=== PATIENT | female | born 1945 | race Caucasian/White ===

== ENCOUNTER 2016-07-17 04:43 | Inpatient (IN) | payer OTHER ==
[~2016-07-17] VITALS: Ht 152.4 cm; Wt 56.2 kg
[~2016-07-17 04:43] MED LIST: ALBU0.5N2 NEB; ALBUAER2 INH; ASPI1TAB83 PO; ATRINS NEB; CRFL PO; CYAN10005 PO; DILT240C57 PO; FLUO20CA35 PO; FLUT0.15 NAE; FLUT1INH INH; FURO-85 PO; HYDR5SYP11 PO; IBUP-103 PO; LORA-741 PO; OXGN; PANT40TA PO; SALI0.6517 NAE; SIMV-150 PO; TIOT1SPR INH
[2016-07-17] MEDS ORDERED: SODIUM CHLORIDE 0.9% 1000ML 250 ML IV STA (04:54)
[2016-07-17] MEDS ORDERED: ALBUT/IPRATROP 3MG/0.5MG NEB 3 ML VIAL INH STA (04:54)
[2016-07-17] MEDS ORDERED: METHYLPREDNISOLONE 125 MG VIAL IV STA (04:54)
--- NOTE | 2016-07-17 05:00 | EMERGENCY ROOM VISIT NOTE ---
History Report prepared by Julianne: Sarah Poe Under the Supervision of: Dr. Gil Gonzales M.D. First contact with patient: 04:47 Chief Complaint: RESPIRATORY PROBLEMS Stated Complaint: BREATHING DIFFICULTY History of Present Illness The patient is a 71 year old female who presents to the Emergency Room with complaints of worsening breathing problems for the past few days. She reports she was hospitalized at [facility] recently after running out of Ativan and going through withdrawal. She was treated in their psychiatric chu and was sent home approximately 4 days ago. In the past few days, her breathing has become more labored and she has become more short of breath. She admits to a history of COPD and has also been experiencing an occasionally productive cough and intermittent fever. EMS gave her a breathing treatment in the field which provided some relief. The patient notes she had left over antibiotics at home and started taking them recently when she started coughing more frequently. Source of History: patient, EMS Onset: past few days Position: chest Timing: worsening Modifying Factors (Relieving): other (breathing treatment) Associated Symptoms: + cough, + fevers Review of Systems See HPI for pertinent positives & negatives. A total of 10 systems reviewed and were otherwise negative. Past Medical & Surgical Medical Problems: (1) Benign hypertension (2) CLL (chronic lymphocytic leukemia) (3) COPD (chronic obstructive pulmonary disease) (4) COPD exacerbation (5) Dizzy spells (6) Elevated troponin (7) Non-small cell lung cancer (8) Pneumonia Surgical Problems: (1) S/P aortic valve replacement (2) S/P carpal tunnel release Family History Patient reports no known family medical history. Social History Smoking Status: Former Smoker Alcohol Use: none Drug Use: none Marital Status: Housing Status: lives with significant other Occupation Status: retired Current/Historical Medications Scheduled Cyanocobalamin (Vitamin B-12), 1,000 MCG PO DAILY Diltiazem Hcl Extended Release (Tiazac 300 Mg), 300 MG PO DAILY Donepezil HCl (Donepezil HCl), 5 MG PO DAILY Fluoxetine HCl (Fluoxetine HCl), 10 MG PO QAM Fluoxetine Hcl (Prozac), 40 MG PO QAM Fluticasone Furoate-Vilanterol (Breo Ellipta), 1 PUFF INH DAILY Fluticasone Propionate (Nasal) (Flonase Allergy Relief), 1 SPRAY PAULETTE BID Furosemide (Lasix), 1 TAB PO Q2D Gabapentin (Gabapentin), 100 MG PO TID Ipratropium [place] (Ipratropium [place]), 1 VIAL NEB QID Lactobacillus Acidophilus (Lactinex), 1 TAB PO DAILY Memantine HCl (Memantine HCl), 5 MG PO DAILY Oxygen (Oxygen), 2 LITERS NA CONTINOUS Pantoprazole (Protonix), 40 MG PO HS Saline ([place] Nasal [place]), 2 SPRAYS PAULETTE BID Simvastatin (Simvastatin), 10 MG PO HS Tiotropium [place] Monohydrate (Spiriva Respimat), 2 PUFFS INH DAILY Trazodone Hcl (Trazodone), 50 MG PO HS Scheduled PRN Albuterol Hfa (Ventolin Hfa), 2-4 PUFFS INH Q6H PRN for SOB/Wheezing Albuterol Sulf (Proventil 0.083% 2.5MG/3ML), 2.5 MG INH QID PRN for SOB/Wheezing Hydrocodone W/ Homatropine (Hycodan 5/1.5MG 5 Ml), 5 ML PO Q4H PRN for Cough Ipratropium [place] (Ipratropium [place]), 1 VIAL NEB QID PRN for SOB/Wheezing Levalbuterol Hcl (Levalbuterol Hcl), 1 VIAL NEB QID PRN for SOB/Wheezing Nystatin (Nystatin Suspension), 5 ML PO QID PRN for NEEDED Sucralfate (Carafate), 10 ML PO TID PRN for STOMACHE IRRITATION Allergies Coded Allergies: Sulfa Antibiotics (Verified Allergy, Intermediate, HIVES, 07/17/16) Physical Exam Vital Signs Date Time Temp Pulse Resp B/P Pulse Ox O2 Delivery O2 Flow Rate FiO2 07/17/16 07:00 64 22 144/65 96 Nasal Cannula 3.5 07/17/16 06:15 71 16 140/67 96 Nasal Cannula 3.5 07/17/16 05:49 63 24 138/65 97 Nasal Cannula 3.5 07/17/16 05:02 65 07/17/16 04:48 99 Nasal Cannula 3.5 07/17/16 04:48 36.8 66 17 148/69 99 Nasal Cannula 2.5 07/17/16 04:48 98 Nasal Cannula 3.5 07/17/16 04:47 98 Nasal Cannula 3.5 Physical Exam GENERAL: Patient is in no acute distress. HEENT: No acute trauma, normocephalic atraumatic, mucous membranes moist, no nasal congestion, no scleral icterus. NECK: No stridor, no adenopathy, no meningismus, trachea is midline. LUNGS: Decreased breath sounds with bilateral wheezes, breath sounds are equal, mild respiratory distress. HEART: 2/6 systolic murmur, no gallops or rubs, regular rate and rhythm. ABDOMEN: Soft, nontender, bowel sounds positive, no hernias, no peritonitis. EXTREMITIES: No cyanosis or edema, full range of motion of all the joints without pain or difficulty, no signs for acute trauma. NEUROLOGIC: Oriented x 3, no acute motor or sensory deficits, no focal weakness. SKIN: No rash, no jaundice, no diaphoresis. Medical Decision & Procedures ER Provider Diagnostic Interpretation: This X-Ray was reviewed and interpreted by myself as we do not have a radiologist on staff overnight. CHEST X-RAY Chronic hilar changes seen. There is a possible infiltrate at the left base. Laboratory Results 07/17/16 04:15 Red Blood Count 3.88, Mean Corpuscular Volume 91.2, Mean Corpuscular Hemoglobin 30.7, Mean Corpuscular Hemoglobin Concent 33.6, Mean Platelet Volume 9.5 07/17/16 04:15 Test 07/17/16 04:15 07/17/16 05:19 White Blood Count 10.35 K/uL (4.8-10.8) Red Blood Count 3.88 M/uL (4.2-5.4) Hemoglobin 11.9 g/dL (12.0-16.0) Hematocrit 35.4 % (37-47) Mean Corpuscular Volume 91.2 fL (80-100) Mean Corpuscular Hemoglobin 30.7 pg (25-34) Mean Corpuscular Hemoglobin Concent 33.6 g/dl (32-36) Platelet Count 234 K/uL (130-400) Mean Platelet Volume 9.5 fL (7.4-10.4) RDW Standard Deviation 44.0 fL (36.4-46.3) RDW Coefficient of Variation 13.2 % (11.5-14.5) Neutrophils % (Manual) 46.1 % Lymphocytes % (Manual) 29.6 % Variant Lymphocytes % (manual) 20.9 % Monocytes % (Manual) 1.7 % Eosinophils % (Manual) 1.7 % Neutrophils # (Manual) 4.77 K/uL (1.4-6.5) Total Absolute Neutrophils 4.77 K/uL (1.4-6.5) Lymphocytes # (Manual) 3.06 K/uL (1.2-3.4) Absolute Variant Lymphocytes 2.16 K/uL Total Absolute Lymphocytes 5.23 K/uL (1.2-3.4) Monocytes # (Manual) 0.18 K/uL (0.11-0.59) Eosinophils # (Manual) 0.18 K/uL (0-0.5) Smudge Cells PRESENT Prothrombin Time 10.7 SECONDS (9.0-12.0) Prothromb Time International Ratio 1.0 (0.9-1.1) Activated Partial Thromboplast Time 28.7 SECONDS (21.0-31.0) Partial Thromboplastin Ratio 1.1 Anion Gap 5.0 mmol/L (3-11) Est Creatinine Clear Calc Drug Dose 59.7 ml/min Estimated GFR () 92.3 Estimated GFR (Non- 79.6 BUN/Creatinine Ratio 13.5 (10-20) Calcium Level 9.7 mg/dl (8.5-10.1) Magnesium Level 1.9 mg/dl (1.8-2.4) Total Bilirubin 0.3 mg/dl (0.2-1) Aspartate Amino Transf (AST/SGOT) 28 U/L (15-37) Alanine Aminotransferase (ALT/SGPT) 27 U/L (12-78) Alkaline Phosphatase 87 U/L (45-117) Troponin I < 0.015 ng/ml (0-0.045) Total Protein 7.4 gm/dl (6.4-8.2) Albumin 3.1 gm/dl (3.4-5.0) Globulin 4.3 gm/dl (2.5-4.0) Albumin/Globulin Ratio 0.7 (0.9-2) Influenza Type A Antigen Neg for Influ A (NEG) Influenza Type B Antigen Neg for Influ B (NEG) Laboratory results reviewed by me. Medications Administered Medications (Trade) Dose Ordered Sig/Mee Route Start Time Stop Time Status Last Admin Dose Admin Sodium Chloride (Nss 1000ml) 250 ml @ 999 mls/hr Q16M STAT IV 07/17/16 04:54 07/17/16 05:09 DC 07/17/16 05:16 999 MLS/HR Methylprednisolone Sodium Succinate (Solu-Medrol IV) 125 mg NOW STAT IV 07/17/16 04:54 07/17/16 04:56 DC 07/17/16 05:15 125 MG Albuterol/ Ipratropium (Duoneb) 3 ml NOW STAT INH 07/17/16 04:54 07/17/16 04:56 DC 07/17/16 05:15 3 ML Piperacillin Sod/ Tazobactam Sod (Zosyn Iv) 4.5 gm NOW STAT IV 07/17/16 05:27 07/17/16 05:28 DC 07/17/16 05:47 4.5 GM ECG Indication: SOB/dyspnea Rate (beats per minute): 65 Rhythm: normal sinus (normal sinus rhythm) Findings: LBBB, no acute ischemic change, no ectopy ED Course 0448: The patient was evaluated in room A10. A complete history and physical exam was performed. 0454: Duoneb 3 ml INH, Solu-Medrol 125 mg IV, NSS 250 ml @ 999 mls/hr IV. 0527: Zosyn 4.5 gm IV. 0552: I reevaluated the patient. She is looking more comfortable. I discussed my recommendation that she remain in the hospital for further evaluation and management and she verbalized complete understanding and agreement. 0615: I discussed the patients case with Dr. Mckeon, [facility] Hospitalist. The patient will be further evaluated. Medical Decision The differential diagnoses considered include pneumonia, bronchitis, exacerbation of COPD, pneumothorax, CHF, cardiac ischemia, anemia, electrolyte imbalance and influenza. There is no leukocytosis or concerning anemia. No significant electrolyte abnormality, kidney failure or hepatitis. There is no coagulopathy. EKG shows a normal sinus rhythm with a left bundle branch block. No acute ischemia. Cardiac enzyme testing times one is not consistent with acute cardiac injury. Chest x-ray shows a hazy left lower lung consistent with a possible pneumonia. Influenza testing is negative. Blood cultures are pending. The patient received a small amount of IV saline, she was given IV Solu-Medrol and a DuoNeb. She received IV Zosyn. The patient presents with some respiratory difficulty. She appears to have an early pneumonia on x-ray. I do think the pneumonia has caused a COPD exacerbation as well. Admission/observation is warranted. I did speak to case management, the on-call hospitalist was consulted. Consults Time Called: 0555 Consulting Physician: Dr. Mckeon, [facility] Hospitalist Returned Call: 0615 I discussed the patients case with Dr. Mckeon [facility] Hospitalist. The patient will be further evaluated. Impression Primary Impression: Pneumonia Additional Impressions: SOB (shortness of breath) COPD exacerbation Scribe Attestation The scribe's documentation has been prepared under my direction and personally reviewed by me in its entirety. I confirm that the note above accurately reflects all work, treatment, procedures, and medical decision making performed by me. Departure Information Dispostion Being Evaluated By Hospitalist Referrals Kathy Ventura M.D. (PCP) Patient Instructions My [facility] Problem Qualifiers
[2016-07-17 05:08] LABS: HEMATOCRIT 35.4 % (37-47); MEAN CELL VOLUME 91.2 fL (80-100); MEAN CORPUSCULAR HEMOGLOBIN 30.7 pg (25-34); MEAN CORPUSCULAR HGB CONC 33.6 g/dl (32-36); MEAN PLATELET VOLUME 9.5 fL (7.4-10.4); PLATELET COUNT 234 K/uL (130-400); RED BLOOD COUNT 3.88 M/uL (4.2-5.4); WHITE BLOOD COUNT 10.35 K/uL (4.8-10.8)
[2016-07-17 05:22] LABS: PARTIAL THROMBOPLASTIN RATIO 1.1; PROTHROMBIN TIME (PATIENT) 10.7 SECONDS (9.0-12.0)
[2016-07-17] MEDS ORDERED: PIPERACILLIN/TAZOBACTAM 4.5 GM/100ML D5W IV STA (05:27)
[2016-07-17 05:37] LABS: ALT/SGPT 27 U/L (12-78); AST/SGOT 28 U/L (15-37); BLOOD UREA NITROGEN 10 mg/dl (7-18); BUN/CREATININE RATIO 13.5 (10-20); CALCIUM 9.7 mg/dl (8.5-10.1); CARBON DIOXIDE 34 mmol/L (21-32); CHLORIDE 100 mmol/L (98-107); CREATININE 0.75 mg/dl (0.60-1.20); GLUCOSE 121 mg/dl (70-99); MAGNESIUM 1.9 mg/dl (1.8-2.4); POTASSIUM 3.8 mmol/L (3.5-5.1); SODIUM 139 mmol/L (136-145)
[2016-07-17 05:42] LABS: ALB/GLOB RATIO 0.7 (0.9-2); ALKALINE PHOSPHATASE 87 U/L (45-117)
[2016-07-17 06:08] LABS: EOSINOPHIL % 1.7 %; LYMPH ABS # 3.06 K/uL (1.2-3.4); LYMPHOCYTE % 29.6 %; NEUTROPHILS % 46.1 %; VARIANT LYM ABS # 2.16 K/uL; VARIANT LYMPHOCYTE % 20.9 %
[2016-07-17] MEDS ORDERED: OPTIRAY 320 IV PRN (06:15)
[2016-07-17 06:19] LABS: SMUDGE CELLS PRESENT
[2016-07-17] MEDS ORDERED: MEMA1TAB3 PO (06:19)
[2016-07-17] MEDS ORDERED: ARC5 PO (06:19)
[2016-07-17] MEDS ORDERED: TRAZ50TA35 PO (06:20)
--- NOTE | 2016-07-17 06:22 | History and Physical ---
History & Physical Date & Time of Service: Jul 17, 2016 at 06:22 Chief Complaint: Breathing Difficulty Primary Care Physician: Kathy Ventura M.D. History of Present Illness Source: patient, family This is a 71 y/o F with a h/o of severe COPD (last FEV1 of 47%) O2 dependant at home, Pulm HTN, NSCLC treated with chemoradiation in 2010, radiation bronchiectasis, HTN, Aortic Stenosis s/p Aortic Valve replacement s/p dual chamber pacemaker, who presents with Dyspnea since last night. She reports trying to go to sleep for an hour but woke up with shortness of breath. She also complains of left side of throat swelling and that her legs were achy. She has had a productive cough since last week but thought it was a regular cold. She has been using her regular inhalers but has not needed any rescue. She reports being at admitted to [facility] from July 08 - July 14 for withdrawal from Ativan after having run out of her usual prescription. She reports having taken 0.5 mg daily for the last 5 years. At the time she did not have any respiratory symptoms. She uses 3.5 L at home 24 hours/day and more recently has had to use 4 L at night. Denies chest pain, fevers, chills, nausea, vomiting, diarrhea, numbness/tingling , weakness of lower extremities. Had the flu and pneumonia vaccines. Denies recent travel Denies calf tenderness In the ED, she received Solu-Medrol, Zosyn and Duonebs; after which her respiratory symptoms improved. Past Medical/Surgical History Medical Problems: (1) Benign hypertension Status: Chronic (2) CLL (chronic lymphocytic leukemia) Status: Chronic (3) COPD (chronic obstructive pulmonary disease) Status: Chronic (4) Non-small cell lung cancer Permanent Comment: Upper respiratory infection symptoms Abnormal chest CT Status post bronchoscopy and biopsy revealing adenocarcinoma Clinical stage T1a N2 M0 Status post combined radiation and chemotherapy Treatment held due to paracardial effusion status post pericardiocentesis Reinitiation and completion of treatment. Radiation was completed 03/22/2011 received 6840 cGy Status: Chronic Surgical Problems: (1) S/P aortic valve replacement Status: Chronic (2) S/P carpal tunnel release Status: Chronic Family History Patient reports no known family medical history. Social History Smoking Status: Former Smoker Drug Use: none Marital Status: Housing status: lives with family Occupational Status: retired Immunizations History of Influenza Vaccine: Yes Influenza Vaccine Date: Jan 20, 2013 History of Tetanus Vaccine?: utd History of Pneumococcal: Yes Pneumococcal Date: Apr 22, 2010 History of Hepatitis B Vaccine: No Multi-Drug Resistant Organisms History of MDRO: No Allergies Coded Allergies: Sulfa Antibiotics (Verified Allergy, Intermediate, HIVES, 07/17/16) Home Medications Scheduled Cyanocobalamin (Vitamin B-12), 1,000 MCG PO DAILY Diltiazem Hcl Extended Release (Tiazac 300 Mg), 300 MG PO DAILY Donepezil HCl (Donepezil HCl), 5 MG PO DAILY Fluoxetine HCl (Fluoxetine HCl), 10 MG PO QAM Fluoxetine Hcl (Prozac), 40 MG PO QAM Fluticasone Furoate-Vilanterol (Breo Ellipta), 1 PUFF INH DAILY Fluticasone Propionate (Nasal) (Flonase Allergy Relief), 1 SPRAY PAULETTE BID Furosemide (Lasix), 1 TAB PO Q2D Gabapentin (Gabapentin), 100 MG PO TID Ipratropium [place] (Ipratropium [place]), 1 VIAL NEB QID Lactobacillus Acidophilus (Lactinex), 1 TAB PO DAILY Memantine HCl (Memantine HCl), 5 MG PO DAILY Oxygen (Oxygen), 2 LITERS NA CONTINOUS Pantoprazole (Protonix), 40 MG PO HS Saline ([place] Nasal [place]), 2 SPRAYS PAULETTE BID Simvastatin (Simvastatin), 10 MG PO HS Tiotropium [place] Monohydrate (Spiriva Respimat), 2 PUFFS INH DAILY Trazodone Hcl (Trazodone), 50 MG PO HS Scheduled PRN Albuterol Hfa (Ventolin Hfa), 2-4 PUFFS INH Q6H PRN for SOB/Wheezing Albuterol Sulf (Proventil 0.083% 2.5MG/3ML), 2.5 MG INH QID PRN for SOB/Wheezing Hydrocodone W/ Homatropine (Hycodan 5/1.5MG 5 Ml), 5 ML PO Q4H PRN for Cough Ipratropium [place] (Ipratropium [place]), 1 VIAL NEB QID PRN for SOB/Wheezing Levalbuterol Hcl (Levalbuterol Hcl), 1 VIAL NEB QID PRN for SOB/Wheezing Nystatin (Nystatin Suspension), 5 ML PO QID PRN for NEEDED Sucralfate (Carafate), 10 ML PO TID PRN for STOMACHE IRRITATION Review of Systems Constitutional: No chills, No fever Eyes: No worsening of vision ENT: No hearing loss Respiratory: + cough, + dyspnea at rest, + dyspnea on exertion, + shortness of breath, + sputum, + wheezing Cardiovascular: No chest pain, No edema, No orthopnea Abdomen: + constipation, No diarrhea, No nausea, No pain, No vomiting Genitourinary - Female: No dysuria, No urinary frequency, No urinary urgency Neurologic: No memory loss, No numbness/tingling, No paralysis, No weakness Psychiatric: + anxiety, + depression symptoms Physical Exam Vital Signs Date Time Temp Pulse Resp B/P Pulse Ox O2 Delivery O2 Flow Rate FiO2 07/17/16 05:49 63 24 138/65 97 Nasal Cannula 3.5 07/17/16 05:02 65 07/17/16 04:48 99 Nasal Cannula 3.5 07/17/16 04:48 36.8 66 17 148/69 99 Nasal Cannula 2.5 07/17/16 04:48 98 Nasal Cannula 3.5 07/17/16 04:47 98 Nasal Cannula 3.5 General Appearance: no apparent distress Head: normocephalic, atraumatic Eyes: normal inspection, PERRL, EOMI ENT: hearing grossly normal Neck: supple, no adenopathy, no JVD, trachea midline Respiratory/Chest: + respiratory distress, + decreased breath sounds, + rhonchi , + wheezing Cardiovascular: regular rate, rhythm, no edema, + systolic murmur Abdomen/GI: normal bowel sounds, non tender, soft Back: no CVA tenderness Extremities/Musculoskelatal: no calf tenderness, no pedal edema, normal range of motion Neurologic/Psych: sausage stuffer II-XII nml as tested, no motor/sensory deficits, alert, normal mood/affect, oriented x 3 Diagnostics Laboratory Results Results Past 24 Hours Test 07/17/16 04:15 07/17/16 05:19 Range/Units White Blood Count 10.35 4.8-10.8 K/uL Red Blood Count 3.88 4.2-5.4 M/uL Hemoglobin 11.9 12.0-16.0 g/dL Hematocrit 35.4 37-47 % Mean Corpuscular Volume 91.2 80-100 fL Mean Corpuscular Hemoglobin 30.7 25-34 pg Mean Corpuscular Hemoglobin Concent 33.6 32-36 g/dl Platelet Count 234 130-400 K/uL Mean Platelet Volume 9.5 7.4-10.4 fL RDW Standard Deviation 44.0 36.4-46.3 fL RDW Coefficient of Variation 13.2 11.5-14.5 % Neutrophils % (Manual) 46.1 % Lymphocytes % (Manual) 29.6 % Variant Lymphocytes % (manual) 20.9 % Monocytes % (Manual) 1.7 % Eosinophils % (Manual) 1.7 % Neutrophils # (Manual) 4.77 1.4-6.5 K/uL Total Absolute Neutrophils 4.77 1.4-6.5 K/uL Lymphocytes # (Manual) 3.06 1.2-3.4 K/uL Absolute Variant Lymphocytes 2.16 K/uL Total Absolute Lymphocytes 5.23 1.2-3.4 K/uL Monocytes # (Manual) 0.18 0.11-0.59 K/uL Eosinophils # (Manual) 0.18 0-0.5 K/uL Smudge Cells PRESENT Prothrombin Time 10.7 9.0-12.0 SECONDS Prothromb Time International Ratio 1.0 0.9-1.1 Activated Partial Thromboplast Time 28.7 21.0-31.0 SECONDS Partial Thromboplastin Ratio 1.1 Sodium Level 139 136-145 mmol/L Potassium Level 3.8 3.5-5.1 mmol/L Chloride Level 100 98-107 mmol/L Carbon Dioxide Level 34 21-32 mmol/L Anion Gap 5.0 3-11 mmol/L Blood Urea Nitrogen 10 7-18 mg/dl Creatinine 0.75 0.60-1.20 mg/dl Est Creatinine Clear Calc Drug Dose 59.7 ml/min Estimated GFR () 92.3 Estimated GFR (Non- 79.6 BUN/Creatinine Ratio 13.5 10-20 Random Glucose 121 70-99 mg/dl Calcium Level 9.7 8.5-10.1 mg/dl Magnesium Level 1.9 1.8-2.4 mg/dl Total Bilirubin 0.3 0.2-1 mg/dl Aspartate Amino Transf (AST/SGOT) 28 15-37 U/L Alanine Aminotransferase (ALT/SGPT) 27 12-78 U/L Alkaline Phosphatase 87 45-117 U/L Troponin I < 0.015 0-0.045 ng/ml Total Protein 7.4 6.4-8.2 gm/dl Albumin 3.1 3.4-5.0 gm/dl Globulin 4.3 2.5-4.0 gm/dl Albumin/Globulin Ratio 0.7 0.9-2 Influenza Type A Antigen Neg for Influ A NEG Influenza Type B Antigen Neg for Influ B NEG Microbiology Results 07/17/16 Blood Culture, Received Pending 07/17/16 Blood Culture, Received Pending Impression Assessment and Plan This is a 71 y/o F with multiple comorbidities who presents with dyspnea Dyspnea 2/2 COPD exacerbation and probable HAP Solu-medrol 60 q8 Duonebs + Spiriva + Atrovent Cefepime + Vanc + Levaquin Sputum cultures pending Blood cultures pending Influenza negative Chest Xray with LLL infiltrate Suspicious haziness near right hilar region, new malignancy?? or mets?- will do a CT chest given history of lung cancer Supplemental O2 as needed Consider Pulm Consult given history Dysphagia NPO Dysphagia screen Speech consult Alzheimer/dementia? Continue Donepazil/memantine Anemia Not noted on previous labs Iron studies + b12/folate Gerd Protonix Anxiety: Reports taking Gabapentin now Avoid all Benzos- recent behavioral health admission CAD, CHF AVR s/p pacemaker Continue Diltiazem, Simvastatin, Lasix DVT: Lovenox Assessment and Plan Attending Addendum: I have physically seen and examined this patient, have directed their medical care, have supervised the medical residents activities, and agree with the H&P as noted above, with the following changes: The patient is awake, alert and oriented 3, normocephalic and atraumatic, appears frail, lying in bed and in no acute distress. HEENT--PERRL, EOMI, mucous membranes and oropharynx dry. Neck--supple, no JVD or bruits, thyroid normal, trachea midline, no adenopathy. Heart--normal S1 and S2, 2/6 systolic murmur, no rubs or gallops. Lungs--coarse breath sounds bilaterally, with rhonchi and wheezing bilaterally, mild respiratory distress, no accessory muscle use. Abdomen--normal bowel sounds and soft, nontender and nondistended, no hernias or masses, no organomegaly. Extremities--no cyanosis, clubbing or edema. There are good distal pulses b/l. Dermatologic--normal skin turgor, normal color, warm and dry, no abnormal lymph nodes, no rash. Neurologic--cranial nerves II through XII grossly intact, motor and sensory examination normal. Rheumatologic--normal range of motion, nontender, muscles and joints. Psychiatric--normal affect. Assessment and Plan: Non-small cell lung cancer/new right hilar mass with multiple lung metastases/ pneumonia--the patient will be admitted on cefepime IV, vancomycin IV, Levaquin IV, Solu-Medrol 60 mg IV every 8 hours, and DuoNeb's every 4 hours while awake every 2 hours when necessary. We'll consult pulmonology and oncology. Hold Breo ellipta, , Spiriva and ipratropium bromide. Hypertension--continue diltiazem extended release 3 mg by mouth daily with hold parameters, and hold furosemide. Depression/dementia--continue fluoxetine 50 mg by mouth every morning, donepezil 5 mg by mouth daily, memantine 5 mg by mouth daily and trazodone 50 mg by mouth at bedtime. GERD--continue pantoprazole 40 mg by mouth at bedtime. Hypercholesterolemia--continue simvastatin 10 mg by mouth at bedtime. Peripheral neuropathy--continue gabapentin 100 mg by mouth 3 times a day. Vitamin B12 deficiency--continue supplement 1000 g by mouth daily
[2016-07-17] MEDS ORDERED: PRZ/40 PO (06:23)
[2016-07-17] MEDS ORDERED: FLUO10CA24 PO (06:23)
[2016-07-17] MEDS ORDERED: NRN100 PO (06:23)
[2016-07-17] MEDS ORDERED: DILT300C34 PO (06:25)
[2016-07-17] MEDS ORDERED: SALI0.6510 NAE (06:27)
[2016-07-17] MEDS ORDERED: HYDR5SYP11 PO (06:29)
[2016-07-17] MEDS ORDERED: MAGNESIUM HYDROXIDE SUSP 30 ML UDC PO PRN (06:30)
[2016-07-17] MEDS ORDERED: NITROGLYCERIN 0.4 MG SL PER TAB CHARGE SL PRN (06:30)
[2016-07-17] MEDS ORDERED: FLUTICASONE PROPIONATE NA SPR 16 GM BTL NAE PRN (06:30)
[2016-07-17] MEDS ORDERED: HYDROCODONE/HOMATROPINE SYRUP 5MG/1.5MG 5ML UDP PO PRN (06:30)
[2016-07-17] MEDS ORDERED: POLYETHYLENE (MIRALAX) 17 GM PACK PO PRN (06:30)
[2016-07-17] MEDS ORDERED: LCTX PO (06:30)
[2016-07-17] MEDS ORDERED: ONDANSETRON INJ 2 MG/ML 2 ML VIAL IV PRN (06:30)
[2016-07-17] MEDS ORDERED: ALUMINUM/MAGNESIUM/SIMETH (MAALOX MAX) 30 ML UDC PO PRN (06:30)
[2016-07-17] MEDS ORDERED: SUCRALFATE 1 GM/10 ML UDC PO PRN (06:30)
[2016-07-17] MEDS ORDERED: ATRINS NEB (06:33)
[2016-07-17] MEDS ORDERED: LEVA1.258 NEB (06:33)
[2016-07-17] MEDS ORDERED: ALBINS/ INH (06:34)
[2016-07-17] MEDS ORDERED: VNTHFA/IN INH (06:34)
[2016-07-17 06:35] LABS: COMPLETE YES
[2016-07-17] MEDS ORDERED: NYSS/ PO (06:35)
--- NOTE | 2016-07-17 07:22 | DIAGNOSTIC IMAGING REPORT ---
CHEST CT WITH CONTRAST CT DOSE: 206.50 mGy.cm HISTORY: abnormal chest x-ray, hypoxia TECHNIQUE: Multiaxial CT images of the chest were performed following the intravenous administration of contrast. COMPARISON: Chest CT 08/23/2015. FINDINGS: No pneumothorax. Moderate emphysema. Small right pleural effusion. This has increased in size. Slightly hyperdense linear opacity within the lingula may be due to scarring or atelectasis. There are few small peripheral airspace opacity within the base of the left lower lobe. Patchy densities of the base of the right lower lobe with a few scattered nodular densities. Dominant nodule within the base of the right lower lobe has increased in size and currently measures 13 mm. This is best seen on image 200. Slightly progressive right perihilar opacity. There is a new 3.6 x 2.5 cm right suprahilar lobular soft tissue mass/lymphadenopathy. This abuts the mediastinal surface. There is also a new 2.8 x 2.2 cm soft tissue nodule abutting the right heart border. Soft tissue surrounding the bronchus intermedius is not significantly changed. AP window lymph nodes have also slightly increased in size. Dominant lymph node measures 9 mm, previously measuring 7 mm. The central pulmonary arteries are patent. Right-sided pacemaker and a left sided Port-A-Cath. Normal caliber thoracic aorta. Trace pericardial effusion. The spleen, liver, and adrenal glands are unremarkable. Slight increase in size of bilateral neck base/supraclavicular lymph nodes. Dominant right supraclavicular lymph node measures 14 x 9 mm, previously measuring 9 x 5 mm. Left supraclavicular lymph nodes have also increased in size. Dominant left supraclavicular lymph node measures 11 mm. Old, healed right-sided rib fractures. IMPRESSION: 1. Interval development of a 3.6 x 2.5 cm right suprahilar mass/lymph node and a 2.8 x 2.2 cm nodule abutting the right heart border. This is consistent with recurrent or metastatic disease. 2. Multiple new small nodules seen within the base the right lower lobe with the dominant nodule measuring 13 mm. This is also consistent with metastatic disease. 3. Progressive mediastinal, left hilar, and supraclavicular lymphadenopathy consistent with metastatic disease. 4. Patchy groundglass airspace opacity within the left upper lobe which may represent post radiation change or infectious pneumonitis. 5. Slight progression of the right perihilar opacification which could also be due to post radiation change or a component of underlying metastatic disease. 6. Small patchy peripheral airspace opacity within the base of the left lower lobe which may be due to an infectious process. 7. Linear slightly hyperdense consolidation within the lingula which favor scarring or atelectasis. 8. Small right pleural effusion which is increased in size. Electronically signed by: Lazaro Hernández M.D. 07/17/2016 7:21 AM Dictated Date/Time: 07/17/2016 7:05 AM
[2016-07-17] MEDS: ALBUT/IPRATROP 3MG/0.5MG NEB 3 ML VIAL INH SCH ×4 (08:00→20:03)
--- NOTE | 2016-07-17 08:29 | DIAGNOSTIC IMAGING REPORT ---
CHEST ONE VIEW PORTABLE HISTORY: EVALUATE RESPIRATORY DISTRESS.DYSPNEA COMPARISON: Chest 09/02/2015. FINDINGS: The heart is stable in size. Left subclavian Port-A-Cath terminates in the distal SVC right sided dual-chamber pacemaker. No pneumothorax. Emphysema. Right perihilar lobular density has progressed. Patchy left basilar densities have increased. Trace bilateral pleural effusions, unchanged. IMPRESSION: Progressive right perihilar lobular density which could represent developing lymphadenopathy or recurrent mass. Chest CT is recommended. Electronically signed by: Lazaro Hernández M.D. 07/17/2016 8:27 AM Dictated Date/Time: 07/17/2016 8:26 AM
[2016-07-17] MEDS: SODIUM CHLORIDE 0.65% NA SOLN 45 ML (OCEAN) NAE SCH ×2 (09:00→20:38)
[2016-07-17] MEDS ORDERED: VANCOMYCIN CONSULT ACTIVE PRN (10:00)
[2016-07-17] MEDS: LEVOFLOXACIN / D5W 750 MG in PREMIXED IN D5W 150 ML IV SCH (10:07)
[2016-07-17] MEDS: SODIUM CHLORIDE 0.9% 1000ML 1,000 ML IV SCH ×2 (10:07→20:48)
[2016-07-17] MEDS: FLUOXETINE HCL 20 MG CAP PO SCH (10:08)
[2016-07-17] MEDS: FLUOXETINE HCL 10 MG CAP PO SCH (10:08)
[2016-07-17] MEDS: TIOTROPIUM BROMIDE 5 PUFF/90 MCG INH INH SCH (10:08)
[2016-07-17] MEDS: GABAPENTIN 100 MG CAP PO SCH ×3 (10:09→20:39)
[2016-07-17] MEDS: DONEPEZIL HCL 5 MG TAB PO SCH (10:09)
[2016-07-17] MEDS: GUAIFENESIN 200 MG TAB PO SCH ×4 (10:09→20:39)
[2016-07-17] MEDS: MEMANTINE 5 MG TAB PO SCH (10:09)
[2016-07-17] MEDS: ENOXAPARIN 40 MG/0.4 ML SYR SC SCH (10:27)
[2016-07-17] MEDS: DILTIAZEM HCL 300 MG CAPCR PO SCH (10:27)
[2016-07-17] MEDS ORDERED: VANCOMYCIN INJ 1,750 MG in SODIUM CHLORIDE 0.9% 500ML 500 ML IV SCH (11:00)
[2016-07-17] MEDS: CEFEPIME IV 2,000 MG in DEXTROSE 5% 100ML 100 ML IV SCH ×2 (11:10→18:06)
[2016-07-17] MEDS: ACETAMINOPHEN 325 MG TAB PO PRN (11:11)
[2016-07-17 12:42] VITALS: BP 148/75; PULSE 68; TEMP 37; Ht 152.4 cm; Wt 56.2 kg
--- NOTE | 2016-07-17 13:16 | Pharmacy Progress Note ---
Pharmacy Antibiotic Consult Date of Service: Jul 17, 2016. Pharmacy Dosing Scope Pharmacy is consulted to initiate vancomycin IV dosing therapy, order appropriate labs and adjust drug dose/frequency. Subjective The patient is a 71 year old female admitted on Jul 17, 2016 at 06:37. Objective Height (Feet): 5 Height (Inches): 0.00 Weight (Kilograms): 71.200 Lab Results (24hrs): Laboratory Tests Test 07/17/16 04:15 BUN/Creatinine Ratio 13.5 Blood Urea Nitrogen 10 mg/dl Creatinine 0.75 mg/dl White Blood Count 10.35 K/uL Red Blood Count 3.88 M/uL Hemoglobin 11.9 g/dL Hematocrit 35.4 % Mean Corpuscular Volume 91.2 fL Mean Corpuscular Hemoglobin 30.7 pg Mean Corpuscular Hemoglobin Concent 33.6 g/dl Platelet Count 234 K/uL Mean Platelet Volume 9.5 fL Micro Results: 07/17 blood x2 pending 07/17 nasal swab pending Recent Pertinent Medications Item Value Date Time Vancomycin HCl 270 ml @ 125 mls/hr 07/18/16 0200 1000 mg/Sodium Q14H/IV Chloride Vancomycin HCl 535 ml @ 200 mls/hr 07/17/16 1100 1750 mg/Sodium TODAY@1100/IV 07/17/16 1240 Chloride Cefepime HCl 2000 112.5 ml @ 200 mls/hr 07/17/16 1000 mg/Dextrose Q8H/IV 07/17/16 1110 Levofloxacin 750 150 ml @ 100 mls/hr 07/17/16 0900 mg/Prmx Q24H/IV 07/17/16 1007 Piperacillin Sod/ 4.5 gm 07/17/16 0527 Tazobactam Sod NOW STAT/IV 07/17/16 0547 (Zosyn Iv) Assessment & Plan Loading dose: vancomycin 1750 mg IV X 1 dose (~25 mg/kg) then: vancomycin 1000 mg IV every 14 hours. Goal peak level estimate: between 25-40 mcg/mL. Goal trough level estimate: between 15-20 mcg/mL. Trough has been ordered for: 07/19/16 before 0600 dose. Pharmacy will continue to follow and will adjust dose/frequency as necessary. Thank you
[2016-07-17] MEDS: METHYLPREDNISOLONE IV 60 MG in SYRINGE 0 ML IV SCH ×2 (14:03→20:39)
[2016-07-17] MEDS: OXYCODONE/ACETAMINOPHEN 5-325 TAB PO PRN ×3 (14:03→22:07)
--- NOTE | 2016-07-17 15:07 | Oncology Consultation ---
Oncology/Heme Consultation Date of Consultation: Jul 17, 2016. Attending Physician: Lanre Mckeon M.D. Reason for Consultation: New lung masses History of Present Illness Ms. Austin is a 71 year old woman who was treated in 2010 for a stage IIIA (pT1 pN2 cM0) non-small cell lung cancer. She underwent definitive concurrent chemoradiation, which she describes tolerating poorly. She has been under surveillance since then. She has had multiple biopsies in the past for changes in her scans, but all of them have been benign. In the meantime, she's had progressively worsening lung function, due to COPD and recurrent pneumonias. She follows with Dr. Morales for her COPD, who recently increased her nasal cannula oxygen at night. That being said, she has not had a COPD-related hospitalization in a year. She is admitted now with dyspnea, fatigue, and shortness of breath. Imaging in the ER reveals multiple lung masses that were not present on her previous scan in Aug, 2015. She denies any hemoptysis, headaches, vision changes, or nausea. She has noticed some decrease in her memory recently and was started on memantine for this. She denies any focal weakness, numbness, or gait disturbance. Past Medical/Surgical History Medical Problems: (1) Cough with hemoptysis Status: Acute (2) New left bundle branch block (LBBB) Status: Acute (3) Pneumonia Status: Acute (4) Pre-syncope Status: Acute (5) SOB (shortness of breath) Status: Acute Family History Patient reports no known family medical history. Social History Smoking Status: Former Smoker Drug Use: none Marital Status: Housing Status: lives with significant other Occupation Status: retired Allergies Coded Allergies: Sulfa Antibiotics (Verified Allergy, Intermediate, HIVES, 07/17/16) Home Medications Scheduled Cyanocobalamin (Vitamin B-12), 1,000 MCG PO DAILY Diltiazem Hcl Extended Release (Tiazac 300 Mg), 300 MG PO DAILY Donepezil HCl (Donepezil HCl), 5 MG PO DAILY Fluoxetine HCl (Fluoxetine HCl), 10 MG PO QAM Fluoxetine Hcl (Prozac), 40 MG PO QAM Fluticasone Furoate-Vilanterol (Breo Ellipta), 1 PUFF INH DAILY Fluticasone Propionate (Nasal) (Flonase Allergy Relief), 1 SPRAY PAULETTE BID Furosemide (Lasix), 1 TAB PO Q2D Gabapentin (Gabapentin), 100 MG PO TID Ipratropium [place] (Ipratropium [place]), 1 VIAL NEB QID Lactobacillus Acidophilus (Lactinex), 1 TAB PO DAILY Memantine HCl (Memantine HCl), 5 MG PO DAILY Oxygen (Oxygen), 2 LITERS NA CONTINOUS Pantoprazole (Protonix), 40 MG PO HS Saline ([place] Nasal Allen), 2 SPRAYS PAULETTE BID Simvastatin (Simvastatin), 10 MG PO HS Tiotropium [place] Monohydrate (Spiriva Respimat), 2 PUFFS INH DAILY Trazodone Hcl (Trazodone), 50 MG PO HS Scheduled PRN Albuterol Hfa (Ventolin Hfa), 2-4 PUFFS INH Q6H PRN for SOB/Wheezing Albuterol Sulf (Proventil 0.083% 2.5MG/3ML), 2.5 MG INH QID PRN for SOB/Wheezing Hydrocodone W/ Homatropine (Hycodan 5/1.5MG 5 Ml), 5 ML PO Q4H PRN for Cough Ipratropium [place] (Ipratropium [place]), 1 VIAL NEB QID PRN for SOB/Wheezing Levalbuterol Hcl (Levalbuterol Hcl), 1 VIAL NEB QID PRN for SOB/Wheezing Nystatin (Nystatin Suspension), 5 ML PO QID PRN for NEEDED Sucralfate (Carafate), 10 ML PO TID PRN for STOMACHE IRRITATION Current Inpatient Medications Current Inpatient Medications Medications (Trade) Dose Ordered Sig/Mee Route Start Time Stop Time Status Last Admin Dose Admin Ioversol (Optiray 320) 100 ml UD PRN IV 07/17/16 06:15 07/21/16 06:14 Enoxaparin Sodium 40 mg 40 mg Q24H SC 07/17/16 10:00 08/16/16 09:59 07/17/16 10:27 40 MG Sodium Chloride (Nss 1000ml) 1,000 ml @ 75 mls/hr [id number] IV 07/17/16 09:00 08/16/16 08:59 07/17/16 10:07 75 MLS/HR Acetaminophen (Tylenol Tab) 650 mg Q4H PRN PO 07/17/16 06:30 08/16/16 06:29 07/17/16 11:11 650 MG Al Hydrox/Mg Hydrox/Simethicone (Maalox Max Susp) 15 ml Q4H PRN PO 07/17/16 06:30 08/16/16 06:29 Magnesium Hydroxide (Milk Of Magnesia Susp) 30 ml Q12H PRN PO 07/17/16 06:30 08/16/16 06:29 Ondansetron HCl (Zofran Inj) 4 mg Q6H PRN IV 07/17/16 06:30 08/16/16 06:29 Nitroglycerin (Nitrostat Tab) 0.4 mg UD PRN SL 07/17/16 06:30 08/16/16 06:29 Polyethylene (Miralax Powder Packet) 17 gm DAILY PRN PO 07/17/16 06:30 08/16/16 06:29 Donepezil HCl (Aricept Tab) 5 mg DAILY PO 07/17/16 09:00 08/16/16 08:59 07/17/16 10:09 5 MG Fluoxetine HCl (Prozac Cap) 10 mg QAM PO 07/17/16 09:00 08/16/16 08:59 07/17/16 10:08 10 MG Fluoxetine HCl (Prozac Cap) 40 mg QAM PO 07/17/16 09:00 08/16/16 08:59 07/17/16 10:08 40 MG Fluticasone Propionate (Flonase Nasal Allen) 2 sprays BID PRN PAULETTE 07/17/16 06:30 08/16/16 06:29 Furosemide (Lasix Tab) 20 mg Q2D PO 07/18/16 08:00 08/17/16 07:59 Gabapentin (Neurontin Cap) 100 mg TID PO 07/17/16 09:00 08/16/16 08:59 07/17/16 14:04 100 MG Hydrocodone Bit/ Homatropine Methylb (Hycodan Syrup) 5 ml Q4H PRN PO 07/17/16 06:30 07/31/16 06:29 Memantine (Namenda Tab) 5 mg DAILY PO 07/17/16 09:00 08/16/16 08:59 07/17/16 10:09 5 MG Pantoprazole Sodium (Protonix Tab) 40 mg HS PO 07/17/16 21:00 08/16/16 20:59 Simvastatin (Zocor Tab) 10 mg HS PO 07/17/16 21:00 08/16/16 20:59 Sodium Chloride (Dyer Nasal Allen) 2 sprays BID PAULETTE 07/17/16 09:00 08/16/16 08:59 07/17/16 09:00 2 SPRAYS Sucralfate (Carafate Susp) 1 gm TID PRN PO 07/17/16 06:30 08/16/16 06:29 Trazodone HCl (Desyrel Tab) 50 mg HS PO 07/17/16 21:00 08/16/16 20:59 Diltiazem HCl (Cardizem Cd Cap) 300 mg DAILY PO 07/17/16 10:00 08/16/16 09:59 07/17/16 10:27 300 MG Albuterol/ Ipratropium 3 ml 3 ml QIDR INH 07/17/16 08:00 08/16/16 07:59 Methylprednisolone Sodium Succinate 60 mg/Syringe 0.96 ml @ 1.5 mls/min Q8H IV 07/17/16 14:00 08/16/16 13:59 07/17/16 14:03 1.5 MLS/MIN Cefepime HCl 2000 mg/Dextrose 112.5 ml @ 200 mls/hr Q8H IV 07/17/16 10:00 07/24/16 09:59 07/17/16 11:10 200 MLS/HR Vancomycin HCl 1000 mg/Sodium Chloride 270 ml @ 125 mls/hr Q14H IV 07/18/16 02:00 07/24/16 11:59 Levofloxacin/Prmx (Levaquin / D5W/ Premixed D5W) 150 ml @ 100 mls/hr Q24H IV 07/17/16 09:00 07/24/16 08:59 07/17/16 10:07 100 MLS/HR Guaifenesin (Organidin Nr Tab) 200 mg Q4H PO 07/17/16 10:00 08/16/16 09:59 07/17/16 14:04 200 MG Tiotropium [place] (Spiriva Handihaler Inhaler) 1 puff QAM INH 07/17/16 09:00 08/16/16 08:59 07/17/16 10:08 1 PUFF Vancomycin HCl (Consult) 1 ea UD PRN N/A 07/17/16 10:00 08/16/16 09:59 Oxycodone/ Acetaminophen (Percocet 5-325mg Tab) 1 tab Q4H PRN PO 07/17/16 13:15 07/31/16 13:14 07/17/16 14:03 1 TAB Review of Systems Constitutional: + fatigue, + weight loss (about 10 lb), No chills, No fever Eyes: No worsening of vision ENT: No trouble swallowing, No unusual epistaxis Respiratory: + dyspnea on exertion, + shortness of breath, No hemoptysis Cardiovascular: No chest pain, No edema Abdomen: No diarrhea, No nausea, No pain, No vomiting Musculoskeletal: No joint pain, No muscle pain Genitourinary - Female: No dysuria Neurologic: + memory loss, No numbness/tingling, No weakness Hematologic / Lymphatic: No abnormal bleeding/bruising, No swollen lymph nodes Integumentary: No rash Physical Exam Date Time Temp Pulse Resp B/P Pulse Ox O2 Delivery O2 Flow Rate FiO2 07/17/16 12:42 37.0 68 18 148/75 Nasal Cannula 3.5 07/17/16 07:14 68 21 147/55 99 07/17/16 07:00 64 22 144/65 96 Nasal Cannula 3.5 07/17/16 06:15 71 16 140/67 96 Nasal Cannula 3.5 07/17/16 05:49 63 24 138/65 97 Nasal Cannula 3.5 07/17/16 05:02 65 07/17/16 04:48 99 Nasal Cannula 3.5 07/17/16 04:48 36.8 66 17 148/69 99 Nasal Cannula 2.5 07/17/16 04:48 98 Nasal Cannula 3.5 07/17/16 04:47 98 Nasal Cannula 3.5 General Appearance: no apparent distress, + thin, + pertinent finding ( chronically ill-appearing) Eyes: EOMI ENT: pharynx normal Neck: supple Respiratory/Chest: no accessory muscle use, + wheezing (scattered in all koo ), + pertinent finding Cardiovascular: regular rate, rhythm, no murmur Abdomen/GI: normal bowel sounds, non tender, soft Extremities/Musculoskelatal: no pedal edema, normal range of motion Neurologic/Psych: cocoa roaster II-XII nml as tested, alert, oriented x 3 Skin: warm/dry, no rash Laboratory Results Last 24 Hours Test 07/17/16 04:15 07/17/16 05:19 White Blood Count 10.35 K/uL Red Blood Count 3.88 M/uL Hemoglobin 11.9 g/dL Hematocrit 35.4 % Mean Corpuscular Volume 91.2 fL Mean Corpuscular Hemoglobin 30.7 pg Mean Corpuscular Hemoglobin Concent 33.6 g/dl Platelet Count 234 K/uL Mean Platelet Volume 9.5 fL RDW Standard Deviation 44.0 fL RDW Coefficient of Variation 13.2 % Neutrophils % (Manual) 46.1 % Lymphocytes % (Manual) 29.6 % Variant Lymphocytes % (manual) 20.9 % Monocytes % (Manual) 1.7 % Eosinophils % (Manual) 1.7 % Neutrophils # (Manual) 4.77 K/uL Total Absolute Neutrophils 4.77 K/uL Lymphocytes # (Manual) 3.06 K/uL Absolute Variant Lymphocytes 2.16 K/uL Total Absolute Lymphocytes 5.23 K/uL Monocytes # (Manual) 0.18 K/uL Eosinophils # (Manual) 0.18 K/uL Smudge Cells PRESENT Prothrombin Time 10.7 SECONDS Prothromb Time International Ratio 1.0 Activated Partial Thromboplast Time 28.7 SECONDS Partial Thromboplastin Ratio 1.1 Sodium Level 139 mmol/L Potassium Level 3.8 mmol/L Chloride Level 100 mmol/L Carbon Dioxide Level 34 mmol/L Anion Gap 5.0 mmol/L Blood Urea Nitrogen 10 mg/dl Creatinine 0.75 mg/dl Est Creatinine Clear Calc Drug Dose 59.7 ml/min Estimated GFR () 92.3 Estimated GFR (Non- 79.6 BUN/Creatinine Ratio 13.5 Random Glucose 121 mg/dl Calcium Level 9.7 mg/dl Magnesium Level 1.9 mg/dl Total Bilirubin 0.3 mg/dl Aspartate Amino Transf (AST/SGOT) 28 U/L Alanine Aminotransferase (ALT/SGPT) 27 U/L Alkaline Phosphatase 87 U/L Troponin I < 0.015 ng/ml Total Protein 7.4 gm/dl Albumin 3.1 gm/dl Globulin 4.3 gm/dl Albumin/Globulin Ratio 0.7 Procalcitonin < 0.05 ng/mL Influenza Type A Antigen Neg for Influ A Influenza Type B Antigen Neg for Influ B Assessment & Plan Ms. Austin's CT clearly shows multiple large lung masses that were either not present on her previous scan or are markedly progressed. This is highly suspicious for recurrence of her lung cancer. I spoke with her talent development consultant, Dr. Morales, who will evaluate her scans for the best approach to obtain a tissue diagnosis. Ms. Austin was clear she isn't interested in going through what she did last time to treat her cancer. I told her our recommendations would depend upon what we find at biopsy and her final staging. Please obtain an MRI of her brain, given her memory changes and concern for recurrent NSCLC. I will continue to follow while we establish a diagnosis.
--- NOTE | 2016-07-17 15:30 | DIAGNOSTIC IMAGING REPORT ---
Venous Doppler left leg LEFT VENOUS DOPP LOWER EXT UNILAT CLINICAL HISTORY: pain, swelling pain. Edema. TECHNIQUE: Venous Doppler COMPARISON STUDY: None FINDINGS: Normal study IMPRESSION: Normal study Electronically signed by: Sadiq Kaplan M.D. 07/17/2016 3:28 PM Dictated Date/Time: 07/17/2016 3:28 PM
[2016-07-17 15:46] VITALS: PULSE 70; O2SAT 97
[2016-07-17 16:51] VITALS: BP 162/77; PULSE 80; TEMP 36.7; O2SAT 94
--- NOTE | 2016-07-17 18:07 | Pulmonary Consultation ---
History General Date of Service: Jul 17, 2016. Stated Complaint: Copd, Pneumonia HPI The patient is a 71 year old female who presents to [facility] with complaints of Copd, Pneumonia. The patient's primary care provider is Kathy Ventura M.D.. Complicated 71y/o female admitted for COPD/PNA with PmHx: severe COPD (FEV1 47%) , mild pulmonary hypertension (RVSP 40-50mmHg, combined group 2 and group 3), RUL Stage 3A NSCLC treated successfully with chemo-radiation in 2010, s/p radiation bronchiectasis, chronic fibrotic right hilum with radiation induced scar/mass. Bronchoscopy on 08/20/2015 that showed bronchostenosis of RUL, RLL and RML, friable airway mucosa and erythematous mucosa thought secondary to radiation changes. BAL stains were negative for AFB, fungal cultures grew Ira[place] and bacterial culture grew normal pepper. Repeat CT scan of the throax shows increased right maryanne-tracheal infiltrate vs. mass. Patient notes a recent admission for SI and benzodiazepine abuse. Historian: patient, family, EMS Review of Systems Constitutional: reports: malaise, weakness ENT: reports: sore throat, throat swelling Cardiovascular: reports: no symptoms Respiratory: reports: BARRERA, cough Gastrointestinal: reports: no symptoms Genitourinary - Female: reports: no symptoms Musculoskeletal: reports: arthralgias, myalgias Integumentary: reports: no symptoms Neurologic: reports: no symptoms Psychiatric: reports: no symptoms Endocrine: no symptoms Hematologic / Lymphatic: no symptoms Allergic / Immunologic: no symptoms Past Medical History Past Medical History: ActiveProblems_10_twCiteListControlStart 1. Abdominal pain (R10.9) 2. Acute bronchitis (J20.9) 3. Acute respiratory failure (J96.00) 4. Adenocarcinoma of lung (C34.90) 5. Aortic stenosis (I35.0) 6. Aortic Valve Replacement 7. Candidiasis (B37.9) 8. Chest pain (R07.9) 9. 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 Chronic lymphocytic leukemia (C91.10) 11. Chronic obstructive pulmonary disease (J44.9) 12. Clostridium difficile colitis (A04.7) 13. Compression fracture of thoracic vertebra (S22.000A) 14. Costochondritis (M94.0) 15. Depression (F32.9) 16. Edema (R60.9) 17. Esophageal reflux (K21.9) 18. Hemoptysis (R04.2) 19. Hyperlipidemia (E78.5) 20. Hypertension (I10) 21. Lymphocytosis (D72.820) 22. Oral thrush (B37.0) 23. Phonation disorder (R49.0) 24. Pleural effusion (J90) 25. Pneumonia (J18.9) 26. Shortness of breath (R06.02) 27. Sinusitis (J32.9) 28. Solitary pulmonary nodule (R91.1) 29. Sore throat (J02.9) 30. Streptococcal sore throat (J02.0) ActiveProblems_10_twCiteListControlEnd Past Surgical History: 1. Aortic Valve Replacement 2. History of Appendectomy 3. History of Neuroplasty Decompression Median Nerve At Carpal Tunnel 4. History of Neuroplasty Decompression Median Nerve At Carpal Tunnel 5. History of Sinus Surgery Family History Patient reports no known family medical history. Social History Hx Tobacco Use In Past Year?: No Smoking Status: Former Smoker Alcohol: daily Marital status: Housing status: lives with family Occupational Status: retired Immunizations History of Influenza Vaccine: Yes Influenza Vaccine Date: Jan 20, 2013 History of Tetanus Vaccine?: utd History of Pneumococcal: Yes Pneumococcal Date: Apr 22, 2010 History of Hepatitis B Vaccine: No History of MDRO History of MDRO: No Allergies Coded Allergies: Sulfa Antibiotics (Verified Allergy, Intermediate, HIVES, 07/17/16) Current Medications Reported Home Medications Medications Dose Route/Sig Max Daily Dose Days Date Category Dose Instructions Nystatin Suspension (Nystatin) 1 Ml Susp 5 Ml PO QID PRN 07/17/16 Reported SWISH AND SWALLOW Proventil 0.083% 2.5MG/3ML (Albuterol Sulf) 2.5 Mg/3 Ml Nebu 2.5 Mg INH QID PRN 07/17/16 Reported Ventolin Hfa (Albuterol) 200 Puffs/44495 Mcg Aers 2-4 Puffs INH Q6H PRN 07/17/16 Reported Levalbuterol Hcl 1.25 Mg/3 Ml Neb 1 Vial NEB QID PRN 07/17/16 Reported TAKE WITH IPRATROPIUM Ipratropium Tyler 0.5 Mg/2.5 Ml Nebu 1 Vial NEB QID PRN 07/17/16 Reported TAKE WITH LEVALBUTEROL Lactinex (Lactobacillus Acidophilus) Tab 1 Tab PO DAILY 07/17/16 Reported Hycodan 5/1.5MG 5 Ml (Hydrocodone W/ Homatropine) 1 Syp Syp 5 Ml PO Q4H PRN 07/17/16 Reported [place] Nasal [place] (Saline) 0.65 % Spr 2 Sprays PAULETTE BID 07/17/16 Reported Tiazac 300 Mg (Diltiazem Hcl Extended Release) 300 Mg Cap 300 Mg PO DAILY 07/17/16 Reported Gabapentin 100 Mg Cap 100 Mg PO TID 07/17/16 Reported Fluoxetine HCl 10 Mg Cap 10 Mg PO QAM 07/17/16 Reported TAKE WITH 40MG Prozac (Fluoxetine Hcl) 40 Mg Cap 40 Mg PO QAM 07/17/16 Reported TAKE WITH 10MG Trazodone (Trazodone HCl) 50 Mg Tab 50 Mg PO HS 07/17/16 Reported Memantine HCl 5 Mg Tab 5 Mg PO DAILY 07/17/16 Reported Donepezil HCl 5 Mg Tab 5 Mg PO DAILY 07/17/16 Reported Simvastatin 10 Mg Tab 10 Mg PO HS 08/03/15 Reported Lasix (Furosemide) 20 Mg Tab 1 Tab PO Q2D 90 06/22/15 Reported Ipratropium [place] 0.5 Mg/2.5 Ml Nebu 1 Vial NEB QID 06/22/15 Reported Flonase Allergy Relief (Fluticasone Propionate (Nasal)) 50 Mcg/Act Spr 1 [place] PAULETTE BID 06/22/15 Reported Spiriva Respimat (Tiotropium [place] Monohydrate) 2.5 Mcg/Act Spr 2 Puffs INH DAILY 06/18/14 Reported Breo Ellipta (Fluticasone Furoate-Vilanterol) 1 Inh Inh 1 Puff INH DAILY 06/18/14 Reported 100-25 MCG/INH Carafate (Sucralfate) 1 Gm/10 Ml Jeane 10 Ml PO TID PRN 08/15/13 Reported Oxygen Gas 2 Liters NA CONTINOUS 05/13/13 Reported Vitamin B-12 (Cyanocobalamin) 1,000 Mcg Tab 1,000 Mcg PO DAILY 11/01/11 Reported Protonix (Pantoprazole Sodium) 40 Mg Tab 40 Mg PO HS 11/23/10 Reported Physical Physical Exam Vital Signs: Date Time Temp Pulse Resp B/P Pulse Ox O2 Delivery O2 Flow Rate FiO2 07/17/16 16:51 36.7 80 18 162/77 94 Nasal Cannula 3.5 07/17/16 16:00 Nasal Cannula 3.5 07/17/16 15:46 70 20 97 Nasal Cannula 3.5 07/17/16 12:42 37.0 68 18 148/75 Nasal Cannula 3.5 07/17/16 07:14 68 21 147/55 99 07/17/16 07:00 64 22 144/65 96 Nasal Cannula 3.5 07/17/16 06:15 71 16 140/67 96 Nasal Cannula 3.5 07/17/16 05:49 63 24 138/65 97 Nasal Cannula 3.5 07/17/16 05:02 65 07/17/16 04:48 99 Nasal Cannula 3.5 07/17/16 04:48 36.8 66 17 148/69 99 Nasal Cannula 2.5 07/17/16 04:48 98 Nasal Cannula 3.5 07/17/16 04:47 98 Nasal Cannula 3.5 General Appearance: mild distress (anxious) Head: NORMOCEPHALIC, ATRAUMATIC Eyes: PERRLA, NO DISCHARGE, EOMI, SCLERAE NORMAL ENT: NORMAL EAR EXAM, NORMAL NASAL EXAM, NORMAL MOUTH EXAM Neck: NORMAL RANGE OF MOTION, NO TENDERNESS, TRACHEA MIDLINE, NO STRIDOR, SUPPLE Respiratory: rhonchi, wheezing Cardiovasular: REGULAR RATE/RHYTHM, NORMAL S1S2, NO M/G/R, NO MURMUR Abdomen: NON TENDER, NORMAL BOWEL SOUNDS, NO REBOUND, NO MASSES, NO GUARDING, NO ORGANOMEGALY Genitourinary - Female: EXTERNAL GENITALIA NORMAL Back: NO MIDLINE TENDERNESS, other (left posterior mid calcivaular fracture no acute changes) Upper Extremities: NO EDEMA, NO DEFORMITY, NORMAL ROM Lower Extremities: NO EDEMA, NO DEFORMITY, NORMAL ROM Pulses: carotid (R) (1+), carotid (L) (1+), posterior tibial (R), posterior tibial (L) (2+) Neuro: ALERT, ORIENTED x 3, NORMAL MOTOR EXAM, NORMAL SENSATION Reflexes: biceps (R) (2+), bicpes (L) (2+) Babinski Testing: right (downgoing), left (downgoing) Psychiatric: NORMAL AFFECT, NO SUICIDAL IDEATION, CONTRACTS FOR SAFETY Diagnostics Labs Results Past 24 Hours Test 07/17/16 04:15 07/17/16 05:19 Range/Units White Blood Count 10.35 4.8-10.8 K/uL Red Blood Count 3.88 4.2-5.4 M/uL Hemoglobin 11.9 12.0-16.0 g/dL Hematocrit 35.4 37-47 % Mean Corpuscular Volume 91.2 80-100 fL Mean Corpuscular Hemoglobin 30.7 25-34 pg Mean Corpuscular Hemoglobin Concent 33.6 32-36 g/dl Platelet Count 234 130-400 K/uL Mean Platelet Volume 9.5 7.4-10.4 fL RDW Standard Deviation 44.0 36.4-46.3 fL RDW Coefficient of Variation 13.2 11.5-14.5 % Neutrophils % (Manual) 46.1 % Lymphocytes % (Manual) 29.6 % Variant Lymphocytes % (manual) 20.9 % Monocytes % (Manual) 1.7 % Eosinophils % (Manual) 1.7 % Neutrophils # (Manual) 4.77 1.4-6.5 K/uL Total Absolute Neutrophils 4.77 1.4-6.5 K/uL Lymphocytes # (Manual) 3.06 1.2-3.4 K/uL Absolute Variant Lymphocytes 2.16 K/uL Total Absolute Lymphocytes 5.23 1.2-3.4 K/uL Monocytes # (Manual) 0.18 0.11-0.59 K/uL Eosinophils # (Manual) 0.18 0-0.5 K/uL Smudge Cells PRESENT Prothrombin Time 10.7 9.0-12.0 SECONDS Prothromb Time International Ratio 1.0 0.9-1.1 Activated Partial Thromboplast Time 28.7 21.0-31.0 SECONDS Partial Thromboplastin Ratio 1.1 Sodium Level 139 136-145 mmol/L Potassium Level 3.8 3.5-5.1 mmol/L Chloride Level 100 98-107 mmol/L Carbon Dioxide Level 34 21-32 mmol/L Anion Gap 5.0 3-11 mmol/L Blood Urea Nitrogen 10 7-18 mg/dl Creatinine 0.75 0.60-1.20 mg/dl Est Creatinine Clear Calc Drug Dose 59.7 ml/min Estimated GFR () 92.3 Estimated GFR (Non- 79.6 BUN/Creatinine Ratio 13.5 10-20 Random Glucose 121 70-99 mg/dl Calcium Level 9.7 8.5-10.1 mg/dl Magnesium Level 1.9 1.8-2.4 mg/dl Total Bilirubin 0.3 0.2-1 mg/dl Aspartate Amino Transf (AST/SGOT) 28 15-37 U/L Alanine Aminotransferase (ALT/SGPT) 27 12-78 U/L Alkaline Phosphatase 87 45-117 U/L Troponin I < 0.015 0-0.045 ng/ml Total Protein 7.4 6.4-8.2 gm/dl Albumin 3.1 3.4-5.0 gm/dl Globulin 4.3 2.5-4.0 gm/dl Albumin/Globulin Ratio 0.7 0.9-2 Procalcitonin < 0.05 0-0.5 ng/mL Influenza Type A Antigen Neg for Influ A NEG Influenza Type B Antigen Neg for Influ B NEG Microbiology Results 07/17/16 Blood Culture, Received Pending 07/17/16 Blood Culture, Received Pending 07/17/16 MRSA DNA Surveillance Screen - Final, Complete Specimen Negative for MRSA by DNA Probe Diagnostic Radiology CT new RUL maryanne-tracheal mass vs. infiltrate EKG NSR, left axis, with LBBB Impression Assessment and Plan 71y/o female with hx of NSCLCa, COPD and new RUL nodule: 1) RUL Nodule: This is a highly suspicious nodule in a high risk patient and requires further investigation. It is possible this is only progression of our patient's previous RUL fibrosis now with complete obstruction of the RUL apical/ lateral subsegment as well. At this time the patient and her are considering repeat bronchoscopy. 2) Benzo Withdrawal: The patient notes recent admission for benzo abuse. Would continue to monitor and will have to work with primary team as patient is now facing a new RUL nodule work-up. 3) COPD: Agree with current medication regimen.
[2016-07-17 20:00] VITALS: BP 151/73; TEMP 36.4; O2SAT 97
[2016-07-17 20:03] VITALS: PULSE 89; O2SAT 98
[2016-07-17] MEDS: SIMVASTATIN 10 MG TAB PO SCH (20:38)
[2016-07-17] MEDS: TRAZODONE HCL 50 MG TAB PO SCH (20:38)
[2016-07-17] MEDS: PANTOprazole SOD 40 MG TAB PO SCH (20:39)
[2016-07-18] VITALS (12 sets, daily range): BP systolic 119–153; BP diastolic 64–78; PULSE 77–93; TEMP 36.5–36.9; O2SAT 93–98
[2016-07-18] MEDS: CEFEPIME IV 2,000 MG in DEXTROSE 5% 100ML 100 ML IV SCH (01:33)
[2016-07-18] MEDS: GUAIFENESIN 200 MG TAB PO SCH ×6 (01:34→20:53)
[2016-07-18] MEDS ORDERED: VANCOMYCIN INJ 1,000 MG in SODIUM CHLORIDE 0.9% 250ML 250 ML IV SCH (02:00)
[2016-07-18] MEDS: OXYCODONE/ACETAMINOPHEN 5-325 TAB PO PRN (02:28)
[2016-07-18] MEDS: METHYLPREDNISOLONE IV 60 MG in SYRINGE 0 ML IV SCH ×3 (05:24→20:52)
[2016-07-18 06:23] LABS: COMPLETE YES; HEMATOCRIT 32.3 % (37-47); IG% 0.3 %; LYMPH ABS # 3.73 K/uL (1.2-3.4); MEAN CORPUSCULAR HEMOGLOBIN 30.7 pg (25-34); MEAN CORPUSCULAR HGB CONC 33.7 g/dl (32-36); MEAN PLATELET VOLUME 9.3 fL (7.4-10.4); MONO % 2.9 %; NEUT % 58.8 %; PLATELET COUNT 241 K/uL (130-400); RED BLOOD COUNT 3.55 M/uL (4.2-5.4); WHITE BLOOD COUNT 9.81 K/uL (4.8-10.8)
[2016-07-18 06:50] LABS: BUN/CREATININE RATIO 9.9 (10-20); CALCIUM 8.9 mg/dl (8.5-10.1); CREATININE 0.8 mg/dl (0.60-1.20); POTASSIUM 2.9 mmol/L (3.5-5.1)
[2016-07-18] MEDS: ALBUT/IPRATROP 3MG/0.5MG NEB 3 ML VIAL INH SCH ×4 (07:43→19:58)
[2016-07-18] MEDS: FUROSEMIDE 20 MG TAB PO SCH (08:21)
[2016-07-18] MEDS: DONEPEZIL HCL 5 MG TAB PO SCH (08:22)
[2016-07-18] MEDS: TIOTROPIUM BROMIDE 5 PUFF/90 MCG INH INH SCH (08:22)
[2016-07-18] MEDS: LEVOFLOXACIN / D5W 750 MG in PREMIXED IN D5W 150 ML IV SCH (08:22)
[2016-07-18] MEDS: SODIUM CHLORIDE 0.65% NA SOLN 45 ML (OCEAN) NAE SCH ×2 (08:22→20:52)
[2016-07-18] MEDS: FLUOXETINE HCL 20 MG CAP PO SCH (08:23)
[2016-07-18] MEDS: MEMANTINE 5 MG TAB PO SCH (08:23)
[2016-07-18] MEDS: GABAPENTIN 100 MG CAP PO SCH ×3 (08:23→20:52)
[2016-07-18] MEDS: DILTIAZEM HCL 300 MG CAPCR PO SCH (08:23)
[2016-07-18] MEDS: FLUOXETINE HCL 10 MG CAP PO SCH (08:23)
[2016-07-18] MEDS: ACETAMINOPHEN 325 MG TAB PO PRN (08:27)
[2016-07-18] MEDS: POTASSIUM CHLR 10 MEQ / WTR 10 MEQ in PREMIXED WATER 100 ML IV SCH ×4 (10:12→13:32)
[2016-07-18] MEDS: ENOXAPARIN 40 MG/0.4 ML SYR SC SCH (10:12)
--- NOTE | 2016-07-18 12:46 | Pulmonology Progress Note ---
Pulmonary Progress Note Date of Service Jul 18, 2016. Attending Dr. Morales Subjective Patient "felling and breathing better." Objective Patient is able to complete full sentences without accessory muscle use. VS: Reviewed and stable RESP: rhonchi with minimal exp wheezing (b) CARD: S1S2 but distant HS unable to auscultate Assessment & Plan 71y/o female admitted with PNA, COPD exacerbation and new right maryanne-tracheal mass: 1) PNA/COPD: Patient is responding well to treatment. Suggest we monitor over the next 24hrs and if doing well switch her steroid s to PO. Continue the rest of her current regimen. 2) Lung Mass: The patient and her are not interested at this time to move forward with a bronchoscopy for evaluation. Data Medications: Current Inpatient Medications Medications (Trade) Dose Ordered Sig/Mee Route Start Time Stop Time Status Last Admin Dose Admin Ioversol (Optiray 320) 100 ml UD PRN IV 07/17/16 06:15 07/21/16 06:14 Enoxaparin Sodium (Lovenox Inj) 40 mg Q24H SC 07/17/16 10:00 08/16/16 09:59 07/18/16 10:12 40 MG Acetaminophen (Tylenol Tab) 650 mg Q4H PRN PO 07/17/16 06:30 08/16/16 06:29 07/18/16 08:27 650 MG Al Hydrox/Mg Hydrox/Simethicone (Maalox Max Susp) 15 ml Q4H PRN PO 07/17/16 06:30 08/16/16 06:29 Magnesium Hydroxide (Milk Of Magnesia Susp) 30 ml Q12H PRN PO 07/17/16 06:30 08/16/16 06:29 Ondansetron HCl (Zofran Inj) 4 mg Q6H PRN IV 07/17/16 06:30 08/16/16 06:29 Nitroglycerin (Nitrostat Tab) 0.4 mg UD PRN SL 07/17/16 06:30 08/16/16 06:29 Polyethylene (Miralax Powder Packet) 17 gm DAILY PRN PO 07/17/16 06:30 08/16/16 06:29 Donepezil HCl (Aricept Tab) 5 mg DAILY PO 07/17/16 09:00 08/16/16 08:59 07/18/16 08:22 5 MG Fluoxetine HCl (Prozac Cap) 10 mg QAM PO 07/17/16 09:00 08/16/16 08:59 07/18/16 08:23 10 MG Fluoxetine HCl (Prozac Cap) 40 mg QAM PO 07/17/16 09:00 08/16/16 08:59 07/18/16 08:23 40 MG Fluticasone Propionate (Flonase Nasal [place]) 2 sprays BID PRN PAULETTE 07/17/16 06:30 08/16/16 06:29 Furosemide (Lasix Tab) 20 mg Q2D PO 07/18/16 08:00 08/17/16 07:59 07/18/16 08:21 20 MG Gabapentin (Neurontin Cap) 100 mg TID PO 07/17/16 09:00 08/16/16 08:59 07/18/16 08:23 100 MG Hydrocodone Bit/ Homatropine Methylb (Hycodan Syrup) 5 ml Q4H PRN PO 07/17/16 06:30 07/31/16 06:29 Memantine (Namenda Tab) 5 mg DAILY PO 07/17/16 09:00 08/16/16 08:59 07/18/16 08:23 5 MG Pantoprazole Sodium (Protonix Tab) 40 mg HS PO 07/17/16 21:00 08/16/16 20:59 07/17/16 20:39 40 MG Simvastatin (Zocor Tab) 10 mg HS PO 07/17/16 21:00 08/16/16 20:59 07/17/16 20:38 10 MG Sodium Chloride (Louisa Nasal [place]) 2 sprays BID PAULETTE 07/17/16 09:00 08/16/16 08:59 07/17/16 20:38 2 SPRAYS Sucralfate (Carafate Susp) 1 gm TID PRN PO 07/17/16 06:30 08/16/16 06:29 Trazodone HCl (Desyrel Tab) 50 mg HS PO 07/17/16 21:00 08/16/16 20:59 07/17/16 20:38 50 MG Diltiazem HCl (Cardizem Cd Cap) 300 mg DAILY PO 07/17/16 10:00 08/16/16 09:59 07/18/16 08:23 300 MG Albuterol/ Ipratropium 3 ml 3 ml QIDR INH 07/17/16 08:00 08/16/16 07:59 07/18/16 11:35 3 ML Methylprednisolone Sodium Succinate 60 mg/Syringe 0.96 ml @ 1.5 mls/min Q8H IV 07/17/16 14:00 08/16/16 13:59 07/18/16 05:24 1.5 MLS/MIN Levofloxacin/Prmx (Levaquin / D5W/ Premixed D5W) 150 ml @ 100 mls/hr Q24H IV 07/17/16 09:00 07/24/16 08:59 07/18/16 08:22 100 MLS/HR Guaifenesin (Organidin Nr Tab) 200 mg Q4H PO 07/17/16 10:00 08/16/16 09:59 07/18/16 10:12 200 MG Tiotropium [place] (Spiriva Handihaler Inhaler) 1 puff QAM INH 07/17/16 09:00 08/16/16 08:59 07/18/16 08:22 1 PUFF Oxycodone/ Acetaminophen (Percocet 5-325mg Tab) 1 tab Q4H PRN PO 07/17/16 13:15 07/31/16 13:14 07/18/16 02:28 1 TAB Heparin Sodium (Porcine) 5 ml 5 ml PRN PRN IV 07/18/16 00:30 08/17/16 00:29 Potassium Chloride/Prmx (Kcl 10 Meq / Wtr/Premixed Water) 100 ml @ 100 mls/hr Q1H IV 07/18/16 09:00 07/18/16 12:59 07/18/16 12:11 100 MLS/HR I & O: 24-Hour Column 07/18/16 08:00 Intake Total 600 ml Output Total 1250 ml Balance -650 ml Vital Signs: Date Time Temp Pulse Resp B/P Pulse Ox O2 Delivery O2 Flow Rate FiO2 07/18/16 11:45 Nasal Cannula 3.5 07/18/16 11:35 89 16 98 Nasal Cannula 3.5 07/18/16 11:23 36.6 86 18 119/68 07/18/16 07:45 Nasal Cannula 3.5 07/18/16 07:43 87 16 98 Nasal Cannula 3.5 07/18/16 07:29 36.5 87 16 139/64 97 3.0 07/18/16 04:05 36.9 77 18 140/76 95 07/18/16 04:00 Nasal Cannula 3.5 07/18/16 00:00 36.6 93 16 144/72 97 Nasal Cannula 3.5 07/18/16 00:00 Nasal Cannula 3.5 07/17/16 20:03 89 16 98 Nasal Cannula 3.5 07/17/16 20:00 Nasal Cannula 3.5 07/17/16 20:00 36.4 20 151/73 97 Nasal Cannula 3.5 07/17/16 16:51 36.7 80 18 162/77 94 Nasal Cannula 3.5 07/17/16 16:00 Nasal Cannula 3.5 07/17/16 15:46 70 20 97 Nasal Cannula 3.5 07/17/16 12:42 37.0 68 18 148/75 Nasal Cannula 3.5 Laboratory Results: Last 24 Hours Test 07/17/16 20:36 07/18/16 05:50 Bedside Glucose 146 mg/dl White Blood Count 9.81 K/uL Red Blood Count 3.55 M/uL Hemoglobin 10.9 g/dL Hematocrit 32.3 % Mean Corpuscular Volume 91.0 fL Mean Corpuscular Hemoglobin 30.7 pg Mean Corpuscular Hemoglobin Concent 33.7 g/dl Platelet Count 241 K/uL Mean Platelet Volume 9.3 fL Neutrophils (%) (Auto) 58.8 % Lymphocytes (%) (Auto) 38.0 % Monocytes (%) (Auto) 2.9 % Eosinophils (%) (Auto) 0.0 % Basophils (%) (Auto) 0.0 % Neutrophils # (Auto) 5.77 K/uL Lymphocytes # (Auto) 3.73 K/uL Monocytes # (Auto) 0.28 K/uL Eosinophils # (Auto) 0.00 K/uL Basophils # (Auto) 0.00 K/uL RDW Standard Deviation 44.1 fL RDW Coefficient of Variation 13.2 % Immature Granulocyte % (Auto) 0.3 % Immature Granulocyte # (Auto) 0.03 K/uL Sodium Level 139 mmol/L Potassium Level 2.9 mmol/L Chloride Level 98 mmol/L Carbon Dioxide Level 32 mmol/L Anion Gap 9.0 mmol/L Blood Urea Nitrogen 8 mg/dl Creatinine 0.80 mg/dl Est Creatinine Clear Calc Drug Dose 51.4 ml/min Estimated GFR () 85.4 Estimated GFR (Non- 73.7 BUN/Creatinine Ratio 9.9 Random Glucose 153 mg/dl Calcium Level 8.9 mg/dl Iron Level 75 mcg/dl Total Iron Binding Capacity 240 mcg/dl Transferrin 194 mg/dl Transferrin % Saturation 28 % Ferritin 189.0 ng/ml Vitamin B12 Level 1195 pg/mL Folate 23.09 ng/mL
--- NOTE | 2016-07-18 15:13 | Hospitalist Progress Note ---
Hospitalist Progress Note Date of Service Jul 18, 2016. (Azul De Leon ., PA-C) Subjective Pt evaluation today including: conversation w/ patient, physical exam, chart review, lab review, review of studies, review of inpatient medication list Pain: none PO Intake: Tolerating PO slippery diet Voiding: no voiding problems Patient reports feeling anxious. She states that she will occasionally feel short of breath when her anxiety becomes worse, but if she "breathes through it ", the SOB feeling will pass. She also complains of wheezing and a nonproductive cough, as well as sweats. Today the patient denies any pain in her left leg; however, she states that she has numbness and tingling throughout the leg. She complains of weakness and fatigue. The patient is tolerating a slippery diet well without dysphagia. The patient denies fevers, chills, chest pain, palpitations, claudication, nausea, vomiting, abdominal pain, dysuria, hematuria, urinary retention, paralysis. Additional Comments: See HPI for pertinent positives and negatives. All other systems reviewed and negative. (Azul De Leon ., PA-C) Objective Vital Signs Date Time Temp Pulse Resp B/P Pulse Ox O2 Delivery O2 Flow Rate FiO2 07/18/16 11:45 Nasal Cannula 3.5 07/18/16 11:35 89 16 98 Nasal Cannula 3.5 07/18/16 11:23 36.6 86 18 119/68 07/18/16 07:45 Nasal Cannula 3.5 07/18/16 07:43 87 16 98 Nasal Cannula 3.5 07/18/16 07:29 36.5 87 16 139/64 97 3.0 07/18/16 04:05 36.9 77 18 140/76 95 07/18/16 04:00 Nasal Cannula 3.5 07/18/16 00:00 36.6 93 16 144/72 97 Nasal Cannula 3.5 07/18/16 00:00 Nasal Cannula 3.5 07/17/16 20:03 89 16 98 Nasal Cannula 3.5 07/17/16 20:00 Nasal Cannula 3.5 07/17/16 20:00 36.4 20 151/73 97 Nasal Cannula 3.5 07/17/16 16:51 36.7 80 18 162/77 94 Nasal Cannula 3.5 07/17/16 16:00 Nasal Cannula 3.5 07/17/16 15:46 70 20 97 Nasal Cannula 3.5 (Azul De Leon ., PUMA-C) Physical Exam General Appearance: WD/WN, no apparent distress Eyes: normal inspection, PERRL, EOMI ENT: normal ENT inspection, hearing grossly normal, pharynx normal Neck: supple, no JVD, trachea midline Respiratory/Chest: normal breath sounds, no respiratory distress, + wheezing ( scattered) Cardiovascular: regular rate, rhythm, no gallop, no murmur Abdomen: normal bowel sounds, non tender, soft Extremities: normal inspection, no pedal edema, + pertinent finding (lateral aspect of left leg tender to palpation) Neurologic/Psychiatric: alert, normal mood/affect (somewhat anxious), oriented x 3 Skin: normal color, warm/dry, no rash (Azul De Leon ., PA-C) Laboratory Results Last 24 Hours Test 07/17/16 20:36 07/18/16 05:50 Bedside Glucose 146 mg/dl White Blood Count 9.81 K/uL Red Blood Count 3.55 M/uL Hemoglobin 10.9 g/dL Hematocrit 32.3 % Mean Corpuscular Volume 91.0 fL Mean Corpuscular Hemoglobin 30.7 pg Mean Corpuscular Hemoglobin Concent 33.7 g/dl Platelet Count 241 K/uL Mean Platelet Volume 9.3 fL Neutrophils (%) (Auto) 58.8 % Lymphocytes (%) (Auto) 38.0 % Monocytes (%) (Auto) 2.9 % Eosinophils (%) (Auto) 0.0 % Basophils (%) (Auto) 0.0 % Neutrophils # (Auto) 5.77 K/uL Lymphocytes # (Auto) 3.73 K/uL Monocytes # (Auto) 0.28 K/uL Eosinophils # (Auto) 0.00 K/uL Basophils # (Auto) 0.00 K/uL RDW Standard Deviation 44.1 fL RDW Coefficient of Variation 13.2 % Immature Granulocyte % (Auto) 0.3 % Immature Granulocyte # (Auto) 0.03 K/uL Sodium Level 139 mmol/L Potassium Level 2.9 mmol/L Chloride Level 98 mmol/L Carbon Dioxide Level 32 mmol/L Anion Gap 9.0 mmol/L Blood Urea Nitrogen 8 mg/dl Creatinine 0.80 mg/dl Est Creatinine Clear Calc Drug Dose 51.4 ml/min Estimated GFR () 85.4 Estimated GFR (Non- 73.7 BUN/Creatinine Ratio 9.9 Random Glucose 153 mg/dl Calcium Level 8.9 mg/dl Iron Level 75 mcg/dl Total Iron Binding Capacity 240 mcg/dl Transferrin 194 mg/dl Transferrin % Saturation 28 % Ferritin 189.0 ng/ml Vitamin B12 Level 1195 pg/mL Folate 23.09 ng/mL (Azul De Leon PA-C) Diagnostic Results Reviewed the following studies and agree with interpretation as follows: Patient Name: RYDER CORTES Unit Number: [id number] Dictated: 07/17/161527 Transcribed: 07/17/16 152 MS Printed Date/Time: [~ rep prt dt]/[~ rep prt tm] [~ rep ct labl] - [~ rep ct ivnm] [facility] Radiology Department [place], [place] [id number] Dictated: 07/17/16 152 Transcribed: 07/17/16 1528 MS Printed Date/Time: [~ rep prt dt]/[~ rep prt tm] [~ rep ct labl] - [~ rep ct ivnm] Patient: RYDER CORTES Address1: [address] Rec: [id number] Address2: Acct ID: [id number] [facility] Zip: [place] [address] Date: 1945 Sex: F Room/Bed: [facility] Ref Phy: Kathy Ventura M.D. SC: C.MED Att Phy: Lanre Mckeon M.D. Report #: [id number] Evelyn Phy: Kathy Ventura M.D. Test: VDLEU Admit Phy: Manuela Castillo MD Box Toe Cementer: CALLIE Interpreting Phy: Sadiq Kaplan M.D. Diagnosis: COPD, PNEUMONIA Ordering Phy: Azul De Leon PA-C Service Date: 07/17/16 Admit Date: 07/18/1703/03/17 MNE: [id number] CONF: DICTATED BY: Sadiq Kaplan M.D.]] CC: De Leon, Azul ., PAKathy Bond M.D., Rick D M.D. Endcc: [~ rep ct add3]] Venous Doppler left leg LEFT VENOUS DOPP LOWER EXT UNILAT CLINICAL HISTORY: pain, swelling pain. Edema. TECHNIQUE: Venous Doppler COMPARISON STUDY: None FINDINGS: Normal study IMPRESSION: Normal study Electronically signed by: Sadiq Kaplan M.D. 07/17/2016 3:28 PM Dictated Date/Time: 07/17/2016 3:28 PM The status of this report is Signed. Draft = Not yet reviewed or approved by Radiologist. Signed = Reviewed and approved by Radiologist. <AttendingPhy>Lanre Mckeon M.D.</AttendingPhy> <FamilyPhy>Kathy Ventura M.D.</FamilyPhy> <PrimaryPhy>Kathy Ventura M.D.</PrimaryPhy> <UnitNumber> [id number]</UnitNumber> <VisitNumber>[id number]</VisitNumber> <PatientName> RYDER CORTES</PatientName> <DateOfBirth>1945</DateOfBirth> <Location>C[facility] </Location> <ServiceDate>07/17/16</ServiceDate> <MNE>ESINDI</MNE> <OrderingPhy> Azul De Leon PA-C</OrderingPhy> <OrderingPhyMNE>f rep ord dr werner</ OrderingPhyMNE> <DictatingPhyMNE>f rep dict dr werner</DictatingPhyMNE> <CCListMNE> f rep ct mne</CCListMNE> <AdmittingPhyMNE>f pt admit dr werner</AdmittingPhyMNE> < AttendingPhyMNE>f pt attend dr werner</AttendingPhyMNE> <ConsultingPhyMNE>f pt consult dr werner</ConsultingPhyMNE> <FamilyPhyMNE>f pt fam dr werner</FamilyPhyMNE> <OtherPhyMNE>f pt other dr werner</OtherPhyMNE> < PrimaryPhyMNE>f pt prim care dr werner</PrimaryPhyMNE> <ReferringPhyMNE>f pt referring dr werner</ReferringPhyMNE> (Azul De Leon ., PANancy) Assessment and Plan 71-year-old female with a history of COPD with continuous supplemental O2 use at home, anxiety, dementia, pulmonary hypertension, non-small cell lung cancer s /p chemoradiation (2010), radiation bronchiectasis, hypertension, aortic stenosis s/p aortic valve replacement, and dual chamber pacemaker who presents to the ED on 07/17 with shortness of breath. CXR shows progressive right perihilar lobular density, possible lymphadenopathy versus recurrent mass. Chest CT shows development of new lymph nodes and nodules as well as progressive lymphadenopathy consistent with metastatic disease. Also shows patchy groundglass airspace opacity left upper lobe, post radiation change versus infectious pneumonitis. Small patchy air space opacities in left lower lobe may represent infectious process. Small right pleural effusion, which is increased in size compared to 08/23/15 study. Patient was recently admitted to [facility] in the end of June due to suicidal ideation and benzodiazepine abuse. COPD exacerbation, possible HAP, new pulmonary nodules and lymphadenopathy -Admit to tele for cardiac monitoring. Patient fluctuating between A. fib and sinus rhythm on telemetry overnight -Solu-Medrol 60 mg IV q8h -DuoNebs QIDR and q2h prn SOB/wheezing -Continue Spiriva 2 puffs inh qd -O2 by protocol -Pt. follows with Dr. Morales. Pulmonology consulted, appreciate recs: Discussed with patient and , they do not wish to pursue bronchoscopy at this point. Recommend monitoring for next 24 hours and if continuing to improve , can switch to oral steroids. Continue other current treatment. -Oncology consulted, appreciate recs: Obtain MRI of brain to check for metastasis -MRI brain combo pending. Pacemaker needs to be turned to "MRI safe mode" -MRSA negative in nares, D/C vancomycin. -Patient afebrile without leukocytosis. Symptoms more likely related to progression of lung cancer. D/C cefepime -Continue Levaquin 750 mg IV qd -Sputum cultures if obtainable -Blood cultures pending -Influenza negative Hypokalemia -Potassium 2.9 on 07/18, was 3.8 on arrival -KCl 10 mEq IV x 4 given, then 20 mEq PO -Continue to monitor Dysphagia -Speech therapy consulted. Patient cleared for slippery regular diet. Tolerating well Dementia/memory loss -Continue donepezil 5 mg PO qd and Namenda 5 mg PO qd Anemia--stable -Vitamin B12 elevated, folate within normal limits -Iron, ferritin and transferrin saturation% all WNL -TIBC slightly low at 240, transferrin slightly low at 194 -Hgb stable at 10.9 on 07/18 GERD -Continue Protonix 40 mg PO qd Anxiety--recently admitted to the BHU at [facility] with benzodiazepine abuse/ withdrawal and suicidal ideation. Per [facility] records, patient has been feeling worsening anxiety and depression due to fights with her and increasing difficulty taking care of herself -Continue gabapentin 100 mg PO TID -Avoid benzos and other addictive agents HTN--stable -Continue diltiazem 300 mg PO qd HLD--stable -Continue simvastatin 10 mg PO qd DVT prophylaxis -Enoxaparin 40 mg SC q24h -SCDs Code Status -Level V, DO NOT RESUSCITATE This chart was completed in part utilizing [employer] Speech Voice Recognition software. Attempts were made to minimize the grammatical errors, random word insertions, pronoun errors and incomplete sentences. Any formal questions or concerns about the content, text or information contained within the body of this dictation should be directly addressed to the provider for clarification. (Azul De Leon ., PA-C) I agree with PA assessment and plan and have seen and examined pt myself Resting comfortably in bed States pain in left leg improved No fevers chills or worsening sob Spoke with pulm No bronch at this time Can likely transition to PO steroids soon (Sharath Logan, D.O.)
--- NOTE | 2016-07-18 15:59 | Hematology/Oncology Prog Note ---
Hematology/Onc Progress Note Date of Service Jul 18, 2016. Diagnoses History of lung cancer COPD New lung nodule Medications Medications Administered Medications (Trade) Dose Ordered Sig/Mee Route Start Time Stop Time Status Last Admin Dose Admin Sodium Chloride (Nss 1000ml) 250 ml @ 999 mls/hr Q16M STAT IV 07/17/16 04:54 07/17/16 05:09 DC 07/17/16 05:16 999 MLS/HR Methylprednisolone Sodium Succinate (Solu-Medrol IV) 125 mg NOW STAT IV 07/17/16 04:54 07/17/16 04:56 DC 07/17/16 05:15 125 MG Albuterol/ Ipratropium (Duoneb) 3 ml NOW STAT INH 07/17/16 04:54 07/17/16 04:56 DC 07/17/16 05:15 3 ML Piperacillin Sod/ Tazobactam Sod (Zosyn Iv) 4.5 gm NOW STAT IV 07/17/16 05:27 07/17/16 05:28 DC 07/17/16 05:47 4.5 GM Enoxaparin Sodium 40 mg 40 mg Q24H SC 07/17/16 10:00 08/16/16 09:59 07/18/16 10:12 40 MG Sodium Chloride (Nss 1000ml) 1,000 ml @ 75 mls/hr [id number] IV 07/17/16 09:00 07/18/16 08:38 DC 07/17/16 20:48 75 MLS/HR Acetaminophen (Tylenol Tab) 650 mg Q4H PRN PO 07/17/16 06:30 08/16/16 06:29 07/18/16 08:27 650 MG Donepezil HCl (Aricept Tab) 5 mg DAILY PO 07/17/16 09:00 08/16/16 08:59 07/18/16 08:22 5 MG Fluoxetine HCl (Prozac Cap) 10 mg QAM PO 07/17/16 09:00 08/16/16 08:59 07/18/16 08:23 10 MG Fluoxetine HCl (Prozac Cap) 40 mg QAM PO 07/17/16 09:00 08/16/16 08:59 07/18/16 08:23 40 MG Furosemide (Lasix Tab) 20 mg Q2D PO 07/18/16 08:00 08/17/16 07:59 07/18/16 08:21 20 MG Gabapentin (Neurontin Cap) 100 mg TID PO 07/17/16 09:00 08/16/16 08:59 07/18/16 13:33 100 MG Memantine (Namenda Tab) 5 mg DAILY PO 07/17/16 09:00 08/16/16 08:59 07/18/16 08:23 5 MG Pantoprazole Sodium (Protonix Tab) 40 mg HS PO 07/17/16 21:00 08/16/16 20:59 07/17/16 20:39 40 MG Simvastatin (Zocor Tab) 10 mg HS PO 07/17/16 21:00 08/16/16 20:59 07/17/16 20:38 10 MG Sodium Chloride (Hyde Nasal [place]) 2 sprays BID PAULETTE 07/17/16 09:00 08/16/16 08:59 07/17/16 20:38 2 SPRAYS Trazodone HCl (Desyrel Tab) 50 mg HS PO 07/17/16 21:00 08/16/16 20:59 07/17/16 20:38 50 MG Diltiazem HCl (Cardizem Cd Cap) 300 mg DAILY PO 07/17/16 10:00 08/16/16 09:59 07/18/16 08:23 300 MG Albuterol/ Ipratropium 3 ml 3 ml QIDR INH 07/17/16 08:00 08/16/16 07:59 07/18/16 15:36 3 ML Methylprednisolone Sodium Succinate 60 mg/Syringe 0.96 ml @ 1.5 mls/min Q8H IV 07/17/16 14:00 08/16/16 13:59 07/18/16 13:33 1.5 MLS/MIN Cefepime HCl 2000 mg/Dextrose 112.5 ml @ 200 mls/hr Q8H IV 07/17/16 10:00 07/18/16 08:48 DC 07/18/16 01:33 200 MLS/HR Vancomycin HCl 1000 mg/Sodium Chloride 270 ml @ 125 mls/hr Q14H IV 07/18/16 02:00 07/18/16 08:48 DC 07/18/16 02:28 125 MLS/HR Levofloxacin/Prmx (Levaquin / D5W/ Premixed D5W) 150 ml @ 100 mls/hr Q24H IV 07/17/16 09:00 07/24/16 08:59 07/18/16 08:22 100 MLS/HR Guaifenesin (Organidin Nr Tab) 200 mg Q4H PO 07/17/16 10:00 08/16/16 09:59 07/18/16 13:33 200 MG Tiotropium [place] 1 puff 1 puff QAM INH 07/17/16 09:00 08/16/16 08:59 07/18/16 08:22 1 PUFF Vancomycin HCl/ Sodium Chloride (Vancomycin Inj/ Nss 500ml) 535 ml @ 200 mls/hr TODAY@1100 IV 07/17/16 11:00 07/17/16 13:42 DC 07/17/16 12:40 200 MLS/HR Oxycodone/ Acetaminophen 1 tab 1 tab Q4H PRN PO 07/17/16 13:15 07/31/16 13:14 07/18/16 02:28 1 TAB Potassium Chloride/Prmx (Kcl 10 Meq / Wtr/Premixed Water) 100 ml @ 100 mls/hr Q1H IV 07/18/16 09:00 07/18/16 12:59 DC 07/18/16 13:32 100 MLS/HR Subjective Ms. Austin is feeling better today. Her breathing is improved. She still has limitations with ambulation, however, and will be working with PT. She was unable to tolerate the MRI due to claustrophobia. Review of Systems: Constitutional: No fatigue, No fever Eyes: No worsening of vision Respiratory: + shortness of breath (improving), No cough, No hemoptysis Cardiovascular: No chest pain Abdomen: No nausea, No pain, No vomiting Musculoskeletal: No joint pain, No muscle pain Neurologic: No numbness/tingling, No weakness Heme: No abnormal bleeding/bruising Skin: No rash Vital Signs Vital Signs Past 12 Hours Date Time Temp Pulse Resp B/P Pulse Ox O2 Delivery O2 Flow Rate FiO2 07/18/16 15:36 81 16 96 Nasal Cannula 3.5 07/18/16 14:52 36.7 81 18 129/76 95 3.0 07/18/16 11:45 Nasal Cannula 3.5 07/18/16 11:35 89 16 98 Nasal Cannula 3.5 07/18/16 11:23 36.6 86 18 119/68 07/18/16 07:45 Nasal Cannula 3.5 07/18/16 07:43 87 16 98 Nasal Cannula 3.5 07/18/16 07:29 36.5 87 16 139/64 97 3.0 07/18/16 04:05 36.9 77 18 140/76 95 07/18/16 04:00 Nasal Cannula 3.5 Physical Exam Constitutional: General Apperance: heathly-appearing Level of Distress: NAD Psychiatric: Mental Status: active & alert Orientation: oriented except where noted Lungs: Auscuitation: expiratory wheezing (scattered) Cardiovascular: Heart Auscultation: RRR, no murmurs Abdomen: Inspection & Palpation: soft, no tenderness, guarding & rebound Extremities: no edema Laboratory Last 24 Hours Test 07/17/16 20:36 07/18/16 05:50 Bedside Glucose 146 mg/dl White Blood Count 9.81 K/uL Red Blood Count 3.55 M/uL Hemoglobin 10.9 g/dL Hematocrit 32.3 % Mean Corpuscular Volume 91.0 fL Mean Corpuscular Hemoglobin 30.7 pg Mean Corpuscular Hemoglobin Concent 33.7 g/dl Platelet Count 241 K/uL Mean Platelet Volume 9.3 fL Neutrophils (%) (Auto) 58.8 % Lymphocytes (%) (Auto) 38.0 % Monocytes (%) (Auto) 2.9 % Eosinophils (%) (Auto) 0.0 % Basophils (%) (Auto) 0.0 % Neutrophils # (Auto) 5.77 K/uL Lymphocytes # (Auto) 3.73 K/uL Monocytes # (Auto) 0.28 K/uL Eosinophils # (Auto) 0.00 K/uL Basophils # (Auto) 0.00 K/uL RDW Standard Deviation 44.1 fL RDW Coefficient of Variation 13.2 % Immature Granulocyte % (Auto) 0.3 % Immature Granulocyte # (Auto) 0.03 K/uL Sodium Level 139 mmol/L Potassium Level 2.9 mmol/L Chloride Level 98 mmol/L Carbon Dioxide Level 32 mmol/L Anion Gap 9.0 mmol/L Blood Urea Nitrogen 8 mg/dl Creatinine 0.80 mg/dl Est Creatinine Clear Calc Drug Dose 51.4 ml/min Estimated GFR () 85.4 Estimated GFR (Non- 73.7 BUN/Creatinine Ratio 9.9 Random Glucose 153 mg/dl Calcium Level 8.9 mg/dl Iron Level 75 mcg/dl Total Iron Binding Capacity 240 mcg/dl Transferrin 194 mg/dl Transferrin % Saturation 28 % Ferritin 189.0 ng/ml Vitamin B12 Level 1195 pg/mL Folate 23.09 ng/mL Assessment & Plan Ms. Austin is doing better. She refused bronchoscopy at this time, preferring to let her acute issues settle down and to reconsider it as an outpatient. I think that is reasonable and would want to see her in the office in a few weeks after discharge. In the meantime, we could also consider a PET/CT, given the question of whether this finding represents a tumor or atelectasis/post-RT change. With regard to her anemia, her TIBC and transferrin are low, suggestive of anemia of chronic inflammation. She has no signs of bleeding and her acute drop from yesterday may be related to hemodilution.
[2016-07-18] MEDS ORDERED: POTASSIUM CHLORIDE 20 MEQ TABCR PO ONE (18:00)
[2016-07-18] MEDS: TRAZODONE HCL 50 MG TAB PO SCH (20:52)
[2016-07-18] MEDS: SIMVASTATIN 10 MG TAB PO SCH (20:53)
[2016-07-18] MEDS: PANTOprazole SOD 40 MG TAB PO SCH (20:53)
[2016-07-18] MEDS: hydrOXYzine HCL 10 MG TAB PO PRN (22:05)
[2016-07-19] VITALS (12 sets, daily range): BP systolic 133–182; BP diastolic 61–77; PULSE 18–101; TEMP 36.7–36.9; O2SAT 95–98
[2016-07-19] MEDS: GUAIFENESIN 200 MG TAB PO SCH ×7 (02:00→21:31)
[2016-07-19] MEDS ORDERED: VANCOMYCIN TROUGH SCH (05:30)
[2016-07-19] MEDS: METHYLPREDNISOLONE IV 60 MG in SYRINGE 0 ML IV SCH (05:53)
[2016-07-19 06:29] LABS: HEMATOCRIT 35.2 % (37-47); MEAN CELL VOLUME 91.4 fL (80-100); MEAN CORPUSCULAR HEMOGLOBIN 29.9 pg (25-34); MEAN CORPUSCULAR HGB CONC 32.7 g/dl (32-36); MEAN PLATELET VOLUME 9.1 fL (7.4-10.4); PLATELET COUNT 281 K/uL (130-400); RED BLOOD COUNT 3.85 M/uL (4.2-5.4)
[2016-07-19 07:02] LABS: CREATININE 0.85 mg/dl (0.60-1.20)
[2016-07-19 07:03] LABS: BUN/CREATININE RATIO 15.9 (10-20); CALCIUM 9.1 mg/dl (8.5-10.1); MAGNESIUM 1.8 mg/dl (1.8-2.4); POTASSIUM 3.1 mmol/L (3.5-5.1)
[2016-07-19] MEDS: ALBUT/IPRATROP 3MG/0.5MG NEB 3 ML VIAL INH SCH ×4 (07:48→19:54)
[2016-07-19] MEDS: LEVOFLOXACIN / D5W 750 MG in PREMIXED IN D5W 150 ML IV SCH (08:10)
[2016-07-19] MEDS: SODIUM CHLORIDE 0.65% NA SOLN 45 ML (OCEAN) NAE SCH ×2 (08:10→21:28)
[2016-07-19] MEDS: TIOTROPIUM BROMIDE 5 PUFF/90 MCG INH INH SCH (08:10)
[2016-07-19] MEDS: DILTIAZEM HCL 300 MG CAPCR PO SCH (08:11)
[2016-07-19] MEDS: FLUOXETINE HCL 20 MG CAP PO SCH (08:11)
[2016-07-19] MEDS: MEMANTINE 5 MG TAB PO SCH (08:11)
[2016-07-19] MEDS: FLUOXETINE HCL 10 MG CAP PO SCH (08:11)
[2016-07-19] MEDS: GABAPENTIN 100 MG CAP PO SCH ×3 (08:11→21:30)
[2016-07-19] MEDS: POTASSIUM CHLORIDE 20 MEQ TABCR PO SCH ×2 (08:11→21:30)
[2016-07-19] MEDS: ENOXAPARIN 40 MG/0.4 ML SYR SC SCH (09:04)
[2016-07-19] MEDS: DONEPEZIL HCL 5 MG TAB PO SCH (09:04)
--- NOTE | 2016-07-19 12:05 | Hospitalist Progress Note ---
Hospitalist Progress Note Date of Service Jul 19, 2016. (Azul De Leon ., DIONISIOC) Subjective Pt evaluation today including: conversation w/ patient, physical exam, chart review, lab review, review of inpatient medication list Pain: None PO Intake: Tolerating PO diet Voiding: no voiding problems Patient reports feeling very anxious. She states that she was having a lot of trouble last night in particular and had a lot of difficulty sleeping. She did eventually receive Benadryl and Vistaril, which seemed to help and allowed her to get some sleep. She complains of shortness of breath, which she states is due to a globus sensation. She also complains of brief episodes of nausea following the administration of her medications, but states that this quickly passes and resolves on its own. Today, she states that her left leg is still numb and tingly but feels better than yesterday, and she denies any pain. She complains of weakness and fatigue. The patient denies fevers, chills, sweats, chest pain, palpitations, claudication, cough, wheezing, vomiting, abdominal pain, dysuria, hematuria, urinary retention, and paralysis. Additional Comments: See HPI for pertinent positives and negatives. All other systems reviewed and negative. (Azul De Leon ., PUMA-C) Objective Vital Signs Date Time Temp Pulse Resp B/P Pulse Ox O2 Delivery O2 Flow Rate FiO2 07/19/16 11:28 36.7 89 20 145/73 95 Nasal Cannula 4.0 07/19/16 09:50 Nasal Cannula 3.0 07/19/16 07:48 92 16 97 Nasal Cannula 3.5 07/19/16 07:45 Nasal Cannula 3.0 07/19/16 07:13 36.7 18 18 133/61 96 Nasal Cannula 2.0 07/19/16 04:22 36.9 97 20 137/64 97 Nasal Cannula 3.0 07/19/16 04:00 Nasal Cannula 3.0 07/19/16 00:01 Nasal Cannula 3.0 07/18/16 23:10 36.5 80 16 153/74 93 Nasal Cannula 3.5 07/18/16 20:00 Nasal Cannula 3.5 07/18/16 19:58 79 16 97 Nasal Cannula 3.5 07/18/16 19:14 36.7 93 16 153/78 94 Nasal Cannula 3.0 07/18/16 18:16 90 20 127/71 96 Nasal Cannula 3.0 07/18/16 15:36 81 16 96 Nasal Cannula 3.5 07/18/16 15:30 Nasal Cannula 3.5 07/18/16 14:52 36.7 81 18 129/76 95 3.0 (Azul De Leon ., PA-C) Physical Exam General Appearance: WD/WN, + moderate distress (appears very anxious and agitated) Eyes: normal inspection, PERRL, EOMI ENT: normal ENT inspection, hearing grossly normal, TMs normal Neck: supple, no JVD, trachea midline Respiratory/Chest: normal breath sounds, no respiratory distress, + wheezing Cardiovascular: regular rate, rhythm, no gallop, no murmur Abdomen: normal bowel sounds, non tender, soft Extremities: non-tender, normal inspection, no pedal edema Neurologic/Psychiatric: alert, oriented x 3, + pertinent finding (very anxious , agitated. increased shaking/tremors today.) Skin: normal color, warm/dry, no rash (Azul De Leon ., PA-C) Laboratory Results Last 24 Hours Test 07/19/16 05:55 White Blood Count 16.20 K/uL Red Blood Count 3.85 M/uL Hemoglobin 11.5 g/dL Hematocrit 35.2 % Mean Corpuscular Volume 91.4 fL Mean Corpuscular Hemoglobin 29.9 pg Mean Corpuscular Hemoglobin Concent 32.7 g/dl RDW Standard Deviation 45.0 fL RDW Coefficient of Variation 13.5 % Platelet Count 281 K/uL Mean Platelet Volume 9.1 fL Sodium Level 141 mmol/L Potassium Level 3.1 mmol/L Chloride Level 98 mmol/L Carbon Dioxide Level 34 mmol/L Anion Gap 9.0 mmol/L Blood Urea Nitrogen 14 mg/dl Creatinine 0.85 mg/dl Est Creatinine Clear Calc Drug Dose 48.4 ml/min Estimated GFR () 79.3 Estimated GFR (Non- 68.5 BUN/Creatinine Ratio 15.9 Random Glucose 149 mg/dl Calcium Level 9.1 mg/dl Magnesium Level 1.8 mg/dl (Azul De Leon ., PA-C) Assessment and Plan 71-year-old female with a history of COPD with continuous supplemental O2 use at home, anxiety, dementia, pulmonary hypertension, non-small cell lung cancer s /p chemoradiation (2010), radiation bronchiectasis, hypertension, aortic stenosis s/p aortic valve replacement, and dual chamber pacemaker who presents to the ED on 07/17 with shortness of breath. CXR shows progressive right perihilar lobular density, possible lymphadenopathy versus recurrent mass. Chest CT shows development of new lymph nodes and nodules as well as progressive lymphadenopathy consistent with metastatic disease. Also shows patchy groundglass airspace opacity left upper lobe, post radiation change versus infectious pneumonitis. Small patchy air space opacities in left lower lobe may represent infectious process. Small right pleural effusion, which is increased in size compared to 08/23/15 study. Patient was recently admitted to [facility] in the end of June due to suicidal ideation and benzodiazepine abuse. COPD exacerbation, possible HAP, new pulmonary nodules and lymphadenopathy -Admit to tele for cardiac monitoring. Patient remained in sinus rhythm with heart rate in the 80s to 90s overnight, no episodes of A. fib 07/19 -D/C Solu-Medrol. Pt received 1 dose of 60 mg IV this morning. Start Prednisone 40 mg PO qd tomorrow. -DuoNebs QIDR and q2h prn SOB/wheezing -Continue Spiriva 2 puffs inh qd -O2 by protocol -Pt. follows with Dr. Morales. Pulmonology consulted, appreciate recs: D iscussed with patient and , they do not wish to pursue bronchoscopy at this point. Continue current treatment. -Oncology consulted, appreciate recs: Consider PET/CT scan. Iron studies suggest anemia of chronic inflammation. -Pt unable to tolerate MRI -MRSA negative in nares, D/C vancomycin. -Patient afebrile without leukocytosis. Symptoms more likely related to progression of lung cancer. D/C cefepime -D/C IV Levaquin. Pt had already received dose this morning. Switch to PO Levaquin 750 mg tomorrow. -Sputum cultures if obtainable -Blood cultures NGTD x2 -Influenza negative Hypokalemia--improving -Potassium 2.9 on 07/18, was 3.8 on arrival -KCl 10 mEq IV x 4 given, then 20 mEq PO -Potassium 3.1 on 07/19 -KCl 20 mEq PO BID -Continue to monitor Dysphagia -Speech therapy consulted. Patient cleared for slippery regular diet. Tolerating well Dementia/memory loss -Continue donepezil 5 mg PO qd and Namenda 5 mg PO qd Anemia--stable -Vitamin B12 elevated, folate within normal limits -Iron, ferritin and transferrin saturation% all WNL -TIBC slightly low at 240, transferrin slightly low at 194 -Hgb stable at 11.5 on /5 GERD -Continue Protonix 40 mg PO qd Anxiety--worsening. Recently admitted to the BHU at [facility] with benzodiazepine abuse/withdrawal and suicidal ideation. Per [facility] records, patient has been feeling worsening anxiety and depression due to fights with her and increasing difficulty taking care of herself -Continue gabapentin 100 mg PO TID -Avoid benzos and other addictive agents -Patient appears worse today. Required Benadryl and Vistaril to get to sleep last night. More shaky today. No suicidal ideation -Consult psychiatry HTN--stable -Continue diltiazem 300 mg PO qd HLD--stable -Continue simvastatin 10 mg PO qd DVT prophylaxis -Enoxaparin 40 mg SC q24h -SCDs Code Status -Level V, DO NOT RESUSCITATE Dispo -Patient from home. Lives with -States she cannot go home because she cannot take care of herself and her can no longer help her -PT/OT evaluate and treat -Referral placed to Home Nursing Agency This chart was completed in part utilizing [employer] Speech Voice Recognition software. Attempts were made to minimize the grammatical errors, random word insertions, pronoun errors and incomplete sentences. Any formal questions or concerns about the content, text or information contained within the body of this dictation should be directly addressed to the provider for clarification. (zAul De Leon ., PA-C) I agree with PA assessment and plan and have seen and examined pt myself States feeling anxious and needs to go to a nursing facility as will not be able to take care of her Noted worsening anxiety, denies suicidal ideations Psych consulted PT/OT consulted Await likely placement (Sharath Logan, D.O.)
--- NOTE | 2016-07-19 12:49 | Psychiatric Consultation ---
Consultation Date of Consultation Jul 19, 2016. Identifying Data Bridget Austin is a 71-year-old female who currently lives in [place] with her , has a history of depression, anxiety, benzodiazepine overuse and withdrawal, and was admitted to the hospitalist service after she presented with worsening breathing problems. Psychiatry is consulted for anxiety. Chief Complaint "They took me down for that brain scan yesterday, put me in that tube, and I was nervous". History of Present Illness Per review of records, the patient presented to our emergency room 2 days ago with worsening shortness of breath. Pulmonology and hematology/oncology have both been consulted as new left lesions were visualized on her chest x-ray, and is declining bronchoscopy at this time. She states she prefers to let her acute issues resolve, and may reconsider it as an outpatient. Records from [facility] were also reviewed. The patient presented to their hospital 07/06/2016 with benzodiazepine withdrawal, after taking double the dose of her Ativan and running out early. She was admitted to their medical service, and then transferred to the behavioral health unit after she expressed worsening depression and suicidal ideation. While there, she was tapered off of Ativan, and started on trazodone 50 mg at bedtime for sleep. She was continued on her home dose of fluoxetine 50 mg daily. She follows with Dr. Multani at [facility], saw him on Sunday, and was started on gabapentin 100 mg 3 times a day. She is reported anxiety episodically throughout her stay here, and was anxious when discussing discharge, stating she was not sure if her would be able to care for her at home. PT and OT have been consulted and referrals made for home nursing. On my assessment, the patient is seen with her . She states she had a difficult time during her admission at [facility], as she did not particularly like being on the psychiatric unit, and wishes that her Ativan could be added back on, although she understands the reasons why it is not a safe choice. Her mood has improved since discharge from that facility, but anxiety continues, is episodic, and consists of excessive worry, difficulty controlling the worry, and feeling "scared" when around unfamiliar people and not at home. She is comforted by being at home and being around her . She denies acute stressors contributing to her anxiety, other than being in the hospital. She does have panic attacks, which she describes as "legs get crampy and weak," and also endorses shortness of breath and chest tightness. She just started the gabapentin about 5 days ago, and does not think it is helping very much. Mood has improved since she was discharged from [facility] a couple of weeks ago, and she denies suicidality. She states that she had never seriously considered suicide, but when I asked her in the outside hospital emergency room if she had thought of ending her life , she said yes, because she was so distraught and "in a panic." She struggles with chronic insomnia, but denies symptoms of vlad and psychosis. She does not think she has ever been on higher doses of fluoxetine. Past Psychiatric History Current OP Treatment: psychiatrist (Dr. Multani at [facility]) Prior Psych Hospitalizations: [facility] Suicide Attempts: No Past Medical/Surgical History (1) Benign hypertension (2) Hiatal hernia (3) Hypercholesterolemia (4) Non-small cell lung cancer (5) Pneumonia (6) COPD exacerbation Allergies Allergies: Coded Allergies: Sulfa Antibiotics (Verified Allergy, Intermediate, HIVES, 07/17/16) Home Medications Scheduled Cyanocobalamin (Vitamin B-12), 1,000 MCG PO DAILY Diltiazem Hcl Extended Release (Tiazac 300 Mg), 300 MG PO DAILY Donepezil HCl (Donepezil HCl), 5 MG PO DAILY Fluoxetine HCl (Fluoxetine HCl), 10 MG PO QAM Fluoxetine Hcl (Prozac), 40 MG PO QAM Fluticasone Furoate-Vilanterol (Breo Ellipta), 1 PUFF INH DAILY Fluticasone Propionate (Nasal) (Flonase Allergy Relief), 1 SPRAY PAULETTE BID Furosemide (Lasix), 1 TAB PO Q2D Gabapentin (Gabapentin), 100 MG PO TID Ipratropium [place] (Ipratropium [place]), 1 VIAL NEB QID Lactobacillus Acidophilus (Lactinex), 1 TAB PO DAILY Memantine HCl (Memantine HCl), 5 MG PO DAILY Oxygen (Oxygen), 2 LITERS NA CONTINOUS Pantoprazole (Protonix), 40 MG PO HS Saline (Egan Nasal [place]), 2 SPRAYS PAULETTE BID Simvastatin (Simvastatin), 10 MG PO HS Tiotropium [place] Monohydrate (Spiriva Respimat), 2 PUFFS INH DAILY Trazodone Hcl (Trazodone), 50 MG PO HS Scheduled PRN Albuterol Hfa (Ventolin Hfa), 2-4 PUFFS INH Q6H PRN for SOB/Wheezing Albuterol Sulf (Proventil 0.083% 2.5MG/3ML), 2.5 MG INH QID PRN for SOB/Wheezing Hydrocodone W/ Homatropine (Hycodan 5/1.5MG 5 Ml), 5 ML PO Q4H PRN for Cough Ipratropium [place] (Ipratropium [place]), 1 VIAL NEB QID PRN for SOB/Wheezing Levalbuterol Hcl (Levalbuterol Hcl), 1 VIAL NEB QID PRN for SOB/Wheezing Nystatin (Nystatin Suspension), 5 ML PO QID PRN for NEEDED Sucralfate (Carafate), 10 ML PO TID PRN for STOMACHE IRRITATION Family History Patient reports no known family medical history. History of Suicide: No History of Substance Abuse: No Psychiatric History: No Alcohol Use Alcohol Use In Past 12 Months: No Smoking Use Smoking Status: Former Smoker (quit 1 year ago, [id number] history) Substance History Denies any history of abusing illicit substances. Did overuse her Ativan, and then had withdrawal when she ran out early. Personal History Lives in: [place] with her Childhood: Born and raised in [place]. Had 9 siblings. Work History: Retired. Relationship History: Children: her son lives next door and daughter lives 12 miles away Review of Systems 10 systems reviewed; positive for shortness of breath and weakness which is episodic, others negative except as stated above. Examination Vital Signs Vital Signs Past 12 Hours Date Time Temp Pulse Resp B/P Pulse Ox O2 Delivery O2 Flow Rate FiO2 07/19/16 12:00 Nasal Cannula 3.0 07/19/16 11:38 87 95 07/19/16 11:28 36.7 89 20 145/73 95 Nasal Cannula 4.0 07/19/16 09:50 Nasal Cannula 3.0 07/19/16 07:48 92 16 97 Nasal Cannula 3.5 07/19/16 07:45 Nasal Cannula 3.0 07/19/16 07:13 36.7 18 18 133/61 96 Nasal Cannula 2.0 07/19/16 04:22 36.9 97 20 137/64 97 Nasal Cannula 3.0 07/19/16 04:00 Nasal Cannula 3.0 Laboratory Results Last 24 Hours Test 07/19/16 05:55 White Blood Count 16.20 K/uL Red Blood Count 3.85 M/uL Hemoglobin 11.5 g/dL Hematocrit 35.2 % Mean Corpuscular Volume 91.4 fL Mean Corpuscular Hemoglobin 29.9 pg Mean Corpuscular Hemoglobin Concent 32.7 g/dl RDW Standard Deviation 45.0 fL RDW Coefficient of Variation 13.5 % Platelet Count 281 K/uL Mean Platelet Volume 9.1 fL Sodium Level 141 mmol/L Potassium Level 3.1 mmol/L Chloride Level 98 mmol/L Carbon Dioxide Level 34 mmol/L Anion Gap 9.0 mmol/L Blood Urea Nitrogen 14 mg/dl Creatinine 0.85 mg/dl Est Creatinine Clear Calc Drug Dose 48.4 ml/min Estimated GFR () 79.3 Estimated GFR (Non- 68.5 BUN/Creatinine Ratio 15.9 Random Glucose 149 mg/dl Calcium Level 9.1 mg/dl Magnesium Level 1.8 mg/dl Mental Examination During interview pt is: alert and oriented, cooperative Appearance: appropriately dressed (in a hospital gown), appropriately groomed Eye contact is: good Motor behavior is: tremor Speech: normal in rate, rhythm & volume Affect: mood congruent, anxious, other (appropriate, reactive) Mood is: anxious Thought process: goal directed Thought content: reality based without delusions Suicidal thought are: denied Homicidal thoughts are: denied Hallucinations: denies auditory, denies visual Cognition: memory grossly intact, attention grossly intact, language grossly intact Intelligence estimated to be: average, consistent with level of education Insight: fair Judgement: fair Impression / Recommendations Impression 71-year-old white female with multiple medical problems and a history of depression and anxiety who is admitted with shortness of breath and a possible recurrence of lung cancer. We are consulted to address her anxiety. Although mood has improved since her psychiatric hospitalization a couple of weeks ago at [facility], anxiety continues to be an issue, and we will adjust her gabapentin and fluoxetine to target that. She does not meet criteria for inpatient psychiatric treatment at this time, and can follow up with her outpatient psychiatrist, Dr. Multani Recommendations (1) Anxiety -Patient does not think she's ever been on higher doses of fluoxetine, so will start by increasing her dose to 60 mg daily to target anxiety. We will also increase gabapentin to 200 mg 3 times a day. Agree with avoiding benzodiazepines. She does have hydroxyzine when necessary ordered. (2) Depression Increase fluoxetine as above. Reviewed option of outpatient therapy, which she is declining at this time. She is hoping to get home health nursing and reports good support from her family. Will have the liaison nurse return and get a release of information so that we can send this report to Dr. Multani for coordination of care, and ensure timely follow-up with him. Her family assists her with managing her medications by filling a pillbox, and a referral is being made for home health nursing to assist with this as well.
[2016-07-19] MEDS: SIMVASTATIN 10 MG TAB PO SCH (21:28)
[2016-07-19] MEDS: PANTOprazole SOD 40 MG TAB PO SCH (21:29)
[2016-07-19] MEDS: TRAZODONE HCL 50 MG TAB PO SCH (21:30)
[2016-07-20] VITALS (13 sets, daily range): BP systolic 144–164; BP diastolic 70–84; PULSE 74–105; TEMP 36.5–37; O2SAT 94–98
[2016-07-20] MEDS: GUAIFENESIN 200 MG TAB PO SCH ×6 (02:00→21:02)
[2016-07-20 06:50] LABS: BUN/CREATININE RATIO 22.1 (10-20); CALCIUM 9.3 mg/dl (8.5-10.1); CREATININE 0.74 mg/dl (0.60-1.20); POTASSIUM 3.2 mmol/L (3.5-5.1)
[2016-07-20] MEDS: ALBUT/IPRATROP 3MG/0.5MG NEB 3 ML VIAL INH SCH ×4 (07:12→19:37)
[2016-07-20 07:20] LABS: HEMATOCRIT 35.5 % (37-47); MEAN CELL VOLUME 92.7 fL (80-100); MEAN CORPUSCULAR HEMOGLOBIN 30.3 pg (25-34); MEAN CORPUSCULAR HGB CONC 32.7 g/dl (32-36); MEAN PLATELET VOLUME 9.5 fL (7.4-10.4); PLATELET COUNT 288 K/uL (130-400); RED BLOOD COUNT 3.83 M/uL (4.2-5.4); WHITE BLOOD COUNT 14.92 K/uL (4.8-10.8)
[2016-07-20] MEDS: DILTIAZEM HCL 300 MG CAPCR PO SCH (08:33)
[2016-07-20] MEDS: SODIUM CHLORIDE 0.65% NA SOLN 45 ML (OCEAN) NAE SCH ×2 (08:33→20:58)
[2016-07-20] MEDS: TIOTROPIUM BROMIDE 5 PUFF/90 MCG INH INH SCH (08:33)
[2016-07-20] MEDS: FUROSEMIDE 20 MG TAB PO SCH (08:33)
[2016-07-20] MEDS: DONEPEZIL HCL 5 MG TAB PO SCH (08:33)
[2016-07-20] MEDS: POTASSIUM CHLORIDE 20 MEQ TABCR PO SCH ×2 (08:34→20:59)
[2016-07-20] MEDS: GABAPENTIN 100 MG CAP PO SCH ×3 (08:34→21:00)
[2016-07-20] MEDS: MEMANTINE 5 MG TAB PO SCH (08:34)
[2016-07-20] MEDS: FLUOXETINE HCL 20 MG CAP PO SCH ×2 (08:34→08:35)
--- NOTE | 2016-07-20 09:58 | Psychiatric Progress Notes ---
Psychiatric Progress Note Date of Service Jul 20, 2016. Notes Bridget Austin is a 71-year-old female who currently lives in [place] with her , has a history of depression, anxiety, benzodiazepine overuse and withdrawal, and was admitted to the hospitalist service after she presented with worsening breathing problems. Psychiatry is consulted for anxiety, seen initially yesterday and fluoxetine and gabapentin increased, and seen for follow up today. CC: "I'm doing better today." Interval History: Patient was seen yesterday and fluoxetine and gabapentin were increased to target anxiety. Last night, nursing notes indicate that she reported visual hallucinations when she closes her eyes, and was concerned that it was due to medication adjustments. She also reported feeling paranoid the night prior. She was able to sleep last night, and is being referred to a SNF for rehabilitation. Today, she states that she is feeling better, and anxiety is decreased. In discussing her concerns over the past 2 nights, she states that 2 nights ago she felt "paranoid" that nursing staff were being "smart" with her, although after discussing this further, she thinks that she may have misinterpreted them. She thought that they were being sarcastic when they made comments that oxygen was not a medication. She states that last night, she noticed that when she closed her eyes she could see different colors and shapes. She especially noticed it when looking at a light in her room. She denies any other instances of visual or auditory hallucinations. She states that her mood is "okay," and continues to deny thoughts of harming herself or anyone else. She denies panic attacks. She is hopeful that she will be accepted to a local senior care facility, and is planning to follow up with the plumbing drafter and sleeve wheel maker oncologist as an outpatient. Well nourished, well developed WF appearing stated age. Casually dressed and adequately groomed. Pleasant, calm and cooperative. Seated in NAD, with good eye contact and no abnormal movements. Speech is normal rate, volume, and tone. Mood is "better," and affect is stable and congruent. Thoughts are linear, logical and goal directed. The patient denied suicidal and homicidal ideation. No paranoia, delusions, or hallucinations, and did not appear to be responding to internal stimuli. Cognition was grossly intact. Alert and oriented to 10 out of 10. Intelligence is consistent with level of education. Insight and and judgment are fair. Diagnosis: Anxiety disorder not otherwise specified, with symptoms of generalized anxiety and panic disorder. Major depressive disorder, recurrent, moderate. Recommendations: 1. Continue higher dose of fluoxetine 60 mg daily and gabapentin 200 mg 3 times a day to target mood and anxiety. Patient's reports of "visual hallucinations" are physiologic in nature and not psychotic, and her "paranoia" about staff is in line with her anxiety, and again not psychotic in nature. She will follow up with Dr. Multani as an outpatient, and we will coordinate that with him prior to discharge.
[2016-07-20] MEDS: ENOXAPARIN 40 MG/0.4 ML SYR SC SCH (10:13)
[2016-07-20] MEDS: LEVOFLOXACIN 750 MG TAB PO SCH (10:13)
--- NOTE | 2016-07-20 13:29 | Hematology/Oncology Prog Note ---
Hematology/Onc Progress Note Date of Service Jul 20, 2016. Diagnoses History of lung cancer COPD New lung nodule Medications Medications Administered Medications (Trade) Dose Ordered Sig/Mee Route Start Time Stop Time Status Last Admin Dose Admin Sodium Chloride (Nss 1000ml) 250 ml @ 999 mls/hr Q16M STAT IV 07/17/16 04:54 07/17/16 05:09 DC 07/17/16 05:16 999 MLS/HR Methylprednisolone Sodium Succinate (Solu-Medrol IV) 125 mg NOW STAT IV 07/17/16 04:54 07/17/16 04:56 DC 07/17/16 05:15 125 MG Albuterol/ Ipratropium (Duoneb) 3 ml NOW STAT INH 07/17/16 04:54 07/17/16 04:56 DC 07/17/16 05:15 3 ML Piperacillin Sod/ Tazobactam Sod (Zosyn Iv) 4.5 gm NOW STAT IV 07/17/16 05:27 07/17/16 05:28 DC 07/17/16 05:47 4.5 GM Enoxaparin Sodium 40 mg 40 mg Q24H SC 07/17/16 10:00 08/16/16 09:59 07/20/16 10:13 40 MG Sodium Chloride (Nss 1000ml) 1,000 ml @ 75 mls/hr [id number] IV 07/17/16 09:00 07/18/16 08:38 DC 07/17/16 20:48 75 MLS/HR Acetaminophen (Tylenol Tab) 650 mg Q4H PRN PO 07/17/16 06:30 08/16/16 06:29 07/18/16 08:27 650 MG Donepezil HCl (Aricept Tab) 5 mg DAILY PO 07/17/16 09:00 08/16/16 08:59 07/20/16 08:33 5 MG Fluoxetine HCl (Prozac Cap) 10 mg QAM PO 07/17/16 09:00 07/19/16 12:28 DC 07/19/16 08:11 10 MG Fluoxetine HCl (Prozac Cap) 40 mg QAM PO 07/17/16 09:00 08/16/16 08:59 07/20/16 08:34 40 MG Furosemide (Lasix Tab) 20 mg Q2D PO 07/18/16 08:00 08/17/16 07:59 07/20/16 08:33 20 MG Gabapentin (Neurontin Cap) 100 mg TID PO 07/17/16 09:00 07/19/16 12:29 DC 07/19/16 08:11 100 MG Memantine (Namenda Tab) 5 mg DAILY PO 07/17/16 09:00 08/16/16 08:59 07/20/16 08:34 5 MG Pantoprazole Sodium (Protonix Tab) 40 mg HS PO 07/17/16 21:00 08/16/16 20:59 07/19/16 21:29 40 MG Simvastatin (Zocor Tab) 10 mg HS PO 07/17/16 21:00 08/16/16 20:59 07/19/16 21:28 10 MG Sodium Chloride (Nolan Nasal [place]) 2 sprays BID PAULETTE 07/17/16 09:00 08/16/16 08:59 07/20/16 08:33 2 SPRAYS Trazodone HCl (Desyrel Tab) 50 mg HS PO 07/17/16 21:00 08/16/16 20:59 07/19/16 21:30 50 MG Diltiazem HCl (Cardizem Cd Cap) 300 mg DAILY PO 07/17/16 10:00 08/16/16 09:59 07/20/16 08:33 300 MG Albuterol/ Ipratropium 3 ml 3 ml QIDR INH 07/17/16 08:00 08/16/16 07:59 07/20/16 11:35 3 ML Methylprednisolone Sodium Succinate 60 mg/Syringe 0.96 ml @ 1.5 mls/min Q8H IV 07/17/16 14:00 07/19/16 08:09 DC 07/19/16 05:53 1.5 MLS/MIN Cefepime HCl 2000 mg/Dextrose 112.5 ml @ 200 mls/hr Q8H IV 07/17/16 10:00 07/18/16 08:48 DC 07/18/16 01:33 200 MLS/HR Vancomycin HCl 1000 mg/Sodium Chloride 270 ml @ 125 mls/hr Q14H IV 07/18/16 02:00 07/18/16 08:48 DC 07/18/16 02:28 125 MLS/HR Levofloxacin/Prmx (Levaquin / D5W/ Premixed D5W) 150 ml @ 100 mls/hr Q24H IV 07/17/16 09:00 07/19/16 08:41 DC 07/19/16 08:10 100 MLS/HR Guaifenesin (Organidin Nr Tab) 200 mg Q4H PO 07/17/16 10:00 08/16/16 09:59 07/20/16 08:34 200 MG Tiotropium [place] 1 puff 1 puff QAM INH 07/17/16 09:00 08/16/16 08:59 07/20/16 08:33 1 PUFF Vancomycin HCl/ Sodium Chloride (Vancomycin Inj/ Nss 500ml) 535 ml @ 200 mls/hr TODAY@1100 IV 07/17/16 11:00 07/17/16 13:42 DC 07/17/16 12:40 200 MLS/HR Oxycodone/ Acetaminophen (Percocet 5-325mg Tab) 1 tab Q4H PRN PO 07/17/16 13:15 07/31/16 13:14 07/18/16 02:28 1 TAB Heparin Sodium (Porcine) 5 ml 5 ml PRN PRN IV 07/18/16 00:30 08/17/16 00:29 07/20/16 06:07 5 ML Potassium Chloride/Prmx (Kcl 10 Meq / Wtr/Premixed Water) 100 ml @ 100 mls/hr Q1H IV 07/18/16 09:00 07/18/16 12:59 DC 07/18/16 13:32 100 MLS/HR Potassium Chloride (Klor-Con Tab) 20 meq ONE ONCE PO 07/18/16 18:00 07/18/16 18:01 DC 07/18/16 17:37 20 MEQ Diphenhydramine HCl (Benadryl Cap) 25 mg HS PRN PO 07/18/16 22:00 07/18/16 23:15 DC 07/18/16 22:02 25 MG Hydroxyzine HCl (Vistaril Tab) 10 mg HS PRN PO 07/18/16 22:00 08/17/16 21:59 07/18/16 22:05 10 MG Potassium Chloride (Klor-Con Tab) 20 meq BID PO 07/19/16 09:00 08/18/16 08:59 07/20/16 08:34 20 MEQ Levofloxacin (Levaquin Tab) 750 mg DAILY@11 PO 07/20/16 11:00 07/23/16 11:01 07/20/16 10:13 750 MG Prednisone (PredniSONE TAB) 20 mg DAILY PO 07/20/16 09:00 07/21/16 09:01 07/20/16 08:34 20 MG Gabapentin (Neurontin Cap) 200 mg TID PO 07/19/16 14:00 08/18/16 13:59 07/20/16 08:34 200 MG Fluoxetine HCl (Prozac Cap) 20 mg QAM PO 07/20/16 09:00 08/19/16 08:59 07/20/16 08:35 20 MG Subjective Ms. Austin is feeling better today. Her mood is somewhat improved. She is working with PT and will likely go home with home PT, though specific arrangements for this are still ongoing. She denies any other new complaints. Review of Systems: Constitutional: No chills, No fever Eyes: No worsening of vision ENT: No unusual epistaxis Respiratory: + shortness of breath (improving), No hemoptysis Cardiovascular: No chest pain Abdomen: No nausea, No vomiting Musculoskeletal: No joint pain, No muscle pain Female : No dysuria Neurologic: No numbness/tingling, No weakness Psychiatric: + depression symptoms Heme: No abnormal bleeding/bruising, No swollen lymph nodes Skin: No rash Vital Signs Vital Signs Past 12 Hours Date Time Temp Pulse Resp B/P Pulse Ox O2 Delivery O2 Flow Rate FiO2 07/20/16 12:00 Nasal Cannula 3.0 07/20/16 11:35 78 16 98 Nasal Cannula 3.5 07/20/16 11:33 36.8 95 18 152/84 97 07/20/16 11:23 95 97 07/20/16 07:45 Nasal Cannula 3.0 07/20/16 07:22 36.9 91 18 154/79 98 07/20/16 07:21 78 16 98 Nasal Cannula 3.5 07/20/16 04:06 36.5 105 20 145/73 96 Nasal Cannula 2.0 07/20/16 04:00 Nasal Cannula 3.0 Physical Exam Constitutional: General Apperance: heathly-appearing Level of Distress: NAD Psychiatric: Mental Status: active & alert Orientation: oriented except where noted Lungs: Auscuitation: expiratory wheezing (scattered) Cardiovascular: Heart Auscultation: RRR, no murmurs Abdomen: Inspection & Palpation: soft, no tenderness, guarding & rebound Extremities: no edema Laboratory Last 24 Hours Test 07/20/16 05:15 White Blood Count 14.92 K/uL Red Blood Count 3.83 M/uL Hemoglobin 11.6 g/dL Hematocrit 35.5 % Mean Corpuscular Volume 92.7 fL Mean Corpuscular Hemoglobin 30.3 pg Mean Corpuscular Hemoglobin Concent 32.7 g/dl RDW Standard Deviation 47.1 fL RDW Coefficient of Variation 13.9 % Platelet Count 288 K/uL Mean Platelet Volume 9.5 fL Sodium Level 143 mmol/L Potassium Level 3.2 mmol/L Chloride Level 102 mmol/L Carbon Dioxide Level 36 mmol/L Anion Gap 5.0 mmol/L Blood Urea Nitrogen 16 mg/dl Creatinine 0.74 mg/dl Est Creatinine Clear Calc Drug Dose 55.0 ml/min Estimated GFR () 93.8 Estimated GFR (Non- 80.9 BUN/Creatinine Ratio 22.1 Random Glucose 139 mg/dl Calcium Level 9.3 mg/dl Assessment & Plan Ms. Austin is doing better. She refused bronchoscopy at this time, preferring to let her acute issues settle down and to reconsider it as an outpatient. I requested that my staff schedule her for a visit, along with a PET/CT. They will be in touch with her to schedule these appointments. I will sign off for now. If there are any additional questions or concerns, please feel free to contact me at any time.
--- NOTE | 2016-07-20 14:23 | Progress Note ---
Subjective Date of Service: Jul 20, 2016. Subjective Pt evaluation today including: conversation w/ patient, physical exam, chart review, lab review, review of studies, review of inpatient medication list Reports improvement in anxiety No worsening sob Tolerating changes in psych meds No acute events overnight Problem List Medical Problems: (1) Cough with hemoptysis Status: Acute (2) New left bundle branch block (LBBB) Status: Acute (3) Pneumonia Status: Acute (4) Pre-syncope Status: Acute (5) SOB (shortness of breath) Status: Acute Review of Systems Constitutional: No chills, No fever Respiratory: + shortness of breath, No cough, No sputum, No wheezing Cardiac: No chest pain, No orthopnea Abdomen: No diarrhea, No nausea, No pain, No vomiting Musculoskeletal: No joint pain, No muscle pain Female : No dysuria, No urinary frequency Psychiatric: + anxiety, + depression symptoms Objective Vital Signs Date Time Temp Pulse Resp B/P Pulse Ox O2 Delivery O2 Flow Rate FiO2 07/20/16 12:00 Nasal Cannula 3.0 07/20/16 11:35 78 16 98 Nasal Cannula 3.5 07/20/16 11:33 36.8 95 18 152/84 97 07/20/16 11:23 95 97 07/20/16 07:45 Nasal Cannula 3.0 07/20/16 07:22 36.9 91 18 154/79 98 07/20/16 07:21 78 16 98 Nasal Cannula 3.5 07/20/16 04:06 36.5 105 20 145/73 96 Nasal Cannula 2.0 07/20/16 04:00 Nasal Cannula 3.0 07/20/16 00:00 Nasal Cannula 3.0 07/19/16 23:40 36.7 101 20 182/75 96 Nasal Cannula 3.0 07/19/16 20:00 98 Nasal Cannula 3.0 07/19/16 19:55 96 16 98 Nasal Cannula 3.5 07/19/16 16:00 98 Nasal Cannula 3.0 07/19/16 15:30 81 16 98 Nasal Cannula 3.5 07/19/16 15:29 36.7 95 18 149/77 95 Room Air Physical Exam General Appearance: WD/WN, + mild distress Neck: supple, no adenopathy Respiratory/Chest: lungs clear, + decreased breath sounds Cardiovascular: no edema, no gallop Abdomen: non tender, soft Neurologic/Psychiatric: alert, oriented x 3 Laboratory Results Last 24 Hours Test 07/20/16 05:15 White Blood Count 14.92 K/uL Red Blood Count 3.83 M/uL Hemoglobin 11.6 g/dL Hematocrit 35.5 % Mean Corpuscular Volume 92.7 fL Mean Corpuscular Hemoglobin 30.3 pg Mean Corpuscular Hemoglobin Concent 32.7 g/dl RDW Standard Deviation 47.1 fL RDW Coefficient of Variation 13.9 % Platelet Count 288 K/uL Mean Platelet Volume 9.5 fL Sodium Level 143 mmol/L Potassium Level 3.2 mmol/L Chloride Level 102 mmol/L Carbon Dioxide Level 36 mmol/L Anion Gap 5.0 mmol/L Blood Urea Nitrogen 16 mg/dl Creatinine 0.74 mg/dl Est Creatinine Clear Calc Drug Dose 55.0 ml/min Estimated GFR () 93.8 Estimated GFR (Non- 80.9 BUN/Creatinine Ratio 22.1 Random Glucose 139 mg/dl Calcium Level 9.3 mg/dl Assessment and Plan 71-year-old female with a history of COPD with continuous supplemental O2 use at home, anxiety, dementia, pulmonary hypertension, non-small cell lung cancer s /p chemoradiation (2010), radiation bronchiectasis, hypertension, aortic stenosis s/p aortic valve replacement, and dual chamber pacemaker who presents to the ED on 07/17 with shortness of breath. CXR shows progressive right perihilar lobular density, possible lymphadenopathy versus recurrent mass. Chest CT shows development of new lymph nodes and nodules as well as progressive lymphadenopathy consistent with metastatic disease. Also shows patchy groundglass airspace opacity left upper lobe, post radiation change versus infectious pneumonitis. Small patchy air space opacities in left lower lobe may represent infectious process. Small right pleural effusion, which is increased in size compared to 08/23/15 study. Patient was recently admitted to [facility] in the end of June due to suicidal ideation and benzodiazepine abuse. COPD exacerbation, possible HAP, new pulmonary nodules and lymphadenopathy -Admit to [facility] for cardiac monitoring. Patient remained in sinus rhythm with heart rate in the 80s to 90s overnight, no episodes of A. fib 4/5 -D/C Solu-Medrol. Pt received 1 dose of 60 mg IV this morning. Cont prednisone at this time, taper on DC -DuoNebs QIDR and q2h prn SOB/wheezing -Continue Spiriva 2 puffs inh qd -O2 by protocol -Pt. follows with Dr. Morales. Pulmonology consulted, appreciate recs: Discussed with patient and , they do not wish to pursue bronchoscopy at this point. Continue current treatment. -Oncology consulted, appreciate recs: Consider PET/CT scan. Iron studies suggest anemia of chronic inflammation. -Pt unable to tolerate MRI -MRSA negative in nares, D/C vancomycin. -Patient afebrile without leukocytosis. Symptoms more likely related to progression of lung cancer. D/C cefepime -D/C IV Levaquin. Pt had already received dose this morning. Switch to PO Levaquin 750 mg tomorrow. -Sputum cultures if obtainable -Blood cultures NGTD x2 -Influenza negative Hypokalemia--improving -Potassium 2.9 on 07/18, was 3.8 on arrival -KCl 10 mEq IV x 4 given, then 20 mEq PO -Potassium 3.1 on 07/19 -KCl 20 mEq PO BID -Continue to monitor Dysphagia -Speech therapy consulted. Patient cleared for slippery regular diet. Tolerating well Dementia/memory loss -Continue donepezil 5 mg PO qd and Namenda 5 mg PO qd Anemia--stable -Vitamin B12 elevated, folate within normal limits -Iron, ferritin and transferrin saturation% all WNL -TIBC slightly low at 240, transferrin slightly low at 194 -Hgb stable at 11.5 on 07/19 GERD -Continue Protonix 40 mg PO qd Anxiety--worsening. Recently admitted to the BHU at [facility] with benzodiazepine abuse/withdrawal and suicidal ideation. Per [facility] records, patient has been feeling worsening anxiety and depression due to fights with her and increasing difficulty taking care of herself -Continue gabapentin 100 mg PO TID -Avoid benzos and other addictive agents -Patient appears worse today. Required Benadryl and Vistaril to get to sleep last night. More shaky today. No suicidal ideation -Consult psychiatry, increase in paxil and gabapentin, tolerating well HTN--stable -Continue diltiazem 300 mg PO qd HLD--stable -Continue simvastatin 10 mg PO qd DVT prophylaxis -Enoxaparin 40 mg SC q24h -SCDs Code Status -Level V, DO NOT RESUSCITATE Dispo -Patient from home. Lives with -States she cannot go home because she cannot take care of herself and her can no longer help her -PT/OT evaluate and treat -Referral placed to Home Nursing Agency
[2016-07-20] MEDS ORDERED: NURSING VERBAL MED ORDER ONE (18:30)
[2016-07-20] MEDS ORDERED: hydrOXYzine HCL 10 MG TAB PO ONE (18:45)
[2016-07-20] MEDS: TRAZODONE HCL 50 MG TAB PO SCH (20:59)
[2016-07-20] MEDS: PANTOprazole SOD 40 MG TAB PO SCH (21:00)
[2016-07-20] MEDS: SIMVASTATIN 10 MG TAB PO SCH (21:01)
[2016-07-20] MEDS: hydrOXYzine HCL 10 MG TAB PO PRN (23:24)
[2016-07-21] VITALS (11 sets, daily range): BP systolic 129–160; BP diastolic 76–90; PULSE 80–99; TEMP 36.5–37.1; O2SAT 94–98
[2016-07-21] MEDS: GUAIFENESIN 200 MG TAB PO SCH ×7 (01:58→21:09)
[2016-07-21 06:20] LABS: HEMATOCRIT 37.6 % (37-47); MEAN CELL VOLUME 91.5 fL (80-100); MEAN CORPUSCULAR HEMOGLOBIN 29.9 pg (25-34); MEAN CORPUSCULAR HGB CONC 32.7 g/dl (32-36); PLATELET COUNT 255 K/uL (130-400); RED BLOOD COUNT 4.11 M/uL (4.2-5.4); WHITE BLOOD COUNT 14.22 K/uL (4.8-10.8)
[2016-07-21 06:57] LABS: BUN/CREATININE RATIO 18.5 (10-20); CREATININE 0.74 mg/dl (0.60-1.20); POTASSIUM 3.1 mmol/L (3.5-5.1)
[2016-07-21] MEDS: ALBUT/IPRATROP 3MG/0.5MG NEB 3 ML VIAL INH SCH ×4 (07:24→19:30)
[2016-07-21] MEDS: FLUOXETINE HCL 20 MG CAP PO SCH ×2 (08:32→09:00)
[2016-07-21] MEDS: DONEPEZIL HCL 5 MG TAB PO SCH (08:32)
[2016-07-21] MEDS: DILTIAZEM HCL 300 MG CAPCR PO SCH (08:33)
[2016-07-21] MEDS: TIOTROPIUM BROMIDE 5 PUFF/90 MCG INH INH SCH (08:33)
[2016-07-21] MEDS: MEMANTINE 5 MG TAB PO SCH (08:34)
[2016-07-21] MEDS: POTASSIUM CHLORIDE 20 MEQ TABCR PO SCH ×2 (08:34→21:08)
[2016-07-21] MEDS: GABAPENTIN 100 MG CAP PO SCH ×3 (08:35→21:05)
[2016-07-21] MEDS: SODIUM CHLORIDE 0.65% NA SOLN 45 ML (OCEAN) NAE SCH ×2 (08:36→21:05)
--- NOTE | 2016-07-21 09:48 | Hospitalist Progress Note ---
Hospitalist Progress Note Date of Service Jul 21, 2016. (Azul De Leon ., DIONISIOC) Subjective Pt evaluation today including: conversation w/ patient, physical exam, chart review, lab review, review of inpatient medication list Pain: None PO Intake: Tolerating PO diet Voiding: no voiding problems Patient states that she is not feeling well. She think that her anxiety is worse and she can't fall asleep. She had a very brief episode of sharp chest pain yesterday evening that only lasted a few seconds and then resolved on its own. She denies any other symptoms associated with the chest pain. She notes that she had an episode of lightheadedness when she got up to go to the bathroom yesterday but denies any vertigo or falls. The patient also states that she became nauseous yesterday after taking several of her scheduled medications at once. She denies any vomiting. The patient denies any pain in her LLE today and denies any numbness or tingling, but states that her leg feels cold. She still complains of weakness and fatigue. The patient denies fevers, chills, sweats, palpitations, claudication, cough, wheezing, shortness of breath, vomiting, abdominal pain, dysuria, hematuria, urinary retention, paralysis, numbness and tingling. Additional Comments: See HPI for pertinent positives and negatives. All other systems reviewed and negative. (Azul De Leon ., PA-C) Objective Vital Signs Date Time Temp Pulse Resp B/P Pulse Ox O2 Delivery O2 Flow Rate FiO2 07/21/16 07:53 36.7 90 16 158/90 97 Nasal Cannula 3.5 07/21/16 07:45 Nasal Cannula 3.0 Humidified Oxygen 07/21/16 07:24 86 16 96 Nasal Cannula 3.5 07/21/16 04:00 Nasal Cannula 3.0 07/21/16 04:00 37.1 90 20 160/84 98 4.0 07/21/16 00:00 Nasal Cannula 3.0 07/20/16 22:39 36.7 102 18 164/70 94 Nasal Cannula 3.0 07/20/16 20:36 37.0 94 18 152/76 96 Nasal Cannula 3.0 07/20/16 20:00 98 Nasal Cannula 3.0 07/20/16 19:37 86 18 96 Nasal Cannula 3.5 07/20/16 16:00 98 Nasal Cannula 3.0 07/20/16 15:25 74 16 98 Nasal Cannula 3.5 07/20/16 14:54 37.0 86 18 144/79 97 Nasal Cannula 3.0 07/20/16 12:00 Nasal Cannula 3.0 07/20/16 11:35 78 16 98 Nasal Cannula 3.5 07/20/16 11:33 36.8 95 18 152/84 97 07/20/16 11:23 95 97 (Azul De Leon ., PUMA-C) Physical Exam General Appearance: WD/WN, no apparent distress Eyes: normal inspection, PERRL, EOMI ENT: normal ENT inspection, hearing grossly normal, pharynx normal Neck: supple, no JVD, trachea midline Respiratory/Chest: normal breath sounds, no respiratory distress, + wheezing Cardiovascular: regular rate, rhythm, no gallop, no murmur Abdomen: normal bowel sounds, non tender, soft Extremities: non-tender, normal inspection, no pedal edema Neurologic/Psychiatric: alert, oriented x 3, + pertinent finding (anxious, somewhat paranoid, not as shaky) Skin: normal color, warm/dry, no rash (Azul De Leon ., PUMA-C) Laboratory Results Last 24 Hours Test 07/21/16 06:05 White Blood Count 14.22 K/uL Red Blood Count 4.11 M/uL Hemoglobin 12.3 g/dL Hematocrit 37.6 % Mean Corpuscular Volume 91.5 fL Mean Corpuscular Hemoglobin 29.9 pg Mean Corpuscular Hemoglobin Concent 32.7 g/dl RDW Standard Deviation 45.6 fL RDW Coefficient of Variation 13.6 % Platelet Count 255 K/uL Mean Platelet Volume 9.0 fL Sodium Level 141 mmol/L Potassium Level 3.1 mmol/L Chloride Level 99 mmol/L Carbon Dioxide Level 36 mmol/L Anion Gap 6.0 mmol/L Blood Urea Nitrogen 14 mg/dl Creatinine 0.74 mg/dl Est Creatinine Clear Calc Drug Dose 54.4 ml/min Estimated GFR () 93.8 Estimated GFR (Non- 80.9 BUN/Creatinine Ratio 18.5 Random Glucose 100 mg/dl Calcium Level 9.0 mg/dl (Azul De Leon ., PA-C) Assessment and Plan 71-year-old female with a history of COPD with continuous supplemental O2 use at home, anxiety, dementia, pulmonary hypertension, non-small cell lung cancer s /p chemoradiation (2010), radiation bronchiectasis, hypertension, aortic stenosis s/p aortic valve replacement, and dual chamber pacemaker who presents to the ED on 07/17 with shortness of breath. CXR shows progressive right perihilar lobular density, possible lymphadenopathy versus recurrent mass. Chest CT shows development of new lymph nodes and nodules as well as progressive lymphadenopathy consistent with metastatic disease. Also shows patchy groundglass airspace opacity left upper lobe, post radiation change versus infectious pneumonitis. Small patchy air space opacities in left lower lobe may represent infectious process. Small right pleural effusion, which is increased in size compared to 08/23/15 study. Patient was recently admitted to [facility] in the end of June due to suicidal ideation and benzodiazepine abuse. COPD exacerbation, possible HAP, new pulmonary nodules and lymphadenopathy-- improving -Admit to tele for cardiac monitoring. Patient remained in sinus rhythm with heart rate in the 90s-100s overnight, no episodes of A. fib 07/21. Transfer to med/surg on 07/21 -Continue Prednisone taper. Prednisone 20 mg PO today -DuoNebs QIDR and q2h prn SOB/wheezing -Continue Spiriva 2 puffs inh qd -O2 by protocol -Pt. follows with Dr. Morales. Pulmonology consulted, appreciate recs: Discussed with patient and , they do not wish to pursue bronchoscopy at this point. Continue current treatment. -Oncology consulted, appreciate recs: Will schedule pt for outpt visit and PET/ CT scan. Signing off. -Pt unable to tolerate MRI -MRSA negative in nares, D/C vancomycin. -Continue Levaquin 750 mg PO qd. Day #5 -Sputum cultures if obtainable -Blood cultures NGTD x2 -Influenza negative -Leukocytosis improving, likely secondary to steroid use. WBC 14.22 on 07/21 Hypokalemia--stable -Potassium 2.9 on 07/18, was 3.8 on arrival -KCl 10 mEq IV x 4 given, then 20 mEq PO -Potassium 3.1 on 07/21 -Increase KCl to 40 mEq PO BID -Continue to monitor Dysphagia -Speech therapy consulted. Patient cleared for slippery regular diet. Tolerating well Dementia/memory loss -Continue donepezil 5 mg PO qd and Namenda 5 mg PO qd Anemia--stable -Vitamin B12 elevated, folate within normal limits -Iron, ferritin and transferrin saturation% all WNL -TIBC slightly low at 240, transferrin slightly low at 194 -Hgb stable at 12.3 on 07/21 GERD -Continue Protonix 40 mg PO qd Anxiety/depression--worsening. Recently admitted to the BHU at [facility] with benzodiazepine abuse/withdrawal and suicidal ideation. Per [facility] records, patient has been feeling worsening anxiety and depression due to fights with her and increasing difficulty taking care of herself -Continue gabapentin 200 mg PO TID per psych recs -Avoid benzos and other addictive agents -Consult psychiatry, appreciate recs: continue fluoxetine 60 mg PO qd and gabapentin 200 mg PO TID. HTN--stable -Continue diltiazem 300 mg PO qd HLD--stable -Continue simvastatin 10 mg PO qd DVT prophylaxis -Enoxaparin 40 mg SC q24h -SCDs Code Status -Level V, DO NOT RESUSCITATE Dispo -Patient from home. Lives with -States she cannot go home because she cannot take care of herself and her can no longer help her -PT/OT evaluate and treat, recommend acute rehab -Pt requested [facility], however they will require a Level II assessment due to recent psych admission -Referral placed to [facility] as well This chart was completed in part utilizing [employer] Speech Voice Recognition software. Attempts were made to minimize the grammatical errors, random word insertions, pronoun errors and incomplete sentences. Any formal questions or concerns about the content, text or information contained within the body of this dictation should be directly addressed to the provider for clarification. (Azul De Leon ., PA-C) I agree with PA assessment and plan and have seen and examined the pt myself Pt resting comfortably in bed States anxiety uncontrolled at times No suicidal or homicidal ideations Tolerating increase in paxil and neurontin Awaiting discharge to SNF (Sharath Logan D.O.)
[2016-07-21] MEDS: ENOXAPARIN 40 MG/0.4 ML SYR SC SCH (10:29)
[2016-07-21] MEDS: LEVOFLOXACIN 750 MG TAB PO SCH (10:30)
--- NOTE | 2016-07-21 13:53 | PROGRESS NOTE ---
DATE: 07/18/2016 DATE: 07/18/2016. PROBLEM LIST: Includes chronic obstructive pulmonary disease, pneumonia, nonsmall cell lung CA, new right peritracheal mass felt to be most likely metastatic disease. SUBJECTIVE: The patient reports that she is actually feeling well with her breathing today. She states that she is not really having any shortness of breath, no cough, no wheeze. No increased chest heaviness or tightness. She states that she is feeling a little bit anxious but medicines are making her feel better. At times she is feeling a little bit more groggy or tired. She is not having any other difficulties or problems at this time. Apparently, the patient is going to [facility] at the beginning of next week for placement. No other concerns or problems at this time. OBJECTIVE: GENERAL: The patient is a 71-year-old female in no acute distress. She is alert and oriented x3. Mood is good. Affect is good. VITAL SIGNS: Temp 36.7, pulse 90, respirations 16, blood pressure is 158/90, pulse ox 97% on 3.5 liters. HEAD, EYES, EARS, NOSE, AND THROAT: Normocephalic, atraumatic. Pupils equal, round and reactive to light and accommodation. Extraocular movements are intact. Mondamin moist gingival and buccal mucosa. NECK: Supple. No mass, no adenopathy, no bruit. CHEST: She has diminished breath sounds bilaterally, but overall breath sounds pretty clear. I do not appreciate any wheeze, rales or rhonchi at this time. CARDIOVASCULAR: Regular rate and rhythm. No murmurs, gallops or rubs. ABDOMEN: Bowel sounds are present. Abdomen soft, nontender. No guarding, rigidity or organomegaly. EXTREMITIES: No erythema or edema. LABORATORY DATA: White count 14,000, H\T\H 12.3 and 37.6, sputum culture showing light normal pepper. No new imaging data. IMPRESSION: This is a 71-year-old female with known history of nonsmall cell lung cancer who was admitted with pneumonia/chronic obstructive pulmonary disease exacerbation. At this time, patient is doing well, breathing is improved. If it has not already been done she can be transitioned over to prednisone starting at 40 mg daily and then tapering by 5 mg every 2 days. She is to finish a 10-day course of antibiotic as well, otherwise continue current regimen as it is. In regards to the new perihilar mass, the patient does not want any type of imaging or intervention done at this time according to previous notations. The patient reports that she is set for discharge to [facility]. We can follow the patient as an outpatient in the clinic. This appointment can be made at a later date. Would like to see her within about 2 weeks of discharge. Case reviewed and plan agreed with. KALEB
[2016-07-21] MEDS: SIMVASTATIN 10 MG TAB PO SCH (21:06)
[2016-07-21] MEDS: PANTOprazole SOD 40 MG TAB PO SCH (21:06)
[2016-07-21] MEDS: TRAZODONE HCL 50 MG TAB PO SCH (21:07)
[2016-07-22 00:05] VITALS: O2SAT 94
[2016-07-22] MEDS: GUAIFENESIN 200 MG TAB PO SCH ×6 (02:00→21:30)
[2016-07-22 05:53] LABS: HEMATOCRIT 38.6 % (37-47); MEAN CELL VOLUME 93.2 fL (80-100); MEAN CORPUSCULAR HEMOGLOBIN 31.2 pg (25-34); MEAN CORPUSCULAR HGB CONC 33.4 g/dl (32-36); MEAN PLATELET VOLUME 9.1 fL (7.4-10.4); PLATELET COUNT 232 K/uL (130-400); RED BLOOD COUNT 4.14 M/uL (4.2-5.4); WHITE BLOOD COUNT 14.45 K/uL (4.8-10.8)
[2016-07-22 06:46] LABS: BUN/CREATININE RATIO 25.8 (10-20); CALCIUM 9.4 mg/dl (8.5-10.1); CREATININE 0.73 mg/dl (0.60-1.20); POTASSIUM 4.2 mmol/L (3.5-5.1)
[2016-07-22 07:28] VITALS: PULSE 88; O2SAT 97
[2016-07-22] MEDS: ALBUT/IPRATROP 3MG/0.5MG NEB 3 ML VIAL INH SCH (07:28)
[2016-07-22 07:57] VITALS: BP 151/76; PULSE 84; TEMP 36.9; O2SAT 96
[2016-07-22] MEDS: POTASSIUM CHLORIDE 20 MEQ TABCR PO SCH ×2 (08:20→21:31)
[2016-07-22] MEDS: FLUOXETINE HCL 20 MG CAP PO SCH ×2 (08:21→10:38)
[2016-07-22] MEDS: DILTIAZEM HCL 300 MG CAPCR PO SCH (08:21)
[2016-07-22] MEDS: MEMANTINE 5 MG TAB PO SCH (08:21)
[2016-07-22] MEDS: DONEPEZIL HCL 5 MG TAB PO SCH (08:21)
[2016-07-22] MEDS: FUROSEMIDE 20 MG TAB PO SCH (08:22)
[2016-07-22] MEDS: GABAPENTIN 100 MG CAP PO SCH ×3 (08:23→21:31)
[2016-07-22] MEDS: FLUCONAZOLE 100 MG TAB PO SCH (08:27)
[2016-07-22] MEDS: SODIUM CHLORIDE 0.65% NA SOLN 45 ML (OCEAN) NAE SCH ×2 (08:28→21:30)
[2016-07-22] MEDS ORDERED: COUGH DROP (SUGAR FREE) LOZ 24 LOZ/1 BOX PO PRN (09:30)
--- NOTE | 2016-07-22 09:36 | Hospitalist Progress Note ---
Hospitalist Progress Note Date of Service Jul 22, 2016. (Azul De Leon ., DIONISIOC) Subjective Pt evaluation today including: conversation w/ patient, physical exam, chart review, lab review, review of inpatient medication list Pain: None PO Intake: Tolerating PO diet Voiding: no voiding problems Patient reports feeling better. She states that she is able to sleep last night and states that her anxiety has improved. The patient does complain of a sore throat. She denies any pain, numbness or tingling in her left lower extremity. The patient denies fevers, chills, sweats, chest pain, palpitations , claudication, cough, wheezing, shortness of breath, nausea, vomiting, abdominal pain, dysuria, hematuria, urinary retention, paralysis, weakness, numbness and tingling. Additional Comments: See HPI for pertinent positives and negatives. All other systems reviewed and negative. (Azul De Leon ., PUMA-C) Objective Vital Signs Date Time Temp Pulse Resp B/P Pulse Ox O2 Delivery O2 Flow Rate FiO2 07/22/16 07:57 36.9 84 18 151/76 96 Nasal Cannula 3.5 07/22/16 07:28 88 18 97 Nasal Cannula 3.0 07/22/16 00:05 94 Nasal Cannula 3.0 07/21/16 23:20 36.8 99 20 129/77 98 Nasal Cannula 3.0 07/21/16 20:05 94 Nasal Cannula 3.0 07/21/16 19:49 36.8 99 20 152/76 94 Nasal Cannula 3.0 07/21/16 19:30 80 16 97 Nasal Cannula 3.5 07/21/16 16:00 Nasal Cannula 3.0 Humidified Oxygen 07/21/16 15:48 36.8 88 20 149/79 97 07/21/16 15:41 83 16 97 Nasal Cannula 3.5 07/21/16 12:00 36.5 98 22 142/88 97 Nasal Cannula 3.0 Humidified Oxygen 07/21/16 12:00 Nasal Cannula 3.0 Humidified Oxygen 07/21/16 11:25 83 16 97 Nasal Cannula 3.5 (Azul De Leon ., PUMA-C) Physical Exam General Appearance: WD/WN, no apparent distress Eyes: normal inspection, PERRL, EOMI ENT: normal ENT inspection, hearing grossly normal, pharynx normal (no signs of oral candidiasis) Neck: supple, no JVD, trachea midline Respiratory/Chest: normal breath sounds, no respiratory distress, + wheezing Cardiovascular: regular rate, rhythm, no gallop, no murmur Abdomen: normal bowel sounds, non tender, soft Extremities: non-tender, normal inspection, no pedal edema Neurologic/Psychiatric: alert, normal mood/affect (patient appears significantly less anxious today, no tremors or shaking), oriented x 3 Skin: normal color, warm/dry, no rash (Azul De Leon ., PA-C) Laboratory Results Last 24 Hours Test 07/22/16 05:35 White Blood Count 14.45 K/uL Red Blood Count 4.14 M/uL Hemoglobin 12.9 g/dL Hematocrit 38.6 % Mean Corpuscular Volume 93.2 fL Mean Corpuscular Hemoglobin 31.2 pg Mean Corpuscular Hemoglobin Concent 33.4 g/dl RDW Standard Deviation 47.2 fL RDW Coefficient of Variation 13.7 % Platelet Count 232 K/uL Mean Platelet Volume 9.1 fL Sodium Level 140 mmol/L Potassium Level 4.2 mmol/L Chloride Level 101 mmol/L Carbon Dioxide Level 36 mmol/L Anion Gap 3.0 mmol/L Blood Urea Nitrogen 19 mg/dl Creatinine 0.73 mg/dl Est Creatinine Clear Calc Drug Dose 55.1 ml/min Estimated GFR () 95.4 Estimated GFR (Non- 82.3 BUN/Creatinine Ratio 25.8 Random Glucose 103 mg/dl Calcium Level 9.4 mg/dl Magnesium Level 2.0 mg/dl (Azul De Leon ., PA-C) Assessment and Plan 71-year-old female with a history of COPD with continuous supplemental O2 use at home, anxiety, dementia, pulmonary hypertension, non-small cell lung cancer s /p chemoradiation (2010), radiation bronchiectasis, hypertension, aortic stenosis s/p aortic valve replacement, and dual chamber pacemaker who presents to the ED on 07/17 with shortness of breath. CXR shows progressive right perihilar lobular density, possible lymphadenopathy versus recurrent mass. Chest CT shows development of new lymph nodes and nodules as well as progressive lymphadenopathy consistent with metastatic disease. Also shows patchy groundglass airspace opacity left upper lobe, post radiation change versus infectious pneumonitis. Small patchy air space opacities in left lower lobe may represent infectious process. Small right pleural effusion, which is increased in size compared to 08/23/15 study. Patient was recently admitted to [facility] in the end of June due to suicidal ideation and benzodiazepine abuse. COPD exacerbation, possible HAP, new pulmonary nodules and lymphadenopathy-- improving -Admit to [facility] for cardiac monitoring. Patient remained in sinus rhythm with heart rate in the 90s-100s overnight, no episodes of A. fib 07/21. Transfer to med/surg on 07/21 -D/C Prednisone -DuoNebs QIDR and q2h prn SOB/wheezing -Continue Spiriva 2 puffs inh qd -O2 by protocol -Pt. follows with Dr. Morales. Pulmonology consulted, appreciate recs: Discussed with patient and , they do not wish to pursue bronchoscopy at this point. Continue current treatment. F/u within 2 weeks of discharge. -Oncology consulted, appreciate recs: Will schedule pt for outpt visit and PET/ CT scan. Signing off. -Pt unable to tolerate MRI -MRSA negative in nares, D/C vancomycin. -Continue Levaquin 750 mg PO qd. Day #6 -Sputum culture positive for Iraida albicans -Fluconazole 100 mg PO qd x 7 days. -Blood cultures NGTD x2 -Influenza negative -Leukocytosis stable, likely secondary to steroid use. WBC 14.45 on 07/22 Hypokalemia--resolved -Potassium 2.9 on 07/18, was 3.8 on arrival -KCl 10 mEq IV x 4 given, then 20 mEq PO -Potassium 3.1 on 07/21 -Increased KCl to 40 mEq PO BID -Potassium 4.2 on 07/22 -Continue to monitor -Magnesium within normal limits Dysphagia -Speech therapy consulted. Patient cleared for slippery regular diet. Tolerating well Dementia/memory loss -Continue donepezil 5 mg PO qd and Namenda 5 mg PO qd Anemia--stable -Vitamin B12 elevated, folate within normal limits -Iron, ferritin and transferrin saturation% all WNL -TIBC slightly low at 240, transferrin slightly low at 194 -Hgb stable at 12.9 on 07/22 GERD -Continue Protonix 40 mg PO qd Anxiety/depression--stable. Recently admitted to the BHU at [facility] with benzodiazepine abuse/withdrawal and suicidal ideation. Per [facility] records, patient has been feeling worsening anxiety and depression due to fights with her and increasing difficulty taking care of herself -Continue gabapentin 200 mg PO TID per psych recs -Avoid benzos and other addictive agents -Consult psychiatry, appreciate recs: continue fluoxetine 60 mg PO qd and gabapentin 200 mg PO TID. HTN--stable -Continue diltiazem 300 mg PO qd HLD--stable -Continue simvastatin 10 mg PO qd DVT prophylaxis -Enoxaparin 40 mg SC q24h -SCDs Code Status -Level V, DO NOT RESUSCITATE Dispo -Patient from home. Lives with -States she cannot go home because she cannot take care of herself and her can no longer help her -PT/OT evaluate and treat, recommend acute rehab -Pt requested [facility], however they will require a Level II assessment due to recent psych admission. Process has been initiated. -Referral placed to [facility] as well, although unlikely they can accept This chart was completed in part utilizing [employer] Speech Voice Recognition software. Attempts were made to minimize the grammatical errors, random word insertions, pronoun errors and incomplete sentences. Any formal questions or concerns about the content, text or information contained within the body of this dictation should be directly addressed to the provider for clarification. (Azul De Leon ., PA-C) I agree with PA assessment and plan and have personally seen and examined pt myself Pt improved with anxiety No worsening sob VSS Agree with pred taper for COPD exab DC when placement arranged No further concerns (Sharath Logan, D.O.)
[2016-07-22] MEDS: LEVOFLOXACIN 750 MG TAB PO SCH (09:46)
[2016-07-22] MEDS: TIOTROPIUM BROMIDE 5 PUFF/90 MCG INH INH SCH (09:46)
[2016-07-22] MEDS: ENOXAPARIN 40 MG/0.4 ML SYR SC SCH (09:47)
[2016-07-22] MEDS: IPRATROPIUM BROMIDE/ALBUTEROL respimat INH INH SCH ×3 (12:59→21:29)
[2016-07-22 16:18] VITALS: BP 135/70; PULSE 80; TEMP 36.7; O2SAT 95
[2016-07-22] MEDS: PANTOprazole SOD 40 MG TAB PO SCH (21:30)
[2016-07-22] MEDS: SIMVASTATIN 10 MG TAB PO SCH (21:30)
[2016-07-22] MEDS: TRAZODONE HCL 50 MG TAB PO SCH (21:32)
[2016-07-23] MEDS: GUAIFENESIN 200 MG TAB PO SCH ×6 (01:40→20:58)
[2016-07-23 06:06] LABS: MEAN CELL VOLUME 91.3 fL (80-100); MEAN CORPUSCULAR HEMOGLOBIN 30.3 pg (25-34); MEAN CORPUSCULAR HGB CONC 33.2 g/dl (32-36); MEAN PLATELET VOLUME 9.3 fL (7.4-10.4); PLATELET COUNT 209 K/uL (130-400); RED BLOOD COUNT 4.16 M/uL (4.2-5.4); WHITE BLOOD COUNT 15.77 K/uL (4.8-10.8)
[2016-07-23 07:32] VITALS: BP 126/75; PULSE 90; TEMP 36.8; O2SAT 96
[2016-07-23 07:35] LABS: BUN/CREATININE RATIO 24.2 (10-20); CALCIUM 9.2 mg/dl (8.5-10.1); CREATININE 0.84 mg/dl (0.60-1.20)
[2016-07-23] MEDS: IPRATROPIUM BROMIDE/ALBUTEROL respimat INH INH SCH ×4 (08:13→20:57)
[2016-07-23] MEDS: TIOTROPIUM BROMIDE 5 PUFF/90 MCG INH INH SCH (08:14)
[2016-07-23] MEDS: GABAPENTIN 100 MG CAP PO SCH ×3 (08:14→21:01)
[2016-07-23] MEDS: MEMANTINE 5 MG TAB PO SCH (08:15)
[2016-07-23] MEDS: POTASSIUM CHLORIDE 20 MEQ TABCR PO SCH ×2 (08:15→20:58)
[2016-07-23] MEDS: DONEPEZIL HCL 5 MG TAB PO SCH (08:15)
[2016-07-23] MEDS: FLUOXETINE HCL 20 MG CAP PO SCH ×2 (08:16→08:17)
[2016-07-23] MEDS: FLUCONAZOLE 100 MG TAB PO SCH (08:16)
[2016-07-23] MEDS: DILTIAZEM HCL 300 MG CAPCR PO SCH (08:17)
[2016-07-23] MEDS: SODIUM CHLORIDE 0.65% NA SOLN 45 ML (OCEAN) NAE SCH ×2 (08:17→20:57)
[2016-07-23] MEDS ORDERED: RANITIDINE HCL 150 MG TAB PO ONE (09:39)
--- NOTE | 2016-07-23 09:47 | Hospitalist Progress Note ---
Hospitalist Progress Note Date of Service Jul 23, 2016. (Azul De Leon ., PA-C) Subjective Patient reports feeling slightly worse compared to yesterday. She states she was not able to sleep well last night. She also states that she does not have any SOB at rest but complains of BARRERA. Her sore throat is improved today. She complains of indigestion. She denies pain, numbness or tingling in the LLE. The patient denies fevers, chills, sweats, chest pain, palpitations, claudication, cough, wheezing, shortness of breath at rest, nausea, vomiting, abdominal pain, dysuria, hematuria, urinary retention, paralysis, weakness, numbness and tingling. Additional Comments: See HPI for pertinent positives and negatives. All other systems reviewed and negative. (Azul De Leon ., PA-C) Objective Vital Signs Date Time Temp Pulse Resp B/P Pulse Ox O2 Delivery O2 Flow Rate FiO2 07/23/16 07:32 36.8 90 18 126/75 96 Nasal Cannula 2.0 07/23/16 04:05 Nasal Cannula 3.0 07/23/16 00:05 Nasal Cannula 3.0 07/22/16 20:05 Nasal Cannula 3.0 07/22/16 16:18 36.7 80 16 135/70 95 Room Air 07/22/16 16:00 Nasal Cannula 3.0 Humidified Oxygen 07/22/16 12:00 Nasal Cannula 3.0 Humidified Oxygen (Azul De Leon ., PA-C) Physical Exam General Appearance: WD/WN, no apparent distress Eyes: normal inspection, PERRL, EOMI ENT: normal ENT inspection, hearing grossly normal, pharynx normal Neck: supple, no JVD, trachea midline Respiratory/Chest: normal breath sounds, no respiratory distress, + decreased breath sounds, + wheezing (bases bilaterally, improved) Cardiovascular: regular rate, rhythm, no gallop, no murmur Abdomen: normal bowel sounds, non tender, soft Extremities: non-tender, normal inspection, no pedal edema Neurologic/Psychiatric: alert, normal mood/affect (does not appear anxious today), oriented x 3 Skin: normal color, warm/dry, no rash (Azul De Leon ., PUMA-C) Laboratory Results Last 24 Hours Test 07/23/16 05:30 White Blood Count 15.77 K/uL Red Blood Count 4.16 M/uL Hemoglobin 12.6 g/dL Hematocrit 38.0 % Mean Corpuscular Volume 91.3 fL Mean Corpuscular Hemoglobin 30.3 pg Mean Corpuscular Hemoglobin Concent 33.2 g/dl RDW Standard Deviation 44.6 fL RDW Coefficient of Variation 13.5 % Platelet Count 209 K/uL Mean Platelet Volume 9.3 fL Sodium Level 138 mmol/L Potassium Level 4.0 mmol/L Chloride Level 99 mmol/L Carbon Dioxide Level 32 mmol/L Anion Gap 7.0 mmol/L Blood Urea Nitrogen 20 mg/dl Creatinine 0.84 mg/dl Est Creatinine Clear Calc Drug Dose 47.7 ml/min Estimated GFR () 80.5 Estimated GFR (Non- 69.4 BUN/Creatinine Ratio 24.2 Random Glucose 100 mg/dl Calcium Level 9.2 mg/dl (Azul De Leon ., PA-C) Assessment and Plan 71-year-old female with a history of COPD with continuous supplemental O2 use at home, anxiety, dementia, pulmonary hypertension, non-small cell lung cancer s /p chemoradiation (2010), radiation bronchiectasis, hypertension, aortic stenosis s/p aortic valve replacement, and dual chamber pacemaker who presents to the ED on 07/17 with shortness of breath. CXR shows progressive right perihilar lobular density, possible lymphadenopathy versus recurrent mass. Chest CT shows development of new lymph nodes and nodules as well as progressive lymphadenopathy consistent with metastatic disease. Also shows patchy groundglass airspace opacity left upper lobe, post radiation change versus infectious pneumonitis. Small patchy air space opacities in left lower lobe may represent infectious process. Small right pleural effusion, which is increased in size compared to 08/23/15 study. Patient was recently admitted to [facility] in the end of June due to suicidal ideation and benzodiazepine abuse. COPD exacerbation, possible HAP, new pulmonary nodules and lymphadenopathy-- improving -Admit to [facility] for cardiac monitoring. Patient remained in sinus rhythm with heart rate in the 90s-100s overnight, no episodes of A. fib 07/21. Transfer to med/surg on 07/21 -D/C Prednisone -DuoNebs QIDR and q2h prn SOB/wheezing -Continue Spiriva 2 puffs inh qd -O2 by protocol -Pt. follows with Dr. Waddington. Pulmonology consulted, appreciate recs: Discussed with patient and , they do not wish to pursue bronchoscopy at this point. Continue current treatment. F/u within 2 weeks of discharge. -Oncology consulted, appreciate recs: Will schedule pt for outpt visit and PET/ CT scan. Signing off. -Pt unable to tolerate MRI -MRSA negative in nares, D/C vancomycin. -Continue Levaquin 750 mg PO qd. Day #7. D/C after today's dose -Sputum culture positive for Iraida albicans -Fluconazole 100 mg PO qd x 7 days. Day #2 -Blood cultures NGTD x2 -Influenza negative -Leukocytosis stable, likely secondary to steroid use. WBC 15.77 on 07/23 Hypokalemia--resolved -Potassium 2.9 on 07/18, was 3.8 on arrival -KCl 10 mEq IV x 4 given, then 20 mEq PO -Potassium 3.1 on 07/21 -Increased KCl to 40 mEq PO BID -Potassium 4.0 on 07/23 -Continue to monitor -Magnesium within normal limits Dysphagia -Speech therapy consulted. Patient cleared for slippery regular diet. Tolerating well Dementia/memory loss -Continue donepezil 5 mg PO qd and Namenda 5 mg PO qd Anemia--stable -Vitamin B12 elevated, folate within normal limits -Iron, ferritin and transferrin saturation% all WNL -TIBC slightly low at 240, transferrin slightly low at 194 -Hgb remains stable in 12s GERD -Continue Protonix 40 mg PO qhs -Add Zantac 150 mg PO qam Anxiety/depression--stable. Recently admitted to the BHU at [facility] with benzodiazepine abuse/withdrawal and suicidal ideation. Per [facility] records, patient has been feeling worsening anxiety and depression due to fights with her and increasing difficulty taking care of herself -Continue gabapentin 200 mg PO TID per psych recs -Avoid benzos and other addictive agents -Consult psychiatry, appreciate recs: continue fluoxetine 60 mg PO qd and gabapentin 200 mg PO TID. HTN--stable -Continue diltiazem 300 mg PO qd HLD--stable -Continue simvastatin 10 mg PO qd DVT prophylaxis -Enoxaparin 40 mg SC q24h -SCDs Code Status -Level V, DO NOT RESUSCITATE Dispo -Patient from home. Lives with -States she cannot go home because she cannot take care of herself and her can no longer help her -PT/OT evaluate and treat, recommend acute rehab -Pt requested [facility], however they will require a Level II assessment due to recent psych admission. Process has been initiated. -Referral placed to [facility] as well, although unlikely they can accept This chart was completed in part utilizing [employer] Speech Voice Recognition software. Attempts were made to minimize the grammatical errors, random word insertions, pronoun errors and incomplete sentences. Any formal questions or concerns about the content, text or information contained within the body of this dictation should be directly addressed to the provider for clarification. (Azul De Leon ., PA-C) I agree with PA assessment and plan and have seen and examined pt myself States did not sleep last night Worse anxiety Tremor improved No worsening sob Awaiting placement Hemodynamically stable (Sharath Logan D.O.)
[2016-07-23] MEDS: ENOXAPARIN 40 MG/0.4 ML SYR SC SCH (09:48)
[2016-07-23] MEDS: LEVOFLOXACIN 750 MG TAB PO SCH (10:59)
[2016-07-23 15:32] VITALS: BP 131/74; PULSE 77; TEMP 36.7; O2SAT 97
[2016-07-23] MEDS: SIMVASTATIN 10 MG TAB PO SCH (20:58)
[2016-07-23] MEDS: TRAZODONE HCL 50 MG TAB PO SCH (20:58)
[2016-07-23] MEDS: PANTOprazole SOD 40 MG TAB PO SCH (21:01)
[2016-07-23 23:26] VITALS: BP 132/70; PULSE 71; TEMP 36.7; O2SAT 100
[2016-07-24] MEDS: GUAIFENESIN 200 MG TAB PO SCH ×6 (02:00→20:59)
[2016-07-24 05:59] LABS: HEMATOCRIT 36.7 % (37-47); MEAN CELL VOLUME 92.2 fL (80-100); MEAN CORPUSCULAR HEMOGLOBIN 30.4 pg (25-34); MEAN PLATELET VOLUME 9.7 fL (7.4-10.4); PLATELET COUNT 171 K/uL (130-400); RED BLOOD COUNT 3.98 M/uL (4.2-5.4); WHITE BLOOD COUNT 14.85 K/uL (4.8-10.8)
[2016-07-24 06:25] LABS: BUN/CREATININE RATIO 23.5 (10-20); CREATININE 0.83 mg/dl (0.60-1.20); POTASSIUM 4.3 mmol/L (3.5-5.1)
[2016-07-24 07:46] VITALS: BP 124/58; PULSE 89; TEMP 36.7; O2SAT 97
[2016-07-24 08:00] VITALS: O2SAT 97
[2016-07-24] MEDS: IPRATROPIUM BROMIDE/ALBUTEROL respimat INH INH SCH ×4 (08:22→20:49)
[2016-07-24] MEDS: GABAPENTIN 100 MG CAP PO SCH ×3 (08:23→20:53)
[2016-07-24] MEDS: MEMANTINE 5 MG TAB PO SCH (08:24)
[2016-07-24] MEDS: DONEPEZIL HCL 5 MG TAB PO SCH (08:24)
[2016-07-24] MEDS: POTASSIUM CHLORIDE 20 MEQ TABCR PO SCH ×2 (08:24→20:53)
[2016-07-24] MEDS: FLUOXETINE HCL 20 MG CAP PO SCH ×2 (08:24→08:30)
[2016-07-24] MEDS: RANITIDINE HCL 150 MG TAB PO SCH (08:25)
[2016-07-24] MEDS: FUROSEMIDE 20 MG TAB PO SCH (08:26)
[2016-07-24] MEDS: SODIUM CHLORIDE 0.65% NA SOLN 45 ML (OCEAN) NAE SCH ×2 (08:27→20:49)
[2016-07-24] MEDS: TIOTROPIUM BROMIDE 5 PUFF/90 MCG INH INH SCH (08:28)
[2016-07-24] MEDS: DILTIAZEM HCL 300 MG CAPCR PO SCH (08:29)
[2016-07-24] MEDS: FLUCONAZOLE 100 MG TAB PO SCH (08:29)
[2016-07-24] MEDS: ENOXAPARIN 40 MG/0.4 ML SYR SC SCH (08:31)
--- NOTE | 2016-07-24 12:31 | Hospitalist Progress Note ---
Hospitalist Progress Note Date of Service Jul 24, 2016. Subjective Pt evaluation today including: conversation w/ patient, physical exam, chart review, lab review, review of inpatient medication list Pain: None PO Intake: Tolerating PO diet Voiding: no voiding problems Patient is feeling well today. She states that she was able to sleep last night and that her anxiety is not too bad today. She does still get short of breath on exertion but denies any shortness of breath at rest. Her sore throat is also improving. She states that her left leg is not bothering her today. Denies any pain numbness or tingling. The patient denies fevers, chills, sweats , chest pain, palpitations, claudication, cough, wheezing, shortness of breath at rest, nausea, vomiting, abdominal pain, dysuria, hematuria, urinary retention , paralysis, weakness, numbness and tingling. Additional Comments: See HPI for pertinent positives and negatives. All other systems reviewed and negative. Objective Vital Signs Date Time Temp Pulse Resp B/P Pulse Ox O2 Delivery O2 Flow Rate FiO2 07/24/16 08:00 97 Nasal Cannula 3.0 07/24/16 07:46 36.7 89 16 124/58 97 Nasal Cannula 3.0 07/24/16 00:00 Nasal Cannula 3.0 07/23/16 23:26 36.7 71 18 132/70 100 Room Air 2.0 07/23/16 16:00 Nasal Cannula 3.0 07/23/16 15:32 36.7 77 18 131/74 97 2.0 Physical Exam General Appearance: WD/WN, no apparent distress Eyes: normal inspection, PERRL, EOMI ENT: normal ENT inspection, hearing grossly normal, pharynx normal Neck: supple, no JVD, trachea midline Respiratory/Chest: normal breath sounds, no respiratory distress, + wheezing ( improved) Cardiovascular: regular rate, rhythm, no gallop, no murmur Abdomen: normal bowel sounds, non tender, soft Extremities: non-tender, normal inspection, no pedal edema Neurologic/Psychiatric: alert, normal mood/affect, oriented x 3 Skin: normal color, warm/dry, no rash Laboratory Results Last 24 Hours Test 07/24/16 05:10 White Blood Count 14.85 K/uL Red Blood Count 3.98 M/uL Hemoglobin 12.1 g/dL Hematocrit 36.7 % Mean Corpuscular Volume 92.2 fL Mean Corpuscular Hemoglobin 30.4 pg Mean Corpuscular Hemoglobin Concent 33.0 g/dl RDW Standard Deviation 45.3 fL RDW Coefficient of Variation 13.4 % Platelet Count 171 K/uL Mean Platelet Volume 9.7 fL Sodium Level 137 mmol/L Potassium Level 4.3 mmol/L Chloride Level 98 mmol/L Carbon Dioxide Level 35 mmol/L Anion Gap 4.0 mmol/L Blood Urea Nitrogen 19 mg/dl Creatinine 0.83 mg/dl Est Creatinine Clear Calc Drug Dose 48.3 ml/min Estimated GFR () 81.7 Estimated GFR (Non- 70.4 BUN/Creatinine Ratio 23.5 Random Glucose 109 mg/dl Calcium Level 9.0 mg/dl Assessment and Plan 71-year-old female with a history of COPD with continuous supplemental O2 use at home, anxiety, dementia, pulmonary hypertension, non-small cell lung cancer s /p chemoradiation (2010), radiation bronchiectasis, hypertension, aortic stenosis s/p aortic valve replacement, and dual chamber pacemaker who presents to the ED on 07/17 with shortness of breath. CXR shows progressive right perihilar lobular density, possible lymphadenopathy versus recurrent mass. Chest CT shows development of new lymph nodes and nodules as well as progressive lymphadenopathy consistent with metastatic disease. Also shows patchy groundglass airspace opacity left upper lobe, post radiation change versus infectious pneumonitis. Small patchy air space opacities in left lower lobe may represent infectious process. Small right pleural effusion, which is increased in size compared to 08/23/15 study. Patient was recently admitted to [facility] in the end of June due to suicidal ideation and benzodiazepine abuse. COPD exacerbation, possible HAP, new pulmonary nodules and lymphadenopathy-- improving -Admit to [facility] for cardiac monitoring. Patient remained in sinus rhythm with heart rate in the 90s-100s overnight, no episodes of A. fib 07/21. Transfer to med/surg on 07/21 -D/C Prednisone -DuoNebs QIDR and q2h prn SOB/wheezing -Continue Spiriva 2 puffs inh qd -O2 by protocol -Pt. follows with Dr. Morales. Pulmonology consulted, appreciate recs: Discussed with patient and , they do not wish to pursue bronchoscopy at this point. Continue current treatment. F/u within 2 weeks of discharge. -Oncology consulted, appreciate recs: Will schedule pt for outpt visit and PET/ CT scan. Signing off. -Pt unable to tolerate MRI -MRSA negative in nares, D/C vancomycin. -Received 7 days Levaquin 750 mg PO qd -Sputum culture positive for Iraida albicans -Fluconazole 100 mg PO qd x 7 days. Day #3 -Blood cultures no growth (final) x 2 -Influenza negative -Leukocytosis stable, likely secondary to steroid use. WBC 14.85 on 07/24 Hypokalemia--resolved -Potassium 2.9 on 07/18, was 3.8 on arrival -KCl 10 mEq IV x 4 given, then 20 mEq PO -Potassium 3.1 on 07/21 -Increased KCl to 40 mEq PO BID -Potassium 4.3 on 07/24 -Magnesium within normal limits Dysphagia -Speech therapy consulted. Patient cleared for slippery regular diet. Tolerating well Dementia/memory loss -Continue donepezil 5 mg PO qd and Namenda 5 mg PO qd Anemia--stable -Vitamin B12 elevated, folate within normal limits -Iron, ferritin and transferrin saturation% all WNL -TIBC slightly low at 240, transferrin slightly low at 194 -Hgb remains stable in 12s GERD -Continue Protonix 40 mg PO qhs -Add Zantac 150 mg PO qam Anxiety/depression--stable. Recently admitted to the BHU at [facility] with benzodiazepine abuse/withdrawal and suicidal ideation. Per [facility] records, patient has been feeling worsening anxiety and depression due to fights with her and increasing difficulty taking care of herself -Continue gabapentin 200 mg PO TID per psych recs -Avoid benzos and other addictive agents -Consult psychiatry, appreciate recs: continue fluoxetine 60 mg PO qd and gabapentin 200 mg PO TID. HTN--stable -Continue diltiazem 300 mg PO qd HLD--stable -Continue simvastatin 10 mg PO qd DVT prophylaxis -Enoxaparin 40 mg SC q24h -SCDs Code Status -Level V, DO NOT RESUSCITATE Dispo -Patient from home. Lives with -States she cannot go home because she cannot take care of herself and her can no longer help her -PT/OT evaluate and treat, recommend acute rehab -Pt requested [facility], however they will require a Level II assessment due to recent psych admission. Process has been initiated. Awaiting determination. -Referral placed to [facility] as well, although unlikely they can accept This chart was completed in part utilizing [employer] Speech Voice Recognition software. Attempts were made to minimize the grammatical errors, random word insertions, pronoun errors and incomplete sentences. Any formal questions or concerns about the content, text or information contained within the body of this dictation should be directly addressed to the provider for clarification.
[2016-07-24 15:56] VITALS: BP 126/63; PULSE 73; TEMP 37.1; O2SAT 96
[2016-07-24 16:00] VITALS: O2SAT 96
[2016-07-24] MEDS: hydrOXYzine HCL 10 MG TAB PO PRN (20:52)
[2016-07-24] MEDS: TRAZODONE HCL 50 MG TAB PO SCH (20:52)
[2016-07-24] MEDS: PANTOprazole SOD 40 MG TAB PO SCH (20:53)
[2016-07-24] MEDS: SIMVASTATIN 10 MG TAB PO SCH (20:53)
[2016-07-24 23:20] VITALS: BP 114/70; PULSE 81; TEMP 36.7; O2SAT 96
[2016-07-25] MEDS: GUAIFENESIN 200 MG TAB PO SCH ×6 (02:00→21:09)
[2016-07-25 07:17] VITALS: BP 130/78; PULSE 87; TEMP 36.7; O2SAT 99
[2016-07-25] MEDS: POTASSIUM CHLORIDE 20 MEQ TABCR PO SCH ×2 (09:30→19:36)
[2016-07-25] MEDS: DILTIAZEM HCL 300 MG CAPCR PO SCH (09:31)
[2016-07-25] MEDS: FLUCONAZOLE 100 MG TAB PO SCH (09:31)
[2016-07-25] MEDS: RANITIDINE HCL 150 MG TAB PO SCH (09:32)
[2016-07-25] MEDS: DONEPEZIL HCL 5 MG TAB PO SCH (09:32)
[2016-07-25] MEDS: MEMANTINE 5 MG TAB PO SCH (09:33)
[2016-07-25] MEDS: FLUOXETINE HCL 20 MG CAP PO SCH ×3 (09:33→17:32)
[2016-07-25] MEDS: GABAPENTIN 100 MG CAP PO SCH ×3 (09:33→19:36)
[2016-07-25] MEDS: IPRATROPIUM BROMIDE/ALBUTEROL respimat INH INH SCH ×4 (09:34→19:33)
[2016-07-25] MEDS: SODIUM CHLORIDE 0.65% NA SOLN 45 ML (OCEAN) NAE SCH ×2 (09:34→19:33)
[2016-07-25] MEDS: ENOXAPARIN 40 MG/0.4 ML SYR SC SCH (09:35)
[2016-07-25] MEDS: TIOTROPIUM BROMIDE 5 PUFF/90 MCG INH INH SCH ×2 (11:33→17:32)
[2016-07-25 14:07] VITALS: O2SAT 99
[2016-07-25 16:09] VITALS: BP 132/75; PULSE 69; TEMP 37; O2SAT 100
--- NOTE | 2016-07-25 17:49 | Progress Note ---
Subjective Date of Service: Jul 25, 2016. Subjective Pt evaluation today including: conversation w/ patient, chart review, lab review, review of studies, conversation w/ professional benefits sales consultant, review of inpatient medication list Sitting up in chair, eating dinner, no complaining Problem List Medical Problems: (1) Cough with hemoptysis Status: Acute (2) New left bundle branch block (LBBB) Status: Acute (3) Pneumonia Status: Acute (4) Pre-syncope Status: Acute (5) SOB (shortness of breath) Status: Acute Review of Systems Constitutional: + fatigue, No chills, No fever, No problem reported, No sweats , No weakness, No weight loss Eyes: No diplopia, No discharge, No eye pain, No redness, No worsening of vision ENT: No dental problems, No hearing loss, No nasal symptoms, No sore throat, No tinnitus, No trouble swallowing, No unusual epistaxis Respiratory: No cough, No dyspnea at rest, No dyspnea on exertion, No hemoptysis, No shortness of breath, No sputum, No wheezing Cardiac: No PND, No chest pain, No claudication, No edema, No orthopnea, No palpitations Abdomen: No constipation, No diarrhea, No nausea, No pain, No vomiting Musculoskeletal: No calf pain, No joint pain, No muscle pain, No swelling Female : No abnormal vaginal bleeding, No dysuria, No hematuria, No incontinence, No urinary frequency, No vaginal discharge Neurologic: No balance problems, No memory loss, No numbness/tingling, No paralysis, No vertigo, No weakness Psychiatric: No anhedonism, No anxiety, No depression symptoms, No insomnia, No substance abuse Heme: No abnormal bleeding/bruising, No clotting problems, No night sweats, No swollen lymph nodes Endo: No excessive thirst, No excessive urination, No fatigue Skin: No bleeding, No color change, No itch, No new/changing skin lesions, No rash Objective Vital Signs Date Time Temp Pulse Resp B/P Pulse Ox O2 Delivery O2 Flow Rate FiO2 07/25/16 16:24 Nasal Cannula 3.5 07/25/16 16:09 37.0 69 20 132/75 100 Nasal Cannula 3.0 07/25/16 14:07 99 07/25/16 09:15 Nasal Cannula 3.5 07/25/16 07:17 36.7 87 18 130/78 99 3.0 07/25/16 00:01 Nasal Cannula 3.5 07/24/16 23:20 36.7 81 20 114/70 96 Nasal Cannula 3.5 Physical Exam General Appearance: WD/WN, no apparent distress, + thin, + pertinent finding ( frail) Eyes: normal inspection, PERRL, EOMI, sclerae normal ENT: normal ENT inspection, hearing grossly normal, pharynx normal Neck: supple, no adenopathy, thyroid normal, no JVD, no carotid bruits, trachea midline Respiratory/Chest: chest non-tender, normal breath sounds, no respiratory distress, no accessory muscle use, + decreased breath sounds, + pertinent finding (left anterior chest wall has med port) Cardiovascular: regular rate, rhythm, no edema, no gallop, no JVD, no murmur Abdomen: normal bowel sounds, non tender, soft, no organomegaly, no pulsatile mass Extremities: normal range of motion, non-tender, normal inspection, no pedal edema, no calf tenderness, normal capillary refill, pelvis stable Neurologic/Psychiatric: black belt II-XII nml as tested, no motor/sensory deficits, alert, normal mood/affect, oriented x 3 Skin: normal color, warm/dry, no rash Lymphatic: no adenopathy Assessment and Plan 71-year-old female admitted on 07/17/2016 with shortness of breath. CXR shows progressive right perihilar lobular density, possible lymphadenopathy versus recurrent mass. Chest CT shows development of new lymph nodes and nodules as well as progressive lymphadenopathy consistent with metastatic disease. Also shows patchy groundglass airspace opacity left upper lobe, post radiation change versus infectious pneumonitis. Small patchy air space opacities in left lower lobe may represent infectious process. Small right pleural effusion, which is increased in size compared to 08/23/15 study. Patient was recently admitted to [facility] in the end of June due to suicidal ideation and benzodiazepine abuse. COPD exacerbation, possible HAP, new pulmonary nodules and lymphadenopathy-- improving/stable Was in tele for cardiac monitoring. Patient remained in sinus rhythm with heart rate in the 90s-100s overnight, no episodes of A. fib 07/21. Transfer to med/surg on 07/21 -D/C Prednisone -DuoNebs QIDR and q2h prn SOB/wheezing -Continue Spiriva 2 puffs inh qd -O2 by protocol -Pt. follows with Dr. Morales. Pulmonology consulted, appreciate recs: Discussed with patient and , they do not wish to pursue bronchoscopy at this point. Continue current treatment. F/u within 2 weeks of discharge. -Oncology consulted, appreciate recs: Will schedule pt for outpt visit and PET/ CT scan. Signing off. -Pt unable to tolerate MRI -MRSA negative in nares, D/C vancomycin. -Received 7 days Levaquin 750 mg PO qd -Sputum culture positive for Iraida albicans -Fluconazole 100 mg PO qd x 7 days. Day #4 -Blood cultures no growth (final) x 2 -Influenza negative -Leukocytosis stable, likely secondary to steroid use. Hypokalemia--resolved -Potassium 2.9 on 07/18, was 3.8 on arrival -KCl 10 mEq IV x 4 given, then 20 mEq PO -Potassium 3.1 on 07/21 -Increased KCl to 40 mEq PO BID -Potassium 4.3 on 07/24 -Magnesium within normal limits Dysphagia -Speech therapy consulted. Patient cleared for slippery regular diet. Tolerating well Dementia/memory loss -Continue donepezil 5 mg PO qd and Namenda 5 mg PO qd Anemia--stable -Vitamin B12 elevated, folate within normal limits -Iron, ferritin and transferrin saturation% all WNL -TIBC slightly low at 240, transferrin slightly low at 194 -Hgb remains stable in 12s GERD -Continue Protonix 40 mg PO qhs -Add Zantac 150 mg PO qam Anxiety/depression--stable. Recently admitted to the BHU at [facility] with benzodiazepine abuse/withdrawal and suicidal ideation. Per [facility] records, patient has been feeling worsening anxiety and depression due to fights with her and increasing difficulty taking care of herself -Continue gabapentin 200 mg PO TID per psych recs -Avoid benzos and other addictive agents -Consult psychiatry, appreciate recs: continue fluoxetine 60 mg PO qd and gabapentin 200 mg PO TID. HTN--stable -Continue diltiazem 300 mg PO qd HLD--stable -Continue simvastatin 10 mg PO qd DVT prophylaxis -Enoxaparin 40 mg SC q24h -SCDs Code Status -Level V, DO NOT RESUSCITATE Dispo -Patient from home. Lives with -States she cannot go home because she cannot take care of herself and her can no longer help her -PT/OT evaluate and treat, recommend acute rehab, however insurance company declined I discussed with patient above the situation, asking her if she wanted me to a peer ot peer review, she seems do not want me to do that Continued [facility] stay due to: other Discharge planning: home with home health
[2016-07-25] MEDS: TRAZODONE HCL 50 MG TAB PO SCH (19:36)
[2016-07-25] MEDS: PANTOprazole SOD 40 MG TAB PO SCH (19:37)
[2016-07-25 20:00] VITALS: O2SAT 100
[2016-07-25] MEDS: SIMVASTATIN 10 MG TAB PO SCH (20:16)
[2016-07-25 23:10] VITALS: BP 125/69; PULSE 81; TEMP 36.7; O2SAT 99
[2016-07-26 00:01] VITALS: O2SAT 100
[2016-07-26] MEDS: GUAIFENESIN 200 MG TAB PO SCH ×3 (02:00→10:28)
[2016-07-26] MEDS: FLUCONAZOLE 100 MG TAB PO SCH (07:48)
[2016-07-26] MEDS: RANITIDINE HCL 150 MG TAB PO SCH (07:48)
[2016-07-26] MEDS: FUROSEMIDE 20 MG TAB PO SCH ×2 (07:48→07:58)
[2016-07-26] MEDS: MEMANTINE 5 MG TAB PO SCH (07:49)
[2016-07-26] MEDS: DONEPEZIL HCL 5 MG TAB PO SCH (07:49)
[2016-07-26] MEDS: POTASSIUM CHLORIDE 20 MEQ TABCR PO SCH (07:50)
[2016-07-26] MEDS: GABAPENTIN 100 MG CAP PO SCH (07:50)
[2016-07-26] MEDS: TIOTROPIUM BROMIDE 5 PUFF/90 MCG INH INH SCH (07:51)
[2016-07-26] MEDS: IPRATROPIUM BROMIDE/ALBUTEROL respimat INH INH SCH ×2 (07:51→11:57)
[2016-07-26] MEDS: SODIUM CHLORIDE 0.65% NA SOLN 45 ML (OCEAN) NAE SCH (07:53)
[2016-07-26] MEDS: DILTIAZEM HCL 300 MG CAPCR PO SCH (07:54)
[2016-07-26] MEDS: FLUOXETINE HCL 20 MG CAP PO SCH ×2 (07:56)
[2016-07-26 07:59] VITALS: BP 124/79; PULSE 87; TEMP 36.7; O2SAT 98
[2016-07-26 08:00] VITALS: O2SAT 100
[2016-07-26] MEDS: ENOXAPARIN 40 MG/0.4 ML SYR SC SCH (10:28)
[2016-07-26] MEDS ORDERED: DFL100 PO (10:36)
[2016-07-26] MEDS ORDERED: ZNT150 PO (10:36)
[2016-07-26] MEDS ORDERED: NRN100 PO (10:36)
--- NOTE | 2016-07-26 10:37 | Discharge Instructions ---
Discharge Instructions Date of Service Jul 26, 2016. Admission Reason for Admission: Copd, Pneumonia Discharge Discharge Diagnosis / Problem: COPD exacerbation/pneumonia Discharge Goals Goal(s): Decrease discomfort, Improve function, Increase independence, Improve disease control, Improve nutritional status, Learn about illness, Diagnostic testing, Therapeutic intervention, Prevent Disease Progression, Specific goals Activity Recommendations Activity Limitations: resume your previous activity (fall preacution) . Instructions / Follow-Up Instructions / Follow-Up you have COPD exacerbation/pneumonia , new pulmonary nodules and lymphadenopathy you need to follow up with Dr. Morales in 2-3 weeks you need to follow up with oncologist, and keep appointment of outpt visit and PET/CT scan. you have Sputum culture positive for Iraida albicans, you have been on Fluconazole 100 mg PO qd x 7 days. Day #5, need to days more you need to continue r slippery regular diet. you need to cont home health care for physical therapy - you need to follow up with your primary care physician in 1 week, - take medication as instructed, never overdose or any misuse, or take with alcohol, because misuse of medicine may cause organ damage or , call your primary care physician if have questions of medicaitons. - call your primary care physician OR go to local emergency room if has any fever/chill, chest pain, shortness of breathing, nausea/vomiting/abdominal pain , facial droop/slurry speech/local weakness, or if has any questions. - fall precaution - diet as instructed - you need to follow up with your subspecialists - you should understand that it is important to follow up the above instruction , and "not following the above instruction" may cause delayed or missed care of your medical conditions which may cause permanent organ damage and even . Current Hospital Diet Patient's current hospital diet: Regular Diet Discharge Diet Recommended Diet: Regular Diet Pending Studies Studies pending at discharge: no Medical Emergencies . Who to Call and When: Medical Emergencies: If at any time you feel your situation is an emergency, please call 911 immediately. . Non-Emergent Contact Non-Emergency issues call your: Primary Care Provider, Oncologist, Metal Drill Press Operator . . "Provider Documentation" section prepared by Blanco Oliver. VTE Core Measure Inpt VTE Proph given/why not?: Enoxaparin (Lovenox)SQ
--- NOTE | 2016-07-26 10:46 | Discharge Summary ---
Discharge Summary Date of Service Jul 26, 2016. Discharge Summary Admission Date: Jul 17, 2016 at 06:37 Discharge Date: Jul 26, 2016 Discharge Disposition: Home with services Principal Diagnosis: COPD exacerbation/pneumonia , new pulmonary nodules and lymphadenopathy Problems/Secondary Diagnoses: Sputum culture positive for Iraida albicans, Immunizations: Have You Had Influenza Vaccine: Yes Influenza Vaccine Date: Jan 20, 2013 History of Tetanus Vaccine?: utd History of Pneumococcal: Yes Pneumococcal Date: Apr 22, 2010 History of Hepatitis B Vaccine: No Consultations: pulm and onco Medication Reconciliation New Medications: Fluconazole (Fluconazole) 100 Mg Tab 100 MG PO QAM for 2 Days, TAB Gabapentin (Gabapentin) 100 Mg Cap 200 MG PO TID for 30 Days, CAP Ranitidine HCl (Ranitidine HCl) 150 Mg Tab 150 MG PO QAM for 7 Days, TAB Continued Medications: Albuterol Hfa (Ventolin Hfa) 200 Puffs/37885 Mcg Aers 2-4 PUFFS INH Q6H PRN for SOB/Wheezing Albuterol Sulf (Proventil 0.083% 2.5MG/3ML) 2.5 Mg/3 Ml Nebu 2.5 MG INH QID PRN for SOB/Wheezing, EA Cyanocobalamin (Vitamin B-12) 1,000 Mcg Tab 1000 MCG PO DAILY, TAB Diltiazem Hcl Extended Release (Tiazac 300 Mg) 300 Mg Cap 300 MG PO DAILY Donepezil HCl (Donepezil HCl) 5 Mg Tab 5 MG PO DAILY Fluoxetine Hcl (Prozac) 40 Mg Cap 40 MG PO QAM TAKE WITH 10MG Fluoxetine HCl (Fluoxetine HCl) 10 Mg Cap 10 MG PO QAM TAKE WITH 40MG Fluticasone Furoate-Vilanterol (Breo Ellipta) 1 Inh Inh 1 PUFF INH DAILY 100-25 MCG/INH Fluticasone Propionate (Nasal) (Flonase Allergy Relief) 50 Mcg/Act Spr 1 SPRAY PAULETTE BID Furosemide (Lasix) 20 Mg Tab 1 TAB PO Q2D for 90 Days, TAB 1 Refill Hydrocodone W/ Homatropine (Hycodan 5/1.5MG 5 Ml) 1 Syp Syp 5 ML PO Q4H PRN for Cough Ipratropium Clayton (Ipratropium Clayton) 0.5 Mg/2.5 Ml Nebu 1 VIAL NEB QID, 5 Refills Ipratropium Clayton (Ipratropium Clayton) 0.5 Mg/2.5 Ml Nebu 1 VIAL NEB QID PRN for SOB/Wheezing, 3 Refills TAKE WITH LEVALBUTEROL Lactobacillus Acidophilus (Lactinex) Tab 1 TAB PO DAILY, TAB Levalbuterol Hcl (Levalbuterol Hcl) 1.25 Mg/3 Ml Neb 1 VIAL NEB QID PRN for SOB/Wheezing TAKE WITH IPRATROPIUM Memantine HCl (Memantine HCl) 5 Mg Tab 5 MG PO DAILY Nystatin (Nystatin Suspension) 1 Ml Susp 5 ML PO QID PRN for NEEDED SWISH AND SWALLOW Oxygen (Oxygen) Gas 2 LITERS NA CONTINOUS Pantoprazole (Protonix) 40 Mg Tab 40 MG PO HS, 0 Refills Saline ([place] Nasal [place]) 0.65 % Spr 2 SPRAYS PAULETTE BID Simvastatin (Simvastatin) 10 Mg Tab 10 MG PO HS Sucralfate (Carafate) 1 Gm/10 Ml Jeane 10 ML PO TID PRN for STOMACHE IRRITATION Tiotropium [place] Monohydrate (Spiriva Respimat) 2.5 Mcg/Act Spr 2 PUFFS INH DAILY Trazodone Hcl (Trazodone) 50 Mg Tab 50 MG PO HS Discontinued Medications: Gabapentin (Gabapentin) 100 Mg Cap 100 MG PO TID Discharge Exam Doing well, sitting a chair, no complaining Review of Systems: Constitutional: No chills, No fatigue, No fever, No problem reported, No sweats, No weakness, No weight loss Eyes: No diplopia, No discharge, No eye pain, No problem reported, No redness, No worsening of vision ENT: No dental problems, No hearing loss, No nasal symptoms, No problem reported, No sore throat, No tinnitus, No trouble swallowing, No unusual epistaxis Respiratory: No cough, No dyspnea at rest, No dyspnea on exertion, No hemoptysis, No problem reported, No shortness of breath, No sputum, No wheezing Cardiovascular: No PND, No chest pain, No claudication, No edema, No orthopnea, No palpitations, No problem reported Abdomen: No GI bleeding, No constipation, No diarrhea, No nausea, No pain, No problem reported, No vomiting Musculoskeletal: No calf pain, No joint pain, No muscle pain, No problem reported, No swelling Genitourinary - Female: No dysmenorrhea, No dysuria, No hematuria, No menorrhagia, No metrorrhagia, No , No problem reported, No rash, No urinary frequency, No urinary incontinence, No urinary retention, No urinary urgency, No vaginal bleeding, No vaginal discharge, No vaginal itching, No vulvodynia Neurologic: No balance problems, No memory loss, No numbness/tingling, No paralysis, No problem reported, No vertigo, No weakness Psychiatric: No anhedonism, No anxiety, No depression symptoms, No insomnia , No problem reported, No substance abuse Endocrine: No excessive thirst, No excessive urination, No fatigue, No problem reported Hematologic / Lymphatic: No abnormal bleeding/bruising, No clotting problems , No night sweats, No problem reported, No swollen lymph nodes Integumentary: No bleeding, No color change, No itch, No new/changing skin lesions, No problem reported, No rash Physical Exam: General Appearance: WD/WN, no apparent distress Eyes: normal inspection, PERRL ENT: normal ENT inspection, hearing grossly normal Neck: supple, no adenopathy Respiratory/Chest: chest non-tender, normal breath sounds, no respiratory distress, no accessory muscle use, + decreased breath sounds Cardiovascular: regular rate, rhythm, no edema, no gallop, no JVD, no murmur Abdomen / GI: normal bowel sounds, non tender, soft, no organomegaly, no pulsatile mass Extremities: normal inspection, no calf tenderness, normal capillary refill , no pedal edema, normal range of motion Neurologic/Psychiatric: cycle touring guide II-XII nml as tested, no motor/sensory deficits , alert, normal mood/affect, normal reflexes, oriented x 3 Skin: normal color, warm/dry Hospital Course 71-year-old female admitted on 07/17/2016 with shortness of breath. CXR shows progressive right perihilar lobular density, possible lymphadenopathy versus recurrent mass. Chest CT shows development of new lymph nodes and nodules as well as progressive lymphadenopathy consistent with metastatic disease. Also shows patchy groundglass airspace opacity left upper lobe, post radiation change versus infectious pneumonitis. Small patchy air space opacities in left lower lobe may represent infectious process. Small right pleural effusion, which is increased in size compared to 08/23/15 study. Patient was recently admitted to [facility] in the end of June due to suicidal ideation and benzodiazepine abuse. COPD exacerbation, possible HAP, new pulmonary nodules and lymphadenopathy-- improving/stable Was in tele for cardiac monitoring. Patient remained in sinus rhythm with heart rate in the 90s-100s overnight, no episodes of A. fib 07/21. Transfer to med/surg on 07/21 -D/C Prednisone -DuoNebs QIDR and q2h prn SOB/wheezing -Continue Spiriva 2 puffs inh qd -O2 by protocol -Pt. follows with Dr. Morales. Pulmonology consulted, appreciate recs: Discussed with patient and , they do not wish to pursue bronchoscopy at this point. Continue current treatment. F/u within 2 weeks of discharge. -Oncology consulted, appreciate recs: Will schedule pt for outpt visit and PET/ CT scan. Signing off. -Pt unable to tolerate MRI -MRSA negative in nares, D/C vancomycin. -Received 7 days Levaquin 750 mg PO qd -Sputum culture positive for Iraida albicans -Fluconazole 100 mg PO qd x 7 days. Day #4 -Blood cultures no growth (final) x 2 -Influenza negative -Leukocytosis stable, likely secondary to steroid use. Hypokalemia--resolved -Potassium 2.9 on 07/18, was 3.8 on arrival -KCl 10 mEq IV x 4 given, then 20 mEq PO -Potassium 3.1 on 07/21 -Increased KCl to 40 mEq PO BID -Potassium 4.3 on 07/24 -Magnesium within normal limits Dysphagia -Speech therapy consulted. Patient cleared for slippery regular diet. Tolerating well Dementia/memory loss -Continue donepezil 5 mg PO qd and Namenda 5 mg PO qd Anemia--stable -Vitamin B12 elevated, folate within normal limits -Iron, ferritin and transferrin saturation% all WNL -TIBC slightly low at 240, transferrin slightly low at 194 -Hgb remains stable in 12s GERD -Continue Protonix 40 mg PO qhs -Add Zantac 150 mg PO qam Anxiety/depression--stable. Recently admitted to the BHU at [facility] with benzodiazepine abuse/withdrawal and suicidal ideation. Per [facility] records, patient has been feeling worsening anxiety and depression due to fights with her and increasing difficulty taking care of herself -Continue gabapentin 200 mg PO TID per psych recs -Avoid benzos and other addictive agents -Consult psychiatry, appreciate recs: continue fluoxetine 60 mg PO qd and gabapentin 200 mg PO TID. HTN--stable -Continue diltiazem 300 mg PO qd HLD--stable -Continue simvastatin 10 mg PO qd DVT prophylaxis -Enoxaparin 40 mg SC q24h -SCDs Code Status -Level V, DO NOT RESUSCITATE Dispo -Patient from home. Lives with -States she cannot go home because she cannot take care of herself and her can no longer help her -PT/OT evaluate and treat, recommend acute rehab, however insurance company declined I discussed with patient above the situation, asking her if she wanted me to a peer ot peer review, she seems do not want me to do that Instructions / Follow-Up you have COPD exacerbation/pneumonia , new pulmonary nodules and lymphadenopathy you need to follow up with Dr. Morales in 2-3 weeks you need to follow up with oncologist, and keep appointment of outpt visit and PET/CT scan. you have Sputum culture positive for Iraida albicans, you have been on Fluconazole 100 mg PO qd x 7 days. Day #5, need to days more you need to continue r slippery regular diet. you need to cont home health care for physical therapy - you need to follow up with your primary care physician in 1 week, - take medication as instructed, never overdose or any misuse, or take with alcohol, because misuse of medicine may cause organ damage or , call your primary care physician if have questions of medicaitons. - call your primary care physician OR go to local emergency room if has any fever/chill, chest pain, shortness of breathing, nausea/vomiting/abdominal pain , facial droop/slurry speech/local weakness, or if has any questions. - fall precaution - diet as instructed - you need to follow up with your subspecialists - you should understand that it is important to follow up the above instruction , and "not following the above instruction" may cause delayed or missed care of your medical conditions which may cause permanent organ damage and even . Total Time Spent: Greater than 30 minutes This includes examination of the patient, discharge planning, medication reconciliation, and communication with other providers. Discharge Instructions Please refer to the electronic Patient Visit Report (Discharge Instructions) for additional information. Additional Copies To Jigar Yanez DO; Kathy Ventura M.D.
[2016-07-26 11:27] VITALS: BP 124/79; PULSE 87; TEMP 36.7; O2SAT 100
[2016-09-21] MEDS ORDERED: FLUO40CA8 PO (08:02)
[2016-09-21] MEDS ORDERED: GABA-112 PO (08:12)
[2016-09-21] MEDS ORDERED: NMN10 PO (08:12)
[2016-10-04] MEDS ORDERED: LACT1CAP3 PO (11:55)
== END 2016-07-26 14:00 | disposition home health service (06) | DRG 190 ==
LOC: CANRESERV → ENRESERVDT → ENRESERVTM → EDBD 04:43 → C.EDA 04:44 → C.MED 06:37 → C.4E 07-25 06:59
PROVIDERS: ADMIT Student in an Organized Health Care Education/Training Program; ATTEND Hospitalist
DX: J44.1 Chronic obstructive pulmonary disease with (acute) exacerbation (principal); C34.81 Malignant neoplasm of overlapping sites of right bronchus and lung; C77.1 Secondary and unspecified malignant neoplasm of intrathoracic lymph nodes; J18.9 Pneumonia, unspecified organism; I27.2 Other secondary pulmonary hypertension; Z87.891 Personal history of nicotine dependence; Z88.2 Allergy status to sulfonamides; K21.9 Gastro-esophageal reflux disease without esophagitis; F32.9 Major depressive disorder, single episode, unspecified; I10 Essential (primary) hypertension; Z92.3 Personal history of irradiation; G30.9 Alzheimer's disease, unspecified; Z66 Do not resuscitate; Z99.81 Dependence on supplemental oxygen; F02.80 Dementia in other diseases classified elsewhere, unspecified severity, without behavioral disturbance, psychotic disturbance, mood disturbance, and anxiety; F41.9 Anxiety disorder, unspecified; I25.10 Atherosclerotic heart disease of native coronary artery without angina pectoris; G62.9 Polyneuropathy, unspecified; E53.8 Deficiency of other specified B group vitamins; E87.6 Hypokalemia; Z53.29 Procedure and treatment not carried out because of patient's decision for other reasons; I44.7 Left bundle-branch block, unspecified; Z95.2 Presence of prosthetic heart valve

== ENCOUNTER → 2016-08-23 | Outpatient (CLI) | payer OTHER ==
[~2016-08-23] MED LIST changes: +ALBINS/ INH; -ALBU0.5N2 NEB; -ALBUAER2 INH; +ARC5 PO; -ASPI1TAB83 PO; +DFL100 PO; -DILT240C57 PO; +DILT300C34 PO; +FLUO10CA24 PO; -FLUO20CA35 PO; +FLUO40CA8 PO; +GABA-112 PO; -IBUP-103 PO; +LACT1CAP3 PO; +LCTX PO; +LEVA1.258 NEB; -LORA-741 PO; +MEMA1TAB3 PO; +NMN10 PO; +NRN100 PO; +NYSS/ PO; +PRZ/40 PO; +SALI0.6510 NAE; -SALI0.6517 NAE; +TRAZ50TA35 PO; +VNTHFA/IN INH; +ZNT150 PO
--- NOTE | 2016-08-23 13:24 | DIAGNOSTIC IMAGING REPORT ---
PET/CT CLINICAL HISTORY: Lung masses. Non-small cell lung cancer. TECHNIQUE: A PET/CT was performed from the skull base through the upper thighs following intravenous injection of 9.36 mCi of F 18 FDG IV. The injection was performed at 10:01 AM on August 23, 2016 and imaging began at 11:15 AM on August 23, 2016. Unenhanced CT was performed for attenuation correction purposes and anatomic localization. COMPARISON STUDY: Chest CTs August 23, 2015 and July 17, 2016. FINDINGS: Head and neck: No abnormal FDG uptake is identified within the neck. A few prominent right supraclavicular lymph nodes have no significant abnormal FDG uptake. Chest: Emphysema is noted. There are post therapeutic findings within the right hemithorax with right perihilar soft tissue thickening which demonstrates no significant FDG uptake. Note is made of a 3.9 x 2.9 cm right suprahilar FDG avid mass which was shown on CT of July 17, 2016. This mass likely slightly increased in size since that exam. This mass has marked FDG uptake with an SUV max of 9.3. A 3.1 x 2.7 cm right middle lobe lesion abutting the heart border has marked FDG uptake with an SUV max of 9.4. An irregular 1.8 cm right lower lobe nodule shown on image 93 has mildly increased in size since prior CT. This has marked FDG uptake with an SUV max of 9. A small right pleural effusion is slightly increased in size. Multiple pleural implants demonstrate moderate FDG uptake within the right hemithorax. There is mild FDG uptake within irregular left lower lobe subpleural opacity. Abdomen and Pelvis: Note is made of a 1.4 x 1.1 cm aortocaval lymph node shown image 119 that has marked FDG uptake with an SUV max of 6.6. No additional foci suspicious FDG uptake are identified within the abdomen or the pelvis. A 3 cm cystic left adnexal lesion is unchanged and CT of March 09, 2013. This likely reflects a cyst. This is no FDG uptake. Musculoskeletal: No suspicious skeletal uptake is identified. IMPRESSION: 1. Marked FDG uptake within a 3.9 cm right suprahilar mass/lymph node, 3.1 cm right middle lobe mass which abuts the right heart border and 1.8 cm right lower lobe nodule consistent with recurrent malignancy or metastatic disease. 2. Slight increase in size of a small malignant right pleural effusion with multiple small FDG avid pleural implants. 3. FDG avid 1.4 x 1.1 cm aortocaval lymph node consistent with hayes spread of malignancy. Electronically signed by: Stanislav Vigil M.D. 08/23/2016 1:22 PM Dictated Date/Time: 08/23/2016 12:38 PM
== END | disposition home or self-care (01) ==
LOC: C.PET 08:22
PROVIDERS: ATTEND Internal Medicine Hematology & Oncology
DX: C34.31 Malignant neoplasm of lower lobe, right bronchus or lung (principal); R91.8 Other nonspecific abnormal finding of lung field

== ENCOUNTER 2016-09-21 07:21 | Day surgery (SDC) | payer OTHER ==
[~2016-09-21] VITALS: Ht 152.4 cm; Wt 58.0 kg
[2016-09-21] VITALS (26 sets, daily range): BP systolic 126–163; BP diastolic 53–91; PULSE 60–90; TEMP 36.4–36.7; O2SAT 91–99; Ht 152.4 cm; Wt 58.0 kg
[~2016-09-21 07:21] MED LIST changes: -FLUO40CA8 PO; -GABA-112 PO; -LACT1CAP3 PO; -NMN10 PO
[2016-09-21] MEDS ORDERED: FENTANYL CITRATE 100 MCG 2 ML CARP IV ONE (07:22)
[2016-09-21] MEDS ORDERED: LIDOCAINE HCL 2% LOCAL 50ML VIAL INFIL ONE (07:22)
[2016-09-21] MEDS ORDERED: MIDAZOLAM HCL 5 MG/ML 2ML VIAL IV ONE (07:22)
[2016-09-21] MEDS ORDERED: FLUO40CA8 PO ×2 (08:02)
[2016-09-21] MEDS ORDERED: GABA-112 PO ×2 (08:12)
[2016-09-21] MEDS ORDERED: NMN10 PO ×2 (08:12)
--- NOTE | 2016-09-21 08:26 | History and Physical ---
History & Physical Date Sep 21, 2016. Chief Complaint Lung Mass History of Present Illness The patient is a 71 year old female with complaints of lung mass: [id number] 71- year-old lady here for follow-up on severe COPD, oxygen-dependent and non-small cell lung carcinoma: Patient was admitted to [facility] last month with COPD exacerbation and CT of the thorax performed 07/17/2016 showed signs consistent with recurrent lung cancer. The patient responded to the treatment well with antibiotics and IV steroids at this time has not noted any recurrence of her signs and symptoms which caused her admission. In the hospital I did speak at length to the patient her showed the multiple images of the new CT findings. Today she is accompanied by her daughter who is a nurse and I have also discussed the CT findings. The patient notes she is stable via her pulmonary function. She currently denies: Fever, chills, productive cough, pleurisy, classic cardiac chest pain or hemoptysis. Past medical history includes: MBL/CLL, Sever COPD (FEV1: 0.7/47%), chronic O2: 3LPM, pleural effusion, C. difficile colitis, GERD, hyperlipidemia, non-small cell lung carcinoma (right - s/p chemotherapy and XRT), hypertension, hypoxemia (2LPM QHS and PRN), radiation fibrosis - right, grade II diastolic dysfunction, T8 compression fx, s/p duel-chamber pacemaker (03/2015), aortic stenosis s/p bovine AVR (01/2015), h/o remote seizure x 1, and pulmonary HTN. CT of the thorax with contrast performed 07/17/2016 -interval development of her 3.6 x 2.5 centimeter right suprahilar mass -development 2.8 x 2.2 centimeter nodule abutting the right heart border -multiple new small pulmonary nodules most dominant 13 millimeters -progressive hilar and mediastinal lymphadenopathy Past Medical/Surgical History Medical Problems: (1) Benign hypertension (2) CLL (chronic lymphocytic leukemia) (3) COPD (chronic obstructive pulmonary disease) (4) COPD exacerbation (5) Depression (6) Dizzy spells (7) Elevated troponin (8) Non-small cell lung cancer (9) Pneumonia Surgical Problems: (1) S/P aortic valve replacement (2) S/P carpal tunnel release Additional History Hepatic Disease: No Endocrine Disorder: No Kidney Disease: No Hypertension: Yes Heart Disease: Yes Bleeding Tendencies: Yes (hx of hemoptysis) Infectious Diseases: No Allergies Coded Allergies: Sulfa Antibiotics (Verified Allergy, Intermediate, HIVES, 09/21/16) Home Medications Scheduled Cyanocobalamin (Vitamin B-12), 1,000 MCG PO DAILY Diltiazem Hcl Extended Release (Tiazac 300 Mg), 300 MG PO DAILY Fluoxetine (Prozac), 40 MG PO DAILY Fluticasone Furoate-Vilanterol (Breo Ellipta), 1 PUFF INH DAILY Fluticasone Propionate (Nasal) (Flonase Allergy Relief), 1 SPRAY PAULETTE BID Furosemide (Lasix), 1 TAB PO Q2D Gabapentin (Neurontin), 200 MG PO TID Ipratropium [place] (Ipratropium [place]), 1 VIAL NEB QID Lactobacillus Acidophilus (Lactinex), 1 TAB PO DAILY Memantine (Namenda), 10 MG PO DAILY Oxygen (Oxygen), 2 LITERS NA CONTINOUS Pantoprazole (Protonix), 40 MG PO HS Saline ([place] Nasal [place]), 2 SPRAYS PAULETTE BID Simvastatin (Simvastatin), 10 MG PO HS Tiotropium [place] Monohydrate (Spiriva Respimat), 2 PUFFS INH DAILY Trazodone Hcl (Trazodone), 50 MG PO HS Scheduled PRN Albuterol Hfa (Ventolin Hfa), 2-4 PUFFS INH Q6H PRN for SOB/Wheezing Albuterol Sulf (Proventil 0.083% 2.5MG/3ML), 2.5 MG INH QID PRN for SOB/Wheezing Hydrocodone W/ Homatropine (Hycodan 5/1.5MG 5 Ml), 5 ML PO Q4H PRN for Cough Ipratropium [place] (Ipratropium [place]), 1 VIAL NEB QID PRN for SOB/Wheezing Levalbuterol Hcl (Levalbuterol Hcl), 1 VIAL NEB QID PRN for SOB/Wheezing Nystatin (Nystatin Suspension), 5 ML PO QID PRN for NEEDED Sucralfate (Carafate), 10 ML PO TID PRN for STOMACHE IRRITATION Physical Examination Skin: warm/dry, no rash Eyes: normal inspection, EOMI, sclerae normal ENT: normal ENT inspection, pharynx normal Head: normocephalic, atraumatic Neck: supple, no adenopathy, trachea midline Respiratory/Chest: + pertinent finding (minimal wheezing bilaterally) Cardiovascular: regular rate, rhythm, no edema, no murmur Abdomen / GI: normal bowel sounds, non tender Back: normal inspection Extremities: normal inspection, normal range of motion Neurologic/Psych: no motor/sensory deficits, alert, normal reflexes, oriented x 3 Diagnosis Lung Mass possible recurrent lung ca ASA Classification: ASA Class III Plan of Treatment Bronchoscopy with BAL, cytology brushing and intra/trans bronchial tracehal bx's
--- NOTE | 2016-09-21 08:27 | Procedure Note ---
Pre-Mod Sedation Assessment General Date of Moderate Sedation: Sep 21, 2016. Review Cardiovascular: regular rate, rhythm, no edema, no gallop Abdomen: normal bowel sounds, non tender, soft, no organomegaly, no pulsatile mass, normal rectal exam, occult blood negative Lungs: + wheezing Airway Class: II Pre-Sedation Airway Assessment Short Thick Neck: No Hx of Sleep Apnea: No Smoking Status: Former Smoker Notes The planned sedation has been discussed with the patient and consent obtained. I have identified the patient, determined the appropriateness of sedation and have assessed the patient immediately prior to the procedure. All medicine(s) and interventions are by my order.
[2016-09-21] MEDS ORDERED: NURSING VERBAL MED ORDER ONE (08:30)
[2016-09-21] MEDS ORDERED: SODIUM CHLORIDE 0.9% 1000ML 1,000 ML IV SCH (08:45)
--- NOTE | 2016-09-21 10:49 | Procedure Note ---
Post-Moderate Sedation Plan General Date of Moderate Sedation Sep 21, 2016. Vital Signs: Vital Signs Past 12 Hours Date Time Temp Pulse Resp B/P (MAP) Pulse Ox O2 Delivery O2 Flow Rate FiO2 09/21/16 10:25 60 20 129/53 96 Mask 15.0 09/21/16 10:20 61 20 133/53 93 Mask 15.0 09/21/16 10:15 61 12 133/53 93 Mask 15.0 09/21/16 10:10 64 12 142/60 93 Mask 15.0 09/21/16 10:05 61 16 139/54 93 Mask 15.0 09/21/16 10:00 63 16 126/53 92 Mask 15.0 09/21/16 09:55 63 16 142/60 93 Mask 15.0 09/21/16 09:50 62 16 144/66 91 Mask 15.0 09/21/16 09:45 65 16 151/71 95 Mask 15.0 09/21/16 09:40 70 16 158/74 92 Mask 8.0 09/21/16 09:35 67 16 151/69 94 Mask 5.0 09/21/16 09:30 75 16 150/67 95 Mask 5.0 09/21/16 09:25 76 16 154/69 96 Mask 5.0 09/21/16 09:20 78 16 156/69 97 Mask 5.0 09/21/16 09:15 87 16 163/88 98 Mask 5.0 09/21/16 09:10 88 16 160/73 98 Mask 5.0 09/21/16 09:05 88 16 161/66 99 Mask 5.0 09/21/16 09:00 89 16 156/66 99 Mask 8.0 09/21/16 08:55 90 16 155/82 99 Mask 8.0 09/21/16 08:22 36.6 90 21 147/63 (91) 96 Nasal Cannula 3 Review - Discharge Plan Post Moderate Sedation Plan: On clinical assessment, the patient appears to have tolerated the conscious sedation without complications. Patient is recovering as anticipated with associated mild hypoxemia status post procedure. Patient will continue to be monitored by nursing and may be discharged when conscious sedation discharge criteria are met.
--- NOTE | 2016-09-21 10:54 | Bronchoscopy Procedure Note ---
Bronchoscopy Procedure Note Procedure: Bronchoscopy, conscious sedation, Tbbx RML, TTNA, Bronchial washing RLL Consent: Obtained through the patient placed into the chart Pre-procedural diagnosis: Recurrent non-small cell lung cancer Post-procedural diagnosis: Recurrent non-small cell lung cancer Start time: 919 End time: 1014 Total time: 55 minutes Analgesia: 2% liquid lidocaine: Via nebulizer 4% gel lidocaine: Via right naris 2% liquid lidocaine: Via bronchoscopy Sedation: Versed IV: 7mg Fentanyl IV: 125g Procedure: The [employer] video bronchoscope was used for this procedure and passed down through the right naris Right naris/posterior naris/posterior oropharynx: Nasal septum notably with ostium to the left side Glottis: Anatomically within normal limits Vocal cords: Proper abduction and abduction, anatomically within normal limits Subglottis/trachea/Rafia: Rafia notably widened, mild medial bulging of the right lower/distal trachea approximately 2 cm to 3 cm above the level of the rafia Right bronchial tree: Right mainstem bronchus: Diffuse hyperemia Right upper lobe: Splayed secondary rafia leading to the right upper lobe Bronchus intermedius: Notably narrowed and hyperemic Right middle lobe: Severe narrowing unable to pass the scope to the ostium of the right middle lobe Right lower lobe: Anatomically rotated clockwise with hyperreninemia Left bronchial tree: Left mainstem bronchus: Anatomically within normal limits Left upper lobe: Anatomically within normal limits Lingula: Anatomically within normal limits Left lower lobe: Anatomically within normal limits Findings: No significant findings noted Bronchial Washing: RLL Tbbx: RML x6 TTNA: x5 right sided 2-3 cm above the rafia EBL: 5cc Complications: Mild to moderate hypoxemia Follow-up: In the [facility]
--- NOTE | 2016-09-21 10:56 | Discharge Instructions ---
Discharge Instructions Date of Service Sep 21, 2016. Admission Reason for Admission: Lung Mass; Adenocarcinoma Of Lung; Sob Discharge Discharge Diagnosis / Problem: I likelihood of recurrent lung cancer Discharge Goals Goal(s): Diagnostic testing Activity Recommendations Activity Limitations: resume your previous activity Lifting Limitations: no more than 10 pounds . Instructions / Follow-Up Instructions / Follow-Up Follow-up in the [place] [facility] within 7-10 days after procedure Current Hospital Diet Patient's current hospital diet: Discharge Diet Recommended Diet: Regular Diet Procedures Procedures Performed: Bronchoscopy, transferred tracheal needle aspiration, bronchial washing of the right lower lobe, trans-bronchial forceps of the right middle lobe with conscious sedation Pending Studies Studies pending at discharge: yes List of pending studies: Cytologic and microbiologic analysis Medical Emergencies . Who to Call and When: Medical Emergencies: If at any time you feel your situation is an emergency, please call 911 immediately. . Non-Emergent Contact Non-Emergency issues call your: Head Irrigator Call Non-Emergent contact if: temperature is above 101.5 . . "Provider Documentation" section prepared by Santhosh Morales. . VTE Core Measure Inpt VTE Proph given/why not?: Treatment not tolerated
--- NOTE | 2016-09-21 11:21 | DIAGNOSTIC IMAGING REPORT ---
CHEST 1 VW FRONT-NOT PORTABLE CLINICAL HISTORY: Post bronchoscopy examination COMPARISON STUDY: 07/17/2016 FINDINGS: There is a left-sided A-Port catheter unchanged in position. There is a right-sided dual-lumen central venous pacemaker. There is a right suprahilar soft tissue nodule. There is right hilar enlargement. Since the prior study, the patient developed right basilar airspace opacities. There is associated right pleural effusion. Linear left basilar opacities are likely atelectatic. There is no pneumothorax.[ IMPRESSION: 1. No pneumothorax status post bronchoscopy 2. Right suprahilar mass/adenopathy. Right hilar enlargement. 3. Developing right lower lobe airspace opacities with a right pleural effusion. Electronically signed by: Glenroy Whitfield M.D. 09/21/2016 11:20 AM Dictated Date/Time: 09/21/2016 11:18 AM
[2016-10-04] MEDS ORDERED: LACT1CAP3 PO (11:55)
== END 2016-09-21 13:00 | disposition home or self-care (01) ==
LOC: C.ACU 07:21
PROVIDERS: ATTEND Internal Medicine Critical Care Medicine
DX: B37.1 Pulmonary candidiasis (principal); R09.02 Hypoxemia; J44.9 Chronic obstructive pulmonary disease, unspecified; Z99.81 Dependence on supplemental oxygen; I10 Essential (primary) hypertension; E78.5 Hyperlipidemia, unspecified; I27.2 Other secondary pulmonary hypertension; K21.9 Gastro-esophageal reflux disease without esophagitis; C91.10 Chronic lymphocytic leukemia of B-cell type not having achieved remission; F32.9 Major depressive disorder, single episode, unspecified; Z95.0 Presence of cardiac pacemaker; Z95.4 Presence of other heart-valve replacement; Z87.891 Personal history of nicotine dependence; Z79.899 Other long term (current) drug therapy; Z85.118 Personal history of other malignant neoplasm of bronchus and lung

== ENCOUNTER → 2016-09-22 | Outpatient (CLI) | payer OTHER ==
[~2016-09-22] MED LIST changes: +FLUO40CA8 PO; +GABA-112 PO; +LACT1CAP3 PO; +NMN10 PO; +OPTIRAY 320 IV PRN
--- NOTE | 2016-09-22 11:07 | DIAGNOSTIC IMAGING REPORT ---
CT OF THE HEAD WITH AND WITHOUT CONTRAST CT DOSE: 1553.72 mGycm CLINICAL HISTORY: Recurrent lung cancer. Headaches. TECHNIQUE: Axial images of the head were obtained before and after intravenous ministration of 100 cc Optiray 320 IV. COMPARISON STUDY: None. FINDINGS: No acute intracranial hemorrhage, midline shift or mass effect is present. Ventricular system is unremarkable for age. Basilar cisterns are patent. There are no extra-axial collections. There is no intracranial masses or pathologic enhancement. No suspicious calvarial lesions are present. Mastoid air cells are clear. There is mild mucosal thickening of the sinuses. IMPRESSION: 1. No evidence of metastatic disease. 2. No acute intracranial findings. Electronically signed by: Stanislav Vigil M.D. 09/22/2016 11:05 AM Dictated Date/Time: 09/22/2016 10:57 AM
== END | disposition home or self-care (01) ==
LOC: C.CTS 10:27
PROVIDERS: ATTEND Internal Medicine Hematology & Oncology
DX: C34.31 Malignant neoplasm of lower lobe, right bronchus or lung (principal)

== ENCOUNTER → 2016-10-02 | Outpatient (CLI) | payer OTHER ==
[~2016-10-02] MED LIST changes: -ARC5 PO; -DFL100 PO; -FLUO10CA24 PO; -MEMA1TAB3 PO; -NRN100 PO; -OPTIRAY 320 IV PRN; -PRZ/40 PO; -ZNT150 PO
--- NOTE | 2016-10-02 16:12 | DIAGNOSTIC IMAGING REPORT ---
CT OF THE CHEST WITHOUT IV CONTRAST CLINICAL HISTORY: C34.90 Adenocarcinoma of lungR91.8 COMPARISON STUDY: 07/17/2016 CT DOSE: 194.42 mGy.cm TECHNIQUE: CT of the thorax was performed from the thoracic inlet to the lung bases. Images are reviewed in the axial, sagittal, and coronal planes. IV contrast was not administered for this examination. FINDINGS: Thyroid: Imaged portions of the thyroid gland are normal in appearance. Thoracic aorta: Postsurgical changes involve the a sitting thoracic aorta, similar to the preceding study. Heart: The heart is normal in size and configuration, without pericardial effusion. Lungs and pleural spaces: There is an enlarging [id number] right pleural effusion. There is moderately severe pulmonary emphysema. There is enlarging right upper lobe pulmonary mass measuring 46 x 36 mm. There is been interval enlargement of the right lower lobe pulmonary nodule which currently measures 14.6 mm. There is interval enlargement of the right middle lobe mass which abuts the right heart border. This currently measures 59 x 29 mm. There is a right paramediastinal soft tissue opacity with air bronchograms measuring 46 mm in diameter. There are airspace opacities in the right middle lobe, likely representing a postobstructive pneumonitis. There is been minimal improvement in the left upper lobe airspace opacities. There is persistent atelectasis in bronchiectatic change within the lingula. Mediastinum: There is persistent mediastinal lymphadenopathy with nodes measuring up to 12 mm in short axis. [place]: The hilar structures are difficult to assess given the lack of intravenous contrast Axilla: There is no pathologic adenopathy Upper abdomen: There is left adrenal gland thickening Skeletal structures: There is a mild midthoracic compression deformity. There is a left-sided A-Port catheter right subclavian central venous pacemaker. IMPRESSION: 1. Progressive metastatic disease with enlarging right lung masses 2. Enlarging small to moderate right pleural effusion 3. Postobstructive right middle lobe pneumonitis 4. Slightly progressive adenopathy 5. Emphysema Electronically signed by: Glenroy Whitfield M.D. 10/02/2016 4:11 PM Dictated Date/Time: 10/02/2016 4:01 PM
== END | disposition home or self-care (01) ==
LOC: C.CTS 15:35
PROVIDERS: ATTEND Internal Medicine Critical Care Medicine
DX: C34.90 Malignant neoplasm of unspecified part of unspecified bronchus or lung (principal); R91.8 Other nonspecific abnormal finding of lung field; J90 Pleural effusion, not elsewhere classified; J18.9 Pneumonia, unspecified organism; R59.0 Localized enlarged lymph nodes; J43.9 Emphysema, unspecified

== ENCOUNTER 2016-10-05 10:00 | Day surgery (SDC) | payer OTHER ==
[~2016-10-05] VITALS: Ht 152.4 cm; Wt 57.0 kg
[~2016-10-05 10:00] MED LIST changes: -ATRINS NEB; -LEVA1.258 NEB; -NYSS/ PO
--- NOTE | 2016-10-05 10:33 | History and Physical ---
History & Physical Date Oct 05, 2016. Chief Complaint 71-year-old female here for follow-up possible possible lung cancer: Lung cancer: Patient has a history lung carcinoma previously treated with radio therapy and chemotherapy. Most recent evaluation PET scan shows increased SUV avidity in the right middle lobe as well as right maryanne tracheal lymph node. At this time she has agreed to undergo EBUS/ENB evaluation. Pulmonary team is currently working to get the patient to the OR and we will repeat her high- resolution CT scan for the ENB protocol. COPD: Patient with severe COPD FEV1 of 47%. She is to continue her current inhaler/medical regimen with albuterol, Breo Ellipta, ipratropium nebulizer, Spiriva and Xopenex on a p.r.n. basis. Hypoxic: Patient to continue on current oxygen support. History of Present Illness The patient is a 71 year old female with complaints of Past Medical/Surgical History Medical Problems: (1) Benign hypertension (2) CLL (chronic lymphocytic leukemia) (3) COPD (chronic obstructive pulmonary disease) (4) COPD exacerbation (5) Depression (6) Dizzy spells (7) Elevated troponin (8) Non-small cell lung cancer (9) Pneumonia Surgical Problems: (1) S/P aortic valve replacement (2) S/P carpal tunnel release Additional History Hepatic Disease: No Endocrine Disorder: No Kidney Disease: No Hypertension: Yes Heart Disease: Yes (aortic stenosis) Bleeding Tendencies: No Infectious Diseases: No Allergies Coded Allergies: Sulfa Antibiotics (Verified Allergy, Intermediate, HIVES, 10/04/16) Home Medications Scheduled Cyanocobalamin (Vitamin B-12), 1,000 MCG PO QAM Diltiazem Hcl Extended Release (Tiazac 300 Mg), 300 MG PO QAM Fluoxetine (Prozac), 40 MG PO QAM Fluticasone Furoate-Vilanterol (Breo Ellipta), 1 PUFF INH QAM Gabapentin (Neurontin), 200 MG PO TID Home O2 Therapy (Oxygen), 2 LITERS NA CONTINOUS Lactobacillus Acidophilus (Lactinex), 1 TAB PO QDD Lactobacillus Rhamnosus (GG) (Culturelle), 1 CAP PO QDL Memantine (Namenda), 10 MG PO QDL Pantoprazole (Protonix), 40 MG PO HS Saline ([place] Nasal [place]), 2 SPRAYS PAULETTE BID Simvastatin (Simvastatin), 10 MG PO HS Tiotropium [place] Monohydrate (Spiriva Respimat), 2 PUFFS INH QAM Trazodone Hcl (Trazodone), 50 MG PO HS Scheduled PRN Albuterol Hfa (Ventolin Hfa), 2-4 PUFFS INH Q6H PRN for SOB/Wheezing Albuterol Sulf (Proventil 0.083% 2.5MG/3ML), 2.5 MG INH QID PRN for SOB/Wheezing Fluticasone Propionate (Nasal) (Flonase Allergy Relief), 1 SPRAY PAULETTE BID PRN for clogged nose Furosemide (Lasix), 1 TAB PO Q2D PRN for fluid Hydrocodone W/ Homatropine (Hycodan 5/1.5MG 5 Ml), 5 ML PO Q4H PRN for Cough Sucralfate (Carafate), 10 ML PO TID PRN for STOMACHE IRRITATION Physical Examination Skin: warm/dry, no rash Eyes: normal inspection, EOMI, sclerae normal ENT: normal ENT inspection, pharynx normal Head: normocephalic, atraumatic Neck: supple, no adenopathy, trachea midline Respiratory/Chest: + pertinent finding (decreased breath sounds RLL posterior with dullness to percution ) Cardiovascular: regular rate, rhythm, no edema, no murmur Abdomen / GI: normal bowel sounds, non tender Back: normal inspection Extremities: normal inspection, normal range of motion Neurologic/Psych: no motor/sensory deficits, alert, normal reflexes, oriented x 3 Diagnosis Pleural Effusion with possible recurrent lung CA ASA Classification: ASA Class III Plan of Treatment Right sided thoracentesis
--- NOTE | 2016-10-05 10:33 | History & Physical Bridge Note ---
H&P Re-Evaluation Bridge Note: I have examined the patient, reviewed the History & Physical and in the interval since the performance of the History & Physical I have noted the following changes of clinical significance: No changes noted
--- NOTE | 2016-10-05 10:34 | Procedure Note ---
Procedure Note Date of Service Oct 05, 2016. Procedure Note Procedures: Right sided Thoracentesis Consent: obtained via the patient and placed into the chart Pre-Procedural Dx: right sided pleural effusion possible malignant Post-Procedural Dx: right sided pleural effusion possible malignant Analgesia: 8cc of 1% Liquid Lidocaine Procedure: The patient was placed in an upright position and thoracic US was used to select a spot for the procedure. A spot along the posterior axillary line was marked in the 7th intercostal space. The patient was then draped and prepped in a sterile fashion. A modified Seldinger technique was then used for catheter placement. Flowing this approximately 600cc of dark yellow pleural fluid was removed. The patient was then cleaned and placed at a 60 degree angle in the bed were the US was used to evaluate for possible pneumothorax. The US showed good lung sliding and [place] signs. EBL: none Complications: hematoma at the incision sight
[2016-10-05 10:58] VITALS: BP 136/63; PULSE 61; TEMP 36.7; O2SAT 98; Ht 152.4 cm; Wt 57.0 kg
[2016-10-05 11:53] VITALS: BP 127/53; PULSE 60; TEMP 36.9; O2SAT 99
--- NOTE | 2016-10-05 12:00 | Discharge Instructions ---
Discharge Instructions Date of Service Oct 05, 2016. Admission Reason for Admission: Pleural Effusion; Adenocarcinoma Of Lung Discharge Discharge Diagnosis / Problem: Rigth sided pleural effusion Discharge Goals Goal(s): Improve function, Diagnostic testing Activity Recommendations Activity Limitations: resume your previous activity . Instructions / Follow-Up Instructions / Follow-Up Follow-up with Dr. Sukhjinder Parekh and Dr. Morales Current Hospital Diet Patient's current hospital diet: Discharge Diet Recommended Diet: Regular Diet Procedures Procedures Performed: Right sided thoracentesis Pending Studies Studies pending at discharge: yes List of pending studies: Microbiologic and cytologic analysis of the pleural fluid Medical Emergencies . Who to Call and When: Medical Emergencies: If at any time you feel your situation is an emergency, please call 911 immediately. . Non-Emergent Contact Non-Emergency issues call your: Hog Man Call Non-Emergent contact if: your pain is worsening . . "Provider Documentation" section prepared by Santhosh Morales. . VTE Core Measure Inpt VTE Proph given/why not?: Treatment not indicated
--- NOTE | 2016-10-05 12:03 | DIAGNOSTIC IMAGING REPORT ---
CHEST ONE VIEW PORTABLE CLINICAL HISTORY: S/P Thoracentesis COMPARISON STUDY: 2016 FINDINGS: No evidence pneumothorax status post right thoracentesis. Improved aeration right lung base. Persistent right suprahilar masslike density. Interstitial changes at both lung bases. IMPRESSION: No evidence pneumothorax status post thoracentesis Electronically signed by: Sadiq Kaplan M.D. 10/05/2016 12:01 PM Dictated Date/Time: 10/05/2016 12:00 PM
[2016-10-05 12:14] LABS: PLEURAL FLUID TOTAL PROTEIN 3.5 g/dl
[2016-10-05 13:06] LABS: PLEURAL FLUID APPEARANCE HAZY; PLEURAL FLUID COLOR STRAW; PLEURAL FLUID MONONUC RELAT 94.7 %; PLEURAL FLUID POLYNUC 5.3 %; PLEURAL FLUID SOURCE RIGHT LUNG; PLEURAL FLUID WBC (A) 1125 /uL
== END 2016-10-05 12:14 | disposition home or self-care (01) ==
LOC: C.ACU 10:00
PROVIDERS: ATTEND Internal Medicine Critical Care Medicine
DX: J91.0 Malignant pleural effusion (principal); C34.2 Malignant neoplasm of middle lobe, bronchus or lung; F32.9 Major depressive disorder, single episode, unspecified; C91.10 Chronic lymphocytic leukemia of B-cell type not having achieved remission; J44.9 Chronic obstructive pulmonary disease, unspecified; Z95.2 Presence of prosthetic heart valve; Z87.01 Personal history of pneumonia (recurrent)

== ENCOUNTER 2016-10-12 07:58 | Day surgery (SDC) | payer OTHER ==
[2016-10-04 11:29] VITALS: Ht 152.4 cm; Wt 57.3 kg
[~2016-10-12] VITALS: Ht 152.4 cm; Wt 57.3 kg
[~2016-10-12 07:58] MED LIST changes: +LACTATED RINGER'S 1000ML 1,000 ML IV SCH
--- NOTE | 2016-10-12 08:12 | History and Physical ---
History & Physical Date Oct 12, 2016. 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 Recently surveillance is noted increasing of the right middle lobe and perihilar regions with PET scan demonstrating SUV avidity in these regions. We wonder conventional bronchoscopy with transbronchial biopsies of the right middle lobe and non guided transtracheal biopsies of the perihilar mass. The samples were nondiagnostic. She followed up with her primary oncologist Dr. Parekh was discussed the case and the patient has now agreed to move forward with EBUS/ENB evaluation. Today the patient is anxious but she denies: Fever, chills, productive cough, pleurisy, classic cardiac chest pain. Past Medical/Surgical History Medical Problems: (1) Benign hypertension (2) CLL (chronic lymphocytic leukemia) (3) COPD (chronic obstructive pulmonary disease) (4) COPD exacerbation (5) Depression (6) Dizzy spells (7) Elevated troponin (8) Non-small cell lung cancer (9) Pneumonia Surgical Problems: (1) S/P aortic valve replacement (2) S/P carpal tunnel release Additional History Hepatic Disease: No Endocrine Disorder: No Kidney Disease: No Hypertension: Yes Heart Disease: Yes Bleeding Tendencies: No Infectious Diseases: No Allergies Coded Allergies: Sulfa Antibiotics (Verified Allergy, Intermediate, HIVES, 10/05/16) Home Medications Scheduled Cyanocobalamin (Vitamin B-12), 1,000 MCG PO QAM Diltiazem Hcl Extended Release (Tiazac 300 Mg), 300 MG PO QAM Fluoxetine (Prozac), 40 MG PO QAM Fluticasone Furoate-Vilanterol (Breo Ellipta), 1 PUFF INH QAM Gabapentin (Neurontin), 200 MG PO TID Home O2 Therapy (Oxygen), 2 LITERS NA CONTINOUS Lactobacillus Acidophilus (Lactinex), 1 TAB PO QDD Lactobacillus Rhamnosus (GG) (Culturelle), 1 CAP PO QDL Memantine (Namenda), 10 MG PO QDL Pantoprazole (Protonix), 40 MG PO HS Saline ([place] Nasal [place]), 2 SPRAYS PAULETTE BID Simvastatin (Simvastatin), 10 MG PO HS Tiotropium [place] (Spiriva Respimat), 2 PUFFS INH QAM Trazodone Hcl (Trazodone), 50 MG PO HS Scheduled PRN Albuterol Hfa (Ventolin Hfa), 2-4 PUFFS INH Q6H PRN for SOB/Wheezing Albuterol Sulf (Proventil 0.083% 2.5MG/3ML), 2.5 MG INH QID PRN for SOB/Wheezing Fluticasone Propionate (Nasal) (Flonase Allergy Relief), 1 SPRAY PAULETTE BID PRN for clogged nose Furosemide (Lasix), 1 TAB PO Q2D PRN for fluid Hydrocodone W/ Homatropine (Hycodan 5/1.5MG 5 Ml), 5 ML PO Q4H PRN for Cough Sucralfate (Carafate), 10 ML PO TID PRN for STOMACHE IRRITATION Physical Examination Skin: warm/dry, no rash Eyes: normal inspection, EOMI, sclerae normal ENT: normal ENT inspection, pharynx normal Head: normocephalic, atraumatic Neck: supple, no adenopathy, trachea midline Respiratory/Chest: + pertinent finding (decreased BS with rhonchi over the rigth stacy-thorax) Cardiovascular: regular rate, rhythm, no edema, no murmur Abdomen / GI: normal bowel sounds, non tender Back: normal inspection Extremities: normal inspection, normal range of motion Neurologic/Psych: no motor/sensory deficits, alert, normal reflexes, oriented x 3 ASA Classification: ASA Class IV Plan of Treatment EBUS/ENB with BAL
[2016-10-12 08:29] VITALS: BP 152/73; PULSE 92; TEMP 36.8; O2SAT 98
[2016-10-12] MEDS ORDERED: PROPOFOL IV EMULSION 10 MG/ML 20 ML VIAL IV ONE (09:15)
[2016-10-12] MEDS ORDERED: FENTANYL CITRATE INJ 50 MCG/1 ML 2 ML VIAL ONE (09:15)
[2016-10-12] MEDS ORDERED: LIDOCAINE HCL 2% 2 ML VIAL (20MG/ML) ONE (09:15)
[2016-10-12] MEDS ORDERED: MIDAZOLAM HCL 1 MG/ML 2ML VIAL ONE (09:15)
[2016-10-12] MEDS ORDERED: DEXAMETHASONE SOD INJ 4 MG/ML VIAL ONE (10:07)
[2016-10-12] MEDS ORDERED: ALBUTEROL HFA INHALER 8.5 GM INH ONE (10:07)
[2016-10-12] MEDS ORDERED: ONDANSETRON INJ 2 MG/ML 2 ML VIAL ONE (10:07)
[2016-10-12] MEDS ORDERED: FENTANYL CITRATE INJ 50 MCG/1 ML 2 ML VIAL IV PRN (11:00)
[2016-10-12] MEDS ORDERED: ATROPINE SULFATE 0.1 MG/ML 5ML SYR IV PRN (11:00)
[2016-10-12] MEDS ORDERED: ONDANSETRON INJ 2 MG/ML 2 ML VIAL IV PRN (11:00)
[2016-10-12] MEDS ORDERED: EpHEDrine SULFATE INJ 50 MG/ML AMP IV PRN (11:00)
[2016-10-12 11:11] VITALS: PULSE 81; O2SAT 99
--- NOTE | 2016-10-12 11:24 | Bronchoscopy Procedure Note ---
Bronchoscopy Procedure Note Procedure: Bronchoscopy, conscious sedation, BAL (RLL) Consent: Obtained through the patient placed into the chart Pre-procedural diagnosis: Lung cancer Post-procedural diagnosis: Lung cancer Procedure: The [employer] video bronchoscope was used for this procedure and passed down through the ETT which was 4cm above the rafia Visualized trachea/Rafia: diffuse vascularization, diffuse mucus secretions Right bronchial tree: Right mainstem bronchus: Anatomically within normal limits Right upper lobe: Anatomically within normal limits Bronchus intermedius: Anatomically within normal limits Right middle lobe: notable external compression after to inlet Right lower lobe: diffuse vascularization with easily friable tissue Findings: diffuse vascularization, diffuse mucus secretions Left bronchial tree: Left mainstem bronchus: Anatomically within normal limits Left upper lobe: Anatomically within normal limits Lingula: Anatomically within normal limits Left lower lobe: Anatomically within normal limits Findings: diffuse mucus secretions Bronchial alveolar lavage: RLL EBL: 2cc Complications: None Follow-up: In the [facility]
--- NOTE | 2016-10-12 11:26 | Bronchoscopy Procedure Note ---
Bronchoscopy Procedure Note Procedure: EBUS, TTNA, GETA Consent: Obtained through the patient placed into the chart Preprocedural diagnosis: lung cancer Postprocedural diagnosis: lung cancer Analgesia: GETA Sedation: GETA Procedure: The Olympus video bronchoscope and EBUS scope were used for this procedure Initially the flexible bronchoscope was used for evaluation of the airways. The ET tube was notably 4 cm above the level of the rafia. Trachea: Visualized portion of the trachea was anatomically within normal limits Rafia: Anatomically within normal limits Right bronchial tree: Right mainstem bronchus: Anatomically within normal limits Right upper lobe: Anatomically within normal limits Bronchus intermedius: Anatomically within normal limits Right middle lobe: notable external compression after to inlet Right lower lobe: diffuse vascularization with easily friable tissue Findings: diffuse vascularization, diffuse mucus secretions Left bronchial tree: Left mainstem bronchus: Anatomically within normal limits Left upper lobe: Anatomically within normal limits Lingula: Anatomically within normal limits Left lower lobe: Anatomically within normal limits Findings: diffuse mucus secretions EBUS/KARI: R2 vs. primary lesion: # of passes 6 Complications: None Follow-up: PACU
--- NOTE | 2016-10-12 11:31 | DIAGNOSTIC IMAGING REPORT ---
CHEST ONE VIEW PORTABLE HISTORY: Status post bronchoscopy. COMPARISON: Chest 10/05/2016. FINDINGS: No pneumothorax. Right dual-chamber pacemaker. Left subclavian Port-A-Cath terminates in the distal SVC. The heart is stable in size. Small right pleural effusion persists. Bibasilar patchy densities have slightly progressed. Right perihilar masslike opacity is again noted. IMPRESSION: 1. No pneumothorax. 2. Right perihilar masslike opacity is again noted. 3. Progressive bibasilar densities. This could represent atelectasis or pneumonia. 4. Small right pleural effusion persists. Electronically signed by: Lazaro Hernández M.D. 10/12/2016 11:30 AM Dictated Date/Time: 10/12/2016 11:28 AM
[2016-10-12] MEDS ORDERED: ALBUT/IPRATROP 3MG/0.5MG NEB 3 ML VIAL INH ONE (11:36)
[2016-10-12 12:10] VITALS: BP 129/59; PULSE 85; TEMP 36.8; O2SAT 97
--- NOTE | 2016-10-12 12:15 | Anesthesiology Progress Note ---
Anesthesia Post Op Note Date & Time Oct 12, 2016 at 12:10 Vital Signs Pain Intensity: 0 Vital Signs Past 12 Hours Date Time Temp Pulse Resp B/P (MAP) Pulse Ox O2 Delivery O2 Flow Rate FiO2 10/12/16 11:53 87 22 10/12/16 11:53 87 22 98 10/12/16 11:51 138/68 10/12/16 11:48 87 22 10/12/16 11:48 84 22 98 10/12/16 11:46 136/96 10/12/16 11:43 87 22 98 10/12/16 11:43 86 22 10/12/16 11:41 115/75 10/12/16 11:38 84 25 100 10/12/16 11:38 85 25 10/12/16 11:36 123/85 10/12/16 11:33 85 22 100 10/12/16 11:33 85 22 10/12/16 11:31 135/67 10/12/16 11:28 84 20 99 10/12/16 11:28 85 20 10/12/16 11:27 140/45 10/12/16 11:23 83 19 10/12/16 11:23 84 19 100 10/12/16 11:22 141/66 10/12/16 11:20 81 10/12/16 11:20 79 20 100 10/12/16 11:16 117/75 10/12/16 11:15 83 18 10/12/16 11:15 82 18 98 10/12/16 11:15 20 BiPAP 50 10/12/16 11:12 124/85 10/12/16 11:11 81 37 99 BiPAP/CPAP 50 10/12/16 11:11 81 99 50 10/12/16 11:10 81 22 95 10/12/16 11:10 81 22 10/12/16 11:08 146/117 10/12/16 10:55 36.1 79 20 106/66 96 Mask 10 10/12/16 08:29 36.8 92 20 152/73 (99) 98 Nasal Cannula 4 Notes Mental Status: alert / awake / arousable, participated in evaluation Pt Amnestic to Procedure: Yes Nausea / Vomiting: adequately controlled Pain: adequately controlled Airway Patency, RR, SpO2: stable & adequate BP & HR: stable & adequate Hydration State: stable & adequate Anesthetic Complications: no major complications apparent Patient was dyspneic in pacu despite excellent positioning and O2 face mask. She was oxygenating adequately but with poor air movement bilaterally, minimal R sided breath sounds, and using accessory muscles of breathing. A CXR ruled out PNX from the procedure, and the patient was placed on BiPap and given duonebs. She did awaken nicely with this and had better and less labored respiratory effort. At the time of PACU disposition, the patient felt her breathing was at baseline and she was weaned to nasal cannula, which she uses chronically at home.
[2016-10-12 12:40] VITALS: BP 140/73; PULSE 87; O2SAT 98
[2016-10-12 13:10] VITALS: BP 147/56; PULSE 85; TEMP 37.1; O2SAT 100
--- NOTE | 2016-10-12 13:19 | Discharge Instructions ---
Discharge Instructions Date of Service Oct 12, 2016. Admission Reason for Admission: Adenocarcinoma Of Lung, Lung Mass, Sob Discharge Discharge Diagnosis / Problem: lung cancer Discharge Goals Goal(s): Diagnostic testing Activity Recommendations Activity Limitations: resume your previous activity . Instructions / Follow-Up Instructions / Follow-Up Follow-up in the [facility] Current Hospital Diet Patient's current hospital diet: Discharge Diet Recommended Diet: Regular Diet Procedures Procedures Performed: Trans-tracheal needle aspiration of R2, Bronchial alveolar lavage right lower lobe, Endobronchial ultrasound, Flexible Bronchoscopy Pending Studies Studies pending at discharge: yes List of pending studies: Cytologic analysis of the fine needle aspiration as well as microbiologic analysis of the bronchial lavage Medical Emergencies . Who to Call and When: Medical Emergencies: If at any time you feel your situation is an emergency, please call 911 immediately. . Non-Emergent Contact Non-Emergency issues call your: Smt Operator Call Non-Emergent contact if: temperature is above 101.5 . . "Provider Documentation" section prepared by Santhosh Morales. . VTE Core Measure Inpt VTE Proph given/why not?: Treatment not indicated
[2016-10-12 13:40] VITALS: BP 140/65; PULSE 87; O2SAT 98
== END 2016-10-12 13:45 | disposition home or self-care (01) ==
LOC: C.ACU 07:58
PROVIDERS: ATTEND Internal Medicine Critical Care Medicine
DX: C34.90 Malignant neoplasm of unspecified part of unspecified bronchus or lung (principal); C77.9 Secondary and unspecified malignant neoplasm of lymph node, unspecified; J70.1 Chronic and other pulmonary manifestations due to radiation; J44.9 Chronic obstructive pulmonary disease, unspecified; I10 Essential (primary) hypertension; E78.5 Hyperlipidemia, unspecified; F32.9 Major depressive disorder, single episode, unspecified; Z95.0 Presence of cardiac pacemaker; Z99.81 Dependence on supplemental oxygen; Z95.2 Presence of prosthetic heart valve; Z90.89 Acquired absence of other organs; Z88.2 Allergy status to sulfonamides; Z98.890 Other specified postprocedural states; Z68.24 Body mass index [BMI] 24.0-24.9, adult; Z82.5 Family history of asthma and other chronic lower respiratory diseases; Z83.6 Family history of other diseases of the respiratory system

== ENCOUNTER → 2016-11-02 | Outpatient (CLI) | payer OTHER ==
[~2016-11-02] MED LIST changes: -LACTATED RINGER'S 1000ML 1,000 ML IV SCH; +OPTIRAY 320 IV PRN
--- NOTE | 2016-11-02 12:10 | DIAGNOSTIC IMAGING REPORT ---
CT ABD/PELVIS IV AND ORAL CONT CLINICAL HISTORY: SMALL CELL LUNG CANCER C34.81 COMPARISON STUDY: CT scan dated 03/09/2013 TECHNIQUE: Following the IV administration of 93 mL of Optiray-320, CT scan of the abdomen and pelvis was performed from the lung bases to the proximal femurs. Images are reviewed in the axial, sagittal, and coronal planes. IV contrast was administered without complication. A dose lowering technique was utilized adhering to the principles of ALARA. CT DOSE: FINDINGS: Lower chest: There is a smaller moderate right pleural effusion. There are multiple right-sided pleural nodules consistent with metastatic disease. There is a 17 mm enlarged right pericardial lymph node. There is a 39 mm partially visualized opacity within either the right middle lobe, or right anterior mediastinum. There are left basilar atelectatic changes. There is a 4 mm left lower lobe pulmonary nodule. Liver: The contrast-enhanced liver is normal in size, contour, and attenuation. There is no intrahepatic biliary ductal dilatation. The hepatic veins and portal veins are patent. Gallbladder: Unremarkable. Spleen: Normal in size and attenuation. Pancreas: Unremarkable. Adrenal glands: There is mild left adrenal gland thickening similar to the prior study. There is a 19 mm right adrenal gland nodule versus retrocaval lymph node. Kidneys: There are subcentimeter renal hypodensities, likely representing cysts Bowel: There are no transition zones to indicate bowel obstruction. No acute inflammatory changes are visualized. Peritoneum: There is no intraperitoneal free air or abdominal ascites. Vasculature: The abdominal aorta is normal in course and caliber. Adenopathy: There is an large 19 mm retrocaval lymph node versus right adrenal gland nodule. Pelvic viscera: There is a stable 31 mm left ovarian cyst. Skeletal structures: No destructive osseous lesions are seen. IMPRESSION: 1. Moderate right pleural effusion with multiple pleural nodules consistent with metastatic disease 2. Enlarged right pericardial lymph node 3. 19 mm right retrocaval lymph node versus right adrenal gland nodule 4. No evidence of hepatic metastasis 5. Stable 31 mm left ovarian cyst 6. No evidence of bowel obstruction. No evidence of free air 7. No acute inflammatory changes within the abdomen or pelvis Electronically signed by: Glenroy Whitfield M.D. 11/02/2016 12:09 PM Dictated Date/Time: 11/02/2016 12:00 PM
--- NOTE | 2016-11-02 12:38 | DIAGNOSTIC IMAGING REPORT ---
(CHEST) THORAX WITH CLINICAL HISTORY: 71 years-old Female presenting with small cell lung cancer. TECHNIQUE: Multidetector CT imaging of the chest was performed after the administration of intravenous contrast. IV contrast: 93 mL of Optiray 320. COMPARISON: 10/02/2016. CT DOSE: The estimated cumulative dose is 462.14 mGycm. FINDINGS: Fish Trapper topogram: Right-sided pacer with leads to the right atrium and right ventricular apex. Left subclavian Mediport terminates in the region of the superior cavoatrial junction. On soft tissue windows, persistent prominence of precarinal lymph nodes, which measure up to 10 mm in the short axis. (See series 2 image 21). Atherosclerosis of the aortic arch. Normal heart size. Prosthetic aortic valve. Narrowing of the right upper lobe pulmonary artery secondary to encasement from the right upper lobe mass. Mild mass effect on the superior vena cava, which remains patent. No pericardial effusion. Moderate left pleural effusion unchanged in size. Significant pleural thickening and interval increase in pleural-based soft tissue nodularity. The largest nodule is noted in the posterior costophrenic sulcus measuring approximately 3.6 cm (series 2 image 48). Upper abdomen unremarkable. Please see separately dictated CT of the abdomen and pelvis. On lung windows, moderate emphysema. Large infiltrative mass emanating from the right upper lobe and extending to the right hilum. The mass is overall unchanged in size from the prior exam. However, persistent encasement and now complete obstruction of the right middle lobe bronchus is new from prior. Resulting volume loss and complete consolidation of the right middle lobe. Narrowing of the right upper lobe and lower lobe bronchi. The mass also extends along the major fissure, involving the subjacent right lower lobe. Right lower lobe solid nodules likely represent metastatic disease, unchanged. Overall slight volume loss of the right lower lobe. Dependent nodularity in the left lower lobe, increased from prior. Additionally, centrilobular groundglass tree-in-bud opacities in the dependent portions of the left lower lobe. On bone windows, degenerative changes of the thoracic spine. Compression deformity of the T8 vertebral body. Significant degenerative change noted at the thoracolumbar junction. IMPRESSION: 1. No significant change in the size of the infiltrative right upper lobe mass with extension to the adjacent right hilum. However, interval development of complete obstruction of the right middle lobe bronchus resulting in right middle lobe collapse. Likely direct infiltration/extension into the right lower lobe via the right major fissure. Suspected metastatic satellite nodules in the right lower lobe, unchanged. 2. Interval development of right pleural metastatic disease with persistent moderate right effusion. This is consistent with progression of disease. 3. New nodularity at the left lung base, which could represent contralateral metastatic disease. However, the presence of groundglass tree-in-bud opacities also raises suspicion for bronchiolitis from infection or aspiration, although this can also be seen in the setting of endobronchial spread of metastatic disease. 4. Persistent mediastinal lymphadenopathy. 5. Emphysema. 6. 7. 8. Electronically signed by: Roman Britt M.D. 9. 11/02/2016 12:36 PM 10. 11. Dictated Date/Time: 11/02/2016 12:22 PM
== END | disposition home or self-care (01) ==
LOC: C.CTS 11:32
PROVIDERS: ATTEND Internal Medicine Hematology & Oncology
DX: C34.81 Malignant neoplasm of overlapping sites of right bronchus and lung (principal); J43.9 Emphysema, unspecified